=== PATIENT | male | born 1935 | race Caucasian/White ===

== ENCOUNTER 2019-01-03 20:43 | Observation (INO) ==
[2019-01-04] MEDS ORDERED: *HR* Heparin 5,000 UNIT/ML VIAL IVP PRN ×2 (02:38)
[2019-01-04] MEDS ORDERED: Heparin 25,000 UNIT/250 ML D5W 25,000 UNIT/250 ML IV.SOLN IVC SCH (02:45)
[2019-01-04 03:22] LABS: Hemoglobin 8.7 g/dL (12.9-16.9)
[2019-01-04 03:23] LABS: Hematocrit 27.2 % (37.5-50.1); Immature Platelets 5.2 % (1.1-6.1); Mean Corpuscular Hemoglobin 28.7 pg (28.0-33.3); Mean Corpuscular Volume 89.8 fL (83.0-100.0); Mean Platelet Volume 11.2 fL (9.4-12.4); Red Blood Count 3.03 M/mcL (4.19-5.50); Red Cell Distribution Width 14.5 % (11.5-14.5); White Blood Count 5.9 K/mcL (4.3-11.1)
[2019-01-04 03:29] LABS: Prothrombin Time 23.2 Seconds (9.4-12.1)
[2019-01-04 03:43] LABS: Calcium 8.5 mg/dL (8.6-10.3); Digoxin 0.6 ng/mL (0.8-2.0); Potassium 5.7 mEq/L (3.5-5.1)
[2019-01-04] MEDS ORDERED: Naloxone 0.4 MG/ML INJ IVP PRN (03:44)
[2019-01-04 03:47] LABS: Troponin I 0.08 ng/mL (< 0.04)
[2019-01-04] MEDS ORDERED: D5% in Water 1,000 ML IVC PRN (04:25)
[2019-01-04] MEDS ORDERED: *HR* Dextrose 50 % in Water (Syg) 50 ML SYRINGE IVP PRN (04:25)
[2019-01-04] MEDS ORDERED: Dextrose Gel 15 GM/37.5 ML TUBE PO PRN ×2 (04:25)
[2019-01-04] MEDS ORDERED: Albuterol 2.5 MG/3 ML NEBULIZER IH ONE (04:29)
--- NOTE | 2019-01-04 04:38 | Internal Med History&Physical ---
Date of Encounter: 01/04/19 Time of Encounter: 03:00 Internal Medicine - H&P: HPI Chief complaint: Hyperkalemia Admitted From: Hospital to Hospital Transfer Plans for Post Hospital Care: Home History of present illness: Mr. 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 He was unclear exactly which lab value was abnormal however. He figured that it was perhaps his hemoglobin. He states that he has been feeling somewhat dizzy over the last few days as well and somewhat short of breath. He denied other complaints. He had gone to see his school guard for routine checkup. [employer] vital signs: Temperature 97.8, pulse 60, respiratory rate 16, blood pressure 112/63, O2 saturation 97% on room air. [employer] [facility] lab values: CBC: white count 7.5, hemoglobin 9.4, platelets 108 BMP: Sodium 132, potassium 5.9, bicarbonate 22, chloride 104, B1 53, creatinine 1.93, glucose 252. Lactic acid 1.2 Troponin 0.07 BNP 274 INR 1.9 Urinalysis negative for infection EKG: Heart rate 70, ventricularly paced rhythm, QTC 488. Similar to previous EKG performed in June of this year. Chest x-ray showed moderate left lower lobe opacity which may represent atelectasis, pleural fluid or underlying pneumonia. There is also mild pulmonary edema and a small moderate right pleural effusion In the [facility] emergency department patient received a 500 mL bolus of IV fluids, 40 mg of Lasix and was started on heparin drip due to elevated troponin level and an INR of 1.9. He was transferred to [facility] for further management. Upon my evaluation, patient is resting comfortably in hospital bed in no acute distress. He denies chest pain, abdominal pain, nausea, vomiting, diarrhea, constipation, shortness of breath and cough. Aside from his intermittent dizziness that he has experienced over the last few weeks, he has no complaints. Upon arrival to [facility] stat labs were obtained which demonstrated an improved INR of 2.0, improved renal function with creatinine of 1.88, and a slightly improved potassium level of 5.7. Patient's troponin did increase slightly to 0.08. Digoxin level was also obtained and was 0.6. The heparin drip was stopped. Patient is a full code. Past Med Surg Social Fam HX - Past Medical History Medical history: atrial fibrillation, cancer, coronary artery disease, diabetes, hyperlipidemia, hypertension, myocardial infarction Additional medical history: pacemaker Psychiatric history: no psych history - Past Surgical History Surgical History: orthopedic, other, pacemaker/AICD Additional surgical history: left shoulder. r eye lid - Social History Smoking Status: Former smoker Smokeless Tobacco Status: No Alcohol use: none Drug use: none Internal Medicine - H&P: Meds Digoxin [Lanoxin] 0.125 mg PO DAILY 04/27/15 [History] Finasteride [Proscar] 5 mg PO DAILY 04/27/15 [History] Furosemide [Lasix] 40 mg PO DAILY 04/27/15 [History] Lisinopril [Zestril] 10 mg PO BID 04/27/15 [History] Magnesium Oxide [Magnesium] 400 mg PO BID 04/27/15 [History] Metoprolol [Lopressor] 50 mg PO BID 04/27/15 [History] Omeprazole [PriLOSEC] 20 mg PO DAILY 04/27/15 [History] Potassium Chloride [Klor-Con M15] 10 meq PO BID 04/27/15 [History] Simvastatin [Zocor] 40 mg PO HS 04/27/15 [History] Tamsulosin [Flomax] 0.4 mg PO HS 04/27/15 [History] Warfarin [Coumadin] 1 mg PO DAILY 04/27/15 [History] Insulin Glargine,Hum.rec.anlog [Lantus Solostar] 70 unit SQ DAILY 03/18/17 [History] Levothyroxine Sodium [Tirosint] 25 mcg PO DAILY 06/28/18 [History] Ergocalciferol (VITAMIN D2) [Vitamin D2] 50,000 unit PO QWEEK 01/03/19 [History] Loratadine [Claritin] 10 mg PO DAILY 01/03/19 [History] predniSONE [PredniSONE] 20 mg PO DAILY 01/03/19 [History] Allergy/AdvReac Type Severity Reaction Status Date / Time No Known Allergies Allergy Verified 03/18/17 21:11 All Systems PM: A 10-system review of systems was performed and is negative for pertinent findings except as documented above in the HPI. - Constitutional Vitals: Temp Pulse Resp BP Pulse Ox 97.9 F 62 15 110/64 98 01/04/19 03:35 01/04/19 03:35 01/04/19 03:35 01/04/19 03:35 01/04/19 03:35 General appearance: Present: cooperative, A&O X 3, pleasant, no acute distress, answers questions appropriately Exam: - - Head Head exam: Present: normal inspection - Eye Eye exam: Present: EOMI, normal appearance - Respiratory Respiratory exam: Present: decreased breath sounds, CTAB. Absent: rales, respiratory distress, rhonchi, wheezes - Cardiovascular Cardiovascular exam: Present: RRR. Absent: diastolic murmur, systolic murmur - GI/Abdominal GI/Abdominal exam: Present: normal bowel sounds, soft. Absent: tenderness - Extremities Exam Extremities exam: Present: warm, radial pulses palpable and symmetrical. Absent: calf tenderness, pedal edema, tenderness - Neurological Exam Neurological exam: Present: no focal deficits, strengths equal and symetr throughout. Absent: motor sensory deficit, facial droop, speech deficit - Skin Skin exam: Present: dry, normal color, warm Internal Med - H&P Results - Labs CBC & Chem 7: 01/04/19 03:07 01/04/19 03:07 Labs: Short CBC 01/04/19 Range/Units 03:07 WBC 5.9 (4.3-11.1) K/mcL Hgb 8.7 L (12.9-16.9) g/dL Hct 27.2 L (37.5-50.1) % Plt Count 90 L (140-400) K/mcL BMP 01/04/19 03:07 Sodium 135 L Potassium 5.7 H Chloride 103 Carbon Dioxide 21 L BUN 53 H Creatinine 1.88 H Glucose 215 H Calcium 8.5 L Cardiac Enzymes 01/04/19 Range/Units 03:07 Troponin I 0.08 H* (< 0.04) ng/mL - Assessment and Plan (1) Hyperkalemia Current Visit: No Status: Acute Assessment and plan: Potassium level 5.9, on repeat improved to 5.7. No peaked T waves on EKG. Patient takes supplemental potassium at home, as he is on Lasix. Hold potassium Giving albuterol nebulizer Kayexalate 15 g Calcium gluconate Subcutaneous insulin Cardiac telemetry Repeat BMP in 6 hours (2) Abnormal cardiac enzyme level Current Visit: No Status: Acute Assessment and plan: Patient has elevated cardiac enzymes, however a review of his prior troponins indicate he has had a chronically elevated troponin. Currently his troponin levels are lower than his previous values. He is therapeutic with his Coumadin, denies chest pain and EKG is nonischemic, and similar to his previous EKG. echocardiogram performed in June of this year: Impressions: LVEF 60%. Mild left ventricular diastolic dysfunction. Definity echo contrast was used. Normal right ventricular structure and function. Mild tricuspid regurgitation. No pulmonary hypertension by TR gradient. There is a trivial pericardial effusion present. There is no echocardiographic evidence of tamponade. Cardiac telemetry Continue to trend troponin Continue anticoagulation Limited echocardiogram (3) Abnormal chest x-ray Current Visit: Yes Status: Acute Assessment and plan: Patient's chest x-ray did demonstrate moderate left lower lobe opacity, possible underlying pneumonia or pleural fluid. Patient has not had a cough and denies shortness of breath. Patient's white count also not elevated. He does not meet sepsis criteria. Etiology unclear, could be pleural fluid or atelectasis. Patient did receive a 500 mL bolus of IV fluids at [facility] emergency department. Breath sounds clear on exam. No increased work of breathing. Blood cultures obtained Hold off on antibiotics for now Obtain urine antigens Monitor for worsening signs of infection (4) Acute kidney injury Current Visit: No Status: Acute Assessment and plan: Patient has history of chronic kidney disease stage III. Follows with nephrology. Slight improvement in creatinine from the [facility] labs. He did receive a 500 mL bolus of IV fluids. Avoid nephrotoxic medications Really dose meds Continue gentle IV fluid hydration Monitor respiratory function (5) Atrial fibrillation Current Visit: Yes Status: Acute Assessment and plan: Patient on Coumadin and metoprolol. Continue home meds Cardiac telemetry Qualifiers: Atrial fibrillation type: chronic Qualified Code(s): I48.2 - Chronic atrial fibrillation (6) Diabetes Current Visit: Yes Status: Acute Assessment and plan: Patient is an insulin dependent diabetic Monitor sugars every 6 hours Nothing by mouth Low dose insulin sliding scale as needed Hold home meds. 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 He has seen hematology/oncology for this. Will try to avoid heparin drip if poss ible, heparin drip started at [facility] has been discontinued. Patient is therapeutic on his Coumadin however. Continue to monitor (8) DVT prophylaxis Current Visit: Yes Status: Acute Assessment and plan: Continue home Coumadin, currently in therapeutic range Pharmacy to dose Monitor INRs - Time Spent With Patient Total time spent is greater than 50% in coordination of care (as documented) at patient's floor/unit and/or counseling patient:
[2019-01-04] MEDS ORDERED: Calcium Gluconate 1gm/50mL 1 GM/50 ML BAG IVPB ONE (05:00)
[2019-01-04] MEDS: 0.9 % Sodium Chloride 500 ML IVC SCH ×2 (05:09→11:01)
[2019-01-04] MEDS ORDERED: Insulin LISPRO 300 UNITS/3 ML VIAL SQ SCH (06:00)
[2019-01-04] MEDS: Insulin LISPRO 300 UNITS/3 ML VIAL SQ SCH ×3 (11:59→21:36)
[2019-01-04 12:05] LABS: Calcium 8.4 mg/dL (8.6-10.3); Potassium 5.2 mEq/L (3.5-5.1)
--- NOTE | 2019-01-04 13:35 | Cardiology Consult Note ---
<Mckenna Newton - Last Filed: 01/04/19 14:51> Date of Encounter: 01/04/19 Time of Encounter: 14:00 Assessment and Plan (1) Elevated troponin Current Visit: Yes Status: Acute Mild troponin elevation in the setting of hyperkalemia, ANNELIESE. Presentation is not consistent with ACS. No chest pain. No ECG changes present. Upon review, appears patient has chronic troponin elevation. TTE this admission shows preserved LVEF with normal wall motion. Will restart home BB at reduced dose given marginal BP. On coumadin for afib. Resume statin. Continue medical therapy. No further cardiac testing recommended at this time. (2) Atrial fibrillation Current Visit: Yes Status: Acute Hx of afib on Coumadin for AC. INR monitored by Dr. Tapia. Rate controlled upon exam, paced rhythm. Will resume home BB at reduced dose given marginal BP. Resume digoxin, if able upon d/c if renal function normalizes. HgB 8.7, PLT 90. Thrombcytopenia appears to be chronic; however H/H continues to gradually downtrend. Recommend GI consult prior to d/c given he is on full anticoagulation with coumadin. Qualifiers: Atrial fibrillation type: persistent Qualified Code(s): I48.1 - Persistent atrial fibrillation Discussion w patient/family: The assessment and plan as outlined above was discussed with the patient and/or family members who expressed understanding and agreement. All questions were answered. Thank you for involving us in the care of your patient. Please call with any questions. The patient will be discussed and reviewed with Dr. Staley; changes to be made accordingly. History of Present Illness Consult date: 01/04/19 Requesting physician: Adolfo Ann Consult reason: Elevated troponin Chief complaint: Dizziness History of present illness: Mr. Burnett is a 83 year old male with PMHx significant of afib on coumadin, tachybrady syndome s/p PPM, HTN, and HLD who presented to the ED under direction of Dr. Tapia (primary Vehicle Check In Clerk) due to abnormal labs. He is unsure which lab result was abnormal, could have been his potassium. He reports dizziness that was also present at time of admission that has since resolved. Lab results revealed SCr 1.9, K 5.9. He was given IVF in the ED and patient reports his dizziness resolved. He was sent to [facility] for further evaluation. Past Med Surg Social Fam HX - Past Medical History Attestation: Yes The following information was validated with the patient. Source: patient Medical history: atrial fibrillation, cancer, coronary artery disease, diabetes, hyperlipidemia, hypertension, myocardial infarction Additional medical history: pacemaker Psychiatric history: no psych history - Past Surgical History Surgical History: orthopedic, other, pacemaker/AICD Additional surgical history: left shoulder. r eye lid - Social History Smoking Status: Former smoker Smokeless Tobacco Status: No Alcohol use: none Drug use: none - Family History Mother History Unknown: Yes Father History Unknown: Yes Medications and Allergies Digoxin [Lanoxin] 0.125 mg PO DAILY 04/27/15 [History] Finasteride [Proscar] 5 mg PO DAILY 04/27/15 [History] Furosemide [Lasix] 40 mg PO DAILY 04/27/15 [History] Lisinopril [Zestril] 10 mg PO BID 04/27/15 [History] Magnesium Oxide [Magnesium] 400 mg PO BID 04/27/15 [History] Metoprolol [Lopressor] 50 mg PO BID 04/27/15 [History] Omeprazole [PriLOSEC] 20 mg PO DAILY 04/27/15 [History] Potassium Chloride [Klor-Con M15] 10 meq PO BID 04/27/15 [History] Simvastatin [Zocor] 40 mg PO HS 04/27/15 [History] Tamsulosin [Flomax] 0.4 mg PO HS 04/27/15 [History] Warfarin [Coumadin] 1 mg PO DAILY 04/27/15 [History] Insulin Glargine,Hum.rec.anlog [Lantus Solostar] 70 unit SQ DAILY 03/18/17 [History] Levothyroxine Sodium [Tirosint] 25 mcg PO DAILY 06/28/18 [History] Ergocalciferol (VITAMIN D2) [Vitamin D2] 50,000 unit PO QWEEK 01/03/19 [History] Loratadine [Claritin] 10 mg PO DAILY 01/03/19 [History] predniSONE [PredniSONE] 20 mg PO DAILY 01/03/19 [History] Allergy/AdvReac Type Severity Reaction Status Date / Time No Known Allergies Allergy Verified 03/18/17 21:11 All Systems Review: The remainder of the systems were reviewed and are negative - Cardiovascular Cardiovascular: as per HPI Physical Examination Vital Signs, Last 4 Hours Temp Pulse Resp BP Pulse Ox 01/04/19 10:50 97.6 F 63 17 104/61 97 General: Conversant, No Apparent Distress, Other (elderly white male) HEENT: Atraumatic, Normocephaly, Mucus Membranes Moist Cardiac: Reg Rate and Rhythm, Normal S1 and S2 Lungs: Normal Breath Sounds Neuro: Alert and responsive Abdomen: Soft Skin: No rashes noted on visualized skin Musculoskeletal: No Chest Wall Tenderness Extremities: No Edema, Normal Pulses Results 01/04/19 03:07 01/04/19 10:18 Lab Results 01/04/19 01/04/19 01/04/19 03:07 03:07 03:07 WBC 5.9 Hgb 8.7 L Hct 27.2 L Plt Count 90 L INR 2.0 Sodium 135 L Potassium 5.7 H Chloride 103 Carbon Dioxide 21 L BUN 53 H Creatinine 1.88 H Glucose 215 H Calcium 8.5 L Troponin I 0.08 H* 01/04/19 10:18 WBC Hgb Hct Plt Count INR Sodium 135 L Potassium 5.2 H Chloride 105 Carbon Dioxide 21 L BUN 48 H Creatinine 1.88 H Glucose 157 H Calcium 8.4 L Troponin I Active Medications Dextrose/Water (Dextrose 50% (Syg)) 25 ml IVP AD PRN PRN Reason: Hypoglycemia Stop: 07/06/19 04:26 Glucagon (Glucagen) 1 mg IM ONCE PRN PRN Reason: Hypoglycemia Stop: 07/06/19 04:26 Glucose (Gluctose) 15 gm PO ONCE PRN PRN Reason: Hypoglycemia Stop: 07/06/19 04:26 Glucose (Gluctose) 30 gm PO ONCE PRN PRN Reason: Hypoglycemia Stop: 07/06/19 04:26 Dextrose (Dextrose 5%) 1,000 mls @ 100 mls/hr IVC .Q10H PRN PRN Reason: HYPOGLYCEMIA Stop: 07/06/19 04:26 Insulin Human Lispro (Humalog) 0 units SQ ACHS [facility]; Protocol Stop: 07/06/19 11:31 Last Admin: 01/04/19 11:59 Dose: 4 units Documented by: Naloxone HCl (Narcan) 0.4 mg IVP Q2MPRN PRN PRN Reason: SEE COMMENTS Stop: 07/06/19 03:45 Warfarin Sodium (Coumadin Perpt) 1 each PO DAILY@1800 PRN; Protocol PRN Reason: Placeholder Stop: 07/06/19 18:01 Warfarin Sodium (Coumadin) 0.5 mg PO 1800 ONE Stop: 01/04/19 18:01 - Imaging and Cardiology Echo: report reviewed Other Results: 12 hour tele; avg HR=74 paced rhythm. - EKG Interpretation EKG results cardiology: personally reviewed Consult Discharge Plan - Plan Referrals: NONE,PCP [Primary Care Provider] - Farhad Rodas, DIRECTOR OF DATABASE MARKETING [Non-Partnered Physician] - 01/07/19 10:00 am (Please follow up as schedule...) <Miles Staleyrey - Last Filed: 01/04/19 16:23> Date of Encounter: 01/04/19 - Attending Attestation I have personally performed a face to face evaluation on this patient. I have reviewed and agree with the care plan. History and Exam by me shows: Sent to ER for abnormal labs. Had elevated potassium, creatinine and troponin. No evidence of ACS. Renal function and potassium have improved with hydration. Troponin elevation is chronic and likely secondary to renal failure. Assessment and Plan Discussion w patient/family: The assessment and plan as outlined above was discussed with the patient and/or family members who expressed understanding and agreement. All questions were answered. Thank you for involving us in the care of your patient. Please call with any questions. History of Present Illness History of present illness: Mr. Burnett is a 83 year old male All Systems Review: The remainder of the systems were reviewed and are negative Physical Examination Vital Signs, Last 4 Hours Temp Pulse Resp BP Pulse Ox 01/04/19 15:21 97.7 F 67 16 114/69 98 Results 01/04/19 03:07 01/04/19 10:18 Lab Results 01/04/19 01/04/19 01/04/19 03:07 03:07 03:07 WBC 5.9 Hgb 8.7 L Hct 27.2 L Plt Count 90 L INR 2.0 Sodium 135 L Potassium 5.7 H Chloride 103 Carbon Dioxide 21 L BUN 53 H Creatinine 1.88 H Glucose 215 H Calcium 8.5 L Troponin I 0.08 H* 01/04/19 10:18 WBC Hgb Hct Plt Count INR Sodium 135 L Potassium 5.2 H Chloride 105 Carbon Dioxide 21 L BUN 48 H Creatinine 1.88 H Glucose 157 H Calcium 8.4 L Troponin I
--- NOTE | 2019-01-04 15:37 | Event Note ---
Date of Encounter: 01/04/19 Time of Encounter: 08:00 H & P reviewed. Pt was seen at bedside. No interval events. Pt denies any acute complaints. Troponin continues to remain same and mildly elevated, no cardiac interventions planeed, echo with no new findings. Regarding drop in hgb, will consult GI for possible scope. Potassium continues to improve Will be monitored
--- NOTE | 2019-01-04 16:52 | Event Note ---
Date of Encounter: 01/04/19 Time of Encounter: 16:30 FOBT posiitve Will hold coumadin D/W Dr. Koenig, will keep the pt NPO for possible endoscopyy tomorrow
--- NOTE | 2019-01-04 17:32 | Internal Medicine Consult Note ---
Date of Encounter: 01/07/19 Time of Encounter: 17:32 - Assessment and Plan (1) Anemia Status: Chronic Assessment and plan: This gentleman has had a slight drop in his hemoglobin since admission, his INR is right around 2.0. I am not convinced there is GI bleeding, in fact looking through previous charts and diagnosis. It looks like he he has a long-standing anemia, most likely due to chronic kidney disease. I reviewed previous bone marrow aspirates Currently is not interested in providing upper endoscopy, nor my suspicion is that he requires at this time, I will try to reach out to the daughter to provide some information. I have discussed risks and benefits of upper endoscopy with him if we do have to pursue that. Qualifiers: Anemia type: unspecified type Qualified Code(s): D64.9 - Anemia, unspecified (2) Acute on chronic diastolic (congestive) heart failure Status: Acute (3) Atrial fibrillation Status: Acute Qualifiers: Atrial fibrillation type: persistent Qualified Code(s): I48.1 - Persistent atrial fibrillation (4) Diabetes Status: Chronic Qualifiers: Diabetes mellitus type: type 2 Diabetes mellitus fdc insulin use: with dedicated intermodal truck driver use Diabetes mellitus complication status: with hyperglycemia Qualified Code(s): E11.65 - Type 2 diabetes mellitus with hyperglycemia; Z79.4 - MCFP (current) use of insulin (5) Thrombocytopenia Status: Chronic Assessment and plan: 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 Internal Medicine - CN: HPI - Data of Consult Requesting Physician: Jesús Webber - Consult Narrative Reason for consult: Drop in hemoglobin History of present illness: Mr. Burnett is a 83 year old male, currently seen in the general medical floor, I was called by the hospitalist roughly an hour ago, this gentleman has had a slight trend down of less than 1 g of hemoglobin in the past 24 hours, apparently was also Hemoccult positive. This gentleman is resting in bed very comfortable, very stoic somewhat quiet. No distress noted. He reports no abdominal pain, change in his bowel movements, no nausea no vomiting or reflux symptoms. He is on PPI therapy, but cannot tell me why, he a lso takes Coumadin for chronic atrial fibrillation. He actually was a direct admit from family practice office or cardiology, due to what may have been a drop in hemoglobin. I have currently explain the possible benefits of upper endoscopy with him with risks and benefits, but is not sure he wants to be that aggressive in his care. He understands , we will have to hold the Coumadin for at least a while if not for a good long time, and risk of stroke certainly is possible. Past Med Surg Social Fam HX - Past Medical History Medical history: atrial fibrillation, cancer, coronary artery disease, diabetes, hyperlipidemia, hypertension, myocardial infarction, other (Reports a history of colon cancer sometime ago. Also reports pacemaker) Additional medical history: pacemaker Psychiatric history: no psych history - Past Surgical History Surgical History: orthopedic, other, pacemaker/AICD Additional surgical history: left shoulder. r eye lid - Social History Smoking Status: Former smoker Smokeless Tobacco Status: No Alcohol use: none Drug use: none - Family History Mother History Unknown: Yes Father History Unknown: Yes - Constitutional Constitutional: no anorexia, no fatigue, no fever(s), no malaise, no weight loss - Cardiovascular Cardiovascular ROS IM: irregular heart rhythm, no chest pain, no dyspnea, no dyspnea on exertion, no syncope - Respiratory Respiratory: no cough, no dyspnea, no chest congestion - Gastrointestinal Gastrointestinal: no abdominal pain, no diarrhea, no heartburn, no hematemesis, no hematochezia, no loose stools, no melena - Neurological Neurological ROS: no abnormal gait, no abnormal speech, no confusion Internal Medicine - CN: Meds Finasteride [Proscar] 5 mg PO DAILY 04/27/15 [History] Furosemide [Lasix] 40 mg PO DAILY 04/27/15 [History] Magnesium Oxide [Magnesium] 400 mg PO BID 04/27/15 [History] Omeprazole [PriLOSEC] 20 mg PO DAILY 04/27/15 [History] Simvastatin [Zocor] 40 mg PO HS 04/27/15 [History] Tamsulosin [Flomax] 0.8 mg PO HS 04/27/15 [History] Warfarin [Coumadin] 1 mg PO DAILY 04/27/15 [History] Insulin Glargine,Hum.rec.anlog [Lantus Solostar] 70 unit SQ DAILY 03/18/17 [History] Levothyroxine Sodium [Tirosint] 25 mcg PO QAM 06/28/18 [History] Ergocalciferol (VITAMIN D2) [Vitamin D2] 50,000 unit PO QWEEK 01/03/19 [History] Loratadine [Claritin] 10 mg PO DAILY 01/03/19 [History] Lisinopril 2.5 mg PO DAILY 01/04/19 [History] Metoprolol [Lopressor] 25 mg PO BID #0 01/05/19 [Rx] Allergy/AdvReac Type Severity Reaction Status Date / Time No Known Allergies Allergy Verified 03/18/17 21:11 Internal Med - CN: Exam - Constitutional Vitals: Temp Pulse Resp BP Pulse Ox 97.7 F 67 16 114/69 98 01/04/19 15:01/04/19 15:01/04/19 15:01/04/19 15:01/04/19 15:21 General appearance IM: Present: A&O X 3, pleasant, no acute distress, answers questions appropriately - Head Head exam: Present: atraumatic - Eye Eye exam: Present: EOMI, conjuntiva pink, sclera anicteric - Neck Neck exam general surgery: Present: full ROM, supple, trachea midline. Absent: nuchal rigidity - Respiratory Respiratory exam: Present: CTAB - Cardiovascular Cardiovascular exam IM: Present: RRR, +S1, +S2. Absent: JVD - GI/Abdominal GI/Abdominal exam IM: Present: normal bowel sounds, soft, no peritoneal signs. Absent: hepatomegaly, rebound, rigid, splenomegaly - Rectal Rectal exam: Present: deferred Internal Medicine - CN: Reslt - Labs CBC & Chem 7: 01/05/19 04:36 01/05/19 04:36 Labs: Short CBC 01/04/19 Range/Units 03:07 WBC 5.9 (4.3-11.1) K/mcL Hgb 8.7 L (12.9-16.9) g/dL Hct 27.2 L (37.5-50.1) % Plt Count 90 L (140-400) K/mcL BMP 01/04/19 01/04/19 03:07 10:18 Sodium 135 L 135 L Potassium 5.7 H 5.2 H Chloride 103 105 Carbon Dioxide 21 L 21 L BUN 53 H 48 H Creatinine 1.88 H 1.88 H Glucose 215 H 157 H Calcium 8.5 L 8.4 L Cardiac Enzymes 01/04/19 Range/Units 03:07 Troponin I 0.08 H* (< 0.04) ng/mL - ABG Interpretation ABG results: PT/INR, D-dimer PT 23.2 Seconds (9.4-12.1) H 01/04/19 03:07 - Impressions Impressions Echocardiogram Limited Views 01/04/19 11:02 Impressions: LVEF 60%. Normal LV chamber size and function. Mild concentric left ventricular hypertrophy. Atypical septal motion consistent with paced rhythm. Pleural effusion noted. Findings: Study Quality * Technically sub-optimal due to poor echocardiographic windows. ECG Findings * Paced rhythm. Left Ventricle * LVEF 60%. * Normal LV chamber size and function. * Mild concentric left ventricular hypertrophy. * Atypical septal motion consistent with paced rhythm. Aorta * Normally sized aortic root. Pericardium * There is a trivial pericardial effusion present. Pleural Effusion * Pleural effusion noted. Device lead * A device lead was visualized in the right atrium and right ventricle. Consult Discharge Plan - Plan Instructions: Upper Gastrointestinal Endoscopy (DC) Additional Instructions: Frequent small meals Avoid heavy fiber Do not take supplemental potassium Follow up with PCP in 1 week. Referrals: NONE,PCP [Primary Care Provider] - Farhad Rodas CNP [Non-Partnered Physician] - 01/07/19 10:00 am (Please follow up as schedule...) Joseph Pimentel MD [Partnered Physician] -
[2019-01-04] MEDS ORDERED: *HR* Warfarin 1 MG TABLET PO ONE (18:00)
[2019-01-04] MEDS ORDERED: Warfarin perPT PO PRN (18:00)
[2019-01-05 05:27] LABS: Eosinophils # 0.1 K/mcL (0.0-0.6); Eosinophils % 1.6 %; Immature Granulocytes % 0.4 % (0-4); Lymphocytes # 0.9 K/mcL (0.6-4.6); Lymphocytes % 11.9 %; Mean Corpuscular Hemoglobin 28.3 pg (28.0-33.3); Mean Corpuscular Volume 91.2 fL (83.0-100.0); Mean Platelet Volume 11.1 fL (9.4-12.4); Monocytes # 0.6 K/mcL (0.0-1.3); Monocytes % 7.4 %; Neutrophils # 5.9 K/mcL (1.6-8.9); Platelet Count 104 K/mcL (140-400); Red Blood Count 3.18 M/mcL (4.19-5.50); Red Cell Distribution Width 14.7 % (11.5-14.5); Segmented Neutrophils % 78.7 %; White Blood Count 7.5 K/mcL (4.3-11.1)
[2019-01-05 05:32] LABS: INR 2.4; Prothrombin Time 27.4 Seconds (9.4-12.1)
[2019-01-05 05:45] LABS: Calcium 8.4 mg/dL (8.6-10.3)
--- NOTE | 2019-01-05 08:16 | Event Note ---
Date of Encounter: 01/05/19 Time of Encounter: 08:12 I had a short visit with the patient this morning, he is still not wanting to have upper endoscopy. There is noted trend of his hemoglobin down to's morning, otherwise admits having no abdominal pain and seeing no blood in his bowels. Rectal exam this morning disclosed can stool, no melena. A benign abdominal exam, with mild firm abdomen, active bowel sounds, nonpainful to palpation. Looking back through his outpatient record, it appears 6 months ago, his hemoglobin was stable. I do believe he needs iron studies, along with B12 and folate and so we will get those ordered. Again not convinced he has had a GI bleed at this time. Still trying to reach his daughter as well to have a further discussion.
[2019-01-05] MEDS: Insulin LISPRO 300 UNITS/3 ML VIAL SQ SCH ×2 (08:45→13:32)
[2019-01-05] MEDS ORDERED: Loratadine 10 MG TABLET PO SCH (09:00)
[2019-01-05] MEDS ORDERED: Finasteride 5 MG TABLET PO SCH (09:00)
[2019-01-05] MEDS ORDERED: Furosemide 40 MG TABLET PO SCH (09:00)
[2019-01-05] MEDS ORDERED: Levothyroxine 25 MCG TABLET PO SCH (09:00)
[2019-01-05] MEDS ORDERED: Magnesium Oxide 400 MG TABLET PO SCH (09:00)
[2019-01-05 09:13] LABS: Alanine Aminotransferase 14 Units/L (7-52); Lactate Dehydrogenase 156 Units/L (140-271)
[2019-01-05 09:15] LABS: % Iron Saturation 28 % (20-55); Iron 49 mcg/dL (65-175); Transferrin 123 mg/dL (203-362)
[2019-01-05 09:28] LABS: Ferritin 683 ng/mL (20-250)
[2019-01-05 09:33] LABS: Folate 6.9 ng/mL (3.0-16.0)
[2019-01-05] MEDS ORDERED: FLU Vac QV 19-20 (6Month+)/PF 0.5 ML SYRINGE IM ONE (09:43)
[2019-01-05] MEDS ORDERED: *HR* FentaNYL (PF) 100 MCG/2 ML VIAL ONE (11:49)
[2019-01-05] MEDS ORDERED: Simethicone 40 MG/0.6 ML MLS IR ONE (11:50)
[2019-01-05] MEDS ORDERED: *HR* Midazolam HCl 5 MG/5 ML VIAL IVP ONE ×2 (11:50)
[2019-01-05] MEDS ORDERED: Tetracaine/Benzocaine/Butamben 1 SPRAY AEROSOL MM ONE (11:50)
[2019-01-05] MEDS ORDERED: *HR* FentaNYL (PF) 100 MCG/2 ML VIAL IVP ONE (11:50)
--- NOTE | 2019-01-05 11:51 | Pre-Sedation Evaluation ---
Pre-sedation evaluation - Pre-sedation checklist Date of procedure: 01/05/19 (') Procedure: EGD Recent Vitals: Last Vital Signs Temp 97.7 F 01/05/19 08:01 Pulse 65 01/05/19 08:01 Resp 16 01/05/19 08:01 BP 124/64 01/05/19 08:01 Pulse Ox 98 01/05/19 08:51 H&P (including ROS) documented in medical record: Yes Previous reaction to sedatives/anesthetics: No Dietary Status: NPO after Midnight Airway Assessment: Patient can open mouth completely, TMJ function normal Dentition: No loose teeth or bridges Possible difficult airway: No ASA Classification *see protocol: CLASS II-Mild systemic disease Plan of Care: Pt appropriate candidate for procedure/moderate/conscious sedation
--- NOTE | 2019-01-05 12:13 | Internal Med Progress Note ---
Date of Encounter: 01/07/19 Time of Encounter: 12:11 - Assessment and plan (1) Anemia Status: Chronic Assessment and plan: Other labs pending for Anemia.. does not have any source for Upper GI bleeding. Stool is not melanotic. Does have Bilroth 1 anastomosis, consistent with prior Gastric Lymphoma resection. 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 Avoid heavy fiber Qualifiers: Qualified Code(s): T18.2XXA - Foreign body in stomach, initial encounter - Constitutional Vitals: Temp Pulse Resp BP Pulse Ox 97.7 F 61 18 97/53 99 01/05/19 08:01 01/05/19 12:05 01/05/19 12:05 01/05/19 12:05 01/05/19 12:05 General appearance: Present: A&O X 3, pleasant, no acute distress, answers ques tions appropriately Internal Medicine: Result - Labs CBC & Chem 7: 01/05/19 04:36 01/05/19 04:36 Labs: Short CBC 01/05/19 Range/Units 04:36 WBC 7.5 (4.3-11.1) K/mcL Hgb 9.0 L (12.9-16.9) g/dL Hct 29.0 L (37.5-50.1) % Plt Count 104 L (140-400) K/mcL Neutrophils # 5.9 (1.6-8.9) K/mcL BMP 01/05/19 04:36 Sodium 135 L Potassium 5.0 Chloride 105 Carbon Dioxide 22 L BUN 54 H Creatinine 1.89 H Glucose 178 H Calcium 8.4 L Cardiac Enzymes 01/04/19 Range/Units 10:18 Troponin I 0.08 H* (< 0.04) ng/mL Liver Function 01/05/19 Range/Units 08:32 ALT 14 (7-52) Units/L - ABG Interpretation ABG results: PT/INR, D-dimer PT 27.4 Seconds (9.4-12.1) H 01/05/19 04:36 - Impressions Impressions Echocardiogram Limited Views 01/04/19 11:02 Impressions: LVEF 60%. Normal LV chamber size and function. Mild concentric left ventricular hypertrophy. Atypical septal motion consistent with paced rhythm. Pleural effusion noted. Findings: Study Quality * Technically sub-optimal due to poor echocardiographic windows. ECG Findings * Paced rhythm. Left Ventricle * LVEF 60%. * Normal LV chamber size and function. * Mild concentric left ventricular hypertrophy. * Atypical septal motion consistent with paced rhythm. Aorta * Normally sized aortic root. Pericardium * There is a trivial pericardial effusion present. Pleural Effusion * Pleural effusion noted. Device lead * A device lead was visualized in the right atrium and right ventricle. Consult Discharge Plan - Plan Instructions: Upper Gastrointestinal Endoscopy (DC) Additional Instructions: Frequent small meals Avoid heavy fiber Do not take supplemental potassium Follow up with PCP in 1 week. Referrals: NONE,PCP [Primary Care Provider] - Farhad Rodas CNP [Non-Partnered Physician] - 01/07/19 10:00 am (Please follow up as schedule...) Joseph Pimentel MD [Partnered Physician] -
[2019-01-05 12:46] VITALS: BP 101/63
--- NOTE | 2019-01-05 13:44 | Discharge Summary ---
- NOTES TO OUTPATIENT PROVIDER Notes to Outpatient Provider: Was brought due to abnormal labs, potassium was elevated as well as troponin. He has chronic troponin elevation, no cardiac interventions done. Stopped potassium he was taking outpatient. May need follow up with the GI as outpt. Orders not resulted at time of discharge: Pending orders 01/04/19 03:26 Blood Culture [Culture,Blood] [BC] Stat 01/05/19 08:32 MMA (VIT B12 STATUS) Routine Date of Encounter: 01/05/19 Time of Encounter: 10:15 - Discharge Diagnosis (1) Anemia Priority: Primary Status: Chronic Qualifiers: Anemia type: unspecified type Qualified Code(s): D64.9 - Anemia, unspecified (2) Atrial fibrillation Priority: Secondary Status: Acute Qualifiers: Atrial fibrillation type: persistent Qualified Code(s): I48.1 - Persistent atrial fibrillation (3) Diabetes Priority: Secondary Status: Chronic Qualifiers: Diabetes mellitus type: type 2 Diabetes mellitus fpc insulin use: with intermediate designer use Diabetes mellitus complication status: with hyperglycemia Qualified Code(s): E11.65 - Type 2 diabetes mellitus with hyperglycemia; 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 Burnett is a 83 year old male who was sent to the hospital after he was called by the attendance secretary for his abnormal labs. Patient troponin was elevated at 0.08, potassium was 5.7 and hemoglobin was 8.7. EKG did not show any new changes. Patient troponin continue to be at 0.08. On further review of the records, it was noted that the patient troponin eas always elevated. Because of the low hemoglobin, FOBT was done which was positive. GI was consulted and patient got endoscopy which showed normal esophagus, no signs of bleeding. Recommendations were to continue PPI. Patient would be started back on his home Coumadin. Regarding his elevated potassium, patient instructed to stop taking supplemental potassium. He is being discharged in stable condition. Advised the patient to stop taking potassium. Patient metoprolol dose was decreased because of low blood pressure. Advised the patient to follow with the PCP and tip cutter as outpatient for his anemia. - Time Spent with Patient Total time spent providing and/or coordinating discharge services: 35 minutes - Discharge Medications Prescriptions: Continued Warfarin [Coumadin] 1 mg PO DAILY Furosemide [Lasix] 40 mg PO DAILY Finasteride [Proscar] 5 mg PO DAILY Omeprazole [PriLOSEC] 20 mg PO DAILY Magnesium Oxide [Magnesium] 400 mg PO BID Tamsulosin [Flomax] 0.8 mg PO HS Simvastatin [Zocor] 40 mg PO HS Lisinopril 2.5 mg PO DAILY Insulin Glargine,Hum.rec.anlog [Lantus Solostar] 70 unit SQ DAILY Levothyroxine Sodium [Tirosint] 25 mcg PO QAM Loratadine [Claritin] 10 mg PO DAILY Ergocalciferol (VITAMIN D2) [Vitamin D2] 50,000 unit PO QWEEK Changed Metoprolol [Lopressor] 25 mg PO BID #0 Discontinued Potassium Chloride [Klor-Con M15] 10 meq PO BID Home Medications: Finasteride [Proscar] 5 mg PO DAILY 04/27/15 [History] Furosemide [Lasix] 40 mg PO DAILY 04/27/15 [History] Magnesium Oxide [Magnesium] 400 mg PO BID 04/27/15 [History] Omeprazole [PriLOSEC] 20 mg PO DAILY 04/27/15 [History] Simvastatin [Zocor] 40 mg PO HS 04/27/15 [History] Tamsulosin [Flomax] 0.8 mg PO HS 04/27/15 [History] Warfarin [Coumadin] 1 mg PO DAILY 04/27/15 [History] Insulin Glargine,Hum.rec.anlog [Lantus Solostar] 70 unit SQ DAILY 03/18/17 [History] Levothyroxine Sodium [Tirosint] 25 mcg PO QAM 06/28/18 [History] Ergocalciferol (VITAMIN D2) [Vitamin D2] 50,000 unit PO QWEEK 01/03/19 [History] Loratadine [Claritin] 10 mg PO DAILY 01/03/19 [History] Lisinopril 2.5 mg PO DAILY 01/04/19 [History] Metoprolol [Lopressor] 25 mg PO BID #0 01/05/19 [Rx] Allergies/Adverse Reactions: Allergy/AdvReac Type Severity Reaction Status Date / Time No Known Allergies Allergy Verified 03/18/17 21:11 Date of admission: 01/03/19 23:53 Primary care physician: PCP NONE Consults: 01/04/19 09:52 Consult to Cardiology [CONS] Routine Comment: Consulting Provider: [facility] Reason for Consult: Elevated troponin, sent by Dr. Tapia Call Completed: Yes 01/04/19 15:32 Consult to Gastroenterology [CONS] Routine Consulting Provider: [facility] Reason for Consult: Drop in hgb , currently on coumadin Call Completed: Yes 01/04/19 16:49 Consult to Physician [CONS] Routine Consulting Provider: Erasmo Koenig Reason for Consult: Endoscopy Call Completed: Yes - Constitutional Vitals: Temp Pulse Resp BP Pulse Ox 97.6 F 63 18 101/63 97 01/05/19 12:45 01/05/19 12:45 01/05/19 12:45 01/05/19 12:45 01/05/19 12:45 General appearance: Present: A&O X 3, pleasant, no acute distress, answers questions appropriately Exam: General: Alert and oriented, no physical distress, able to follow commands. Respiratory: Normal vesicular breathing, no added sounds, breathing equal in both sides. CVS: Normal heart sounds, no murmurs, regular rhthm, no edema Extremities: No peripheral edema, peripheral pulses intact. Lymph nodes: No lymphadenopathy Gastrointestinal: Soft, nontender abdomen, normal abdominal sounds. No distention noted. Genitourinary: No paravertebral tenderness. Skin: No rash, ulcers or wound. Neurological: Alert and oriented. No focal deficits. Cranial nerves II-XII intact. - Patient Status Disposition: Home, Self-Care Condition: Good - Discharge Instructions Instructions: Upper Gastrointestinal Endoscopy (DC) Follow Up With: NONE,PCP [Primary Care Provider] - Farhad Rodas CNP [Non-Partnered Physician] - 01/07/19 10:00 am (Please follow up as schedule...) Joseph Pimentel MD [Partnered Physician] - Additional Instructions: Frequent small meals Avoid heavy fiber Do not take supplemental potassium Follow up with PCP in 1 week.
== END 2019-01-05 15:45 | disposition home or self-care (01) ==
LOC: 2ANU → SUATTDRO 23:53
PROVIDERS: ADMIT Internal Medicine; ATTEND Internal Medicine

== ENCOUNTER 2019-01-10 10:46 | Inpatient (IN) ==
--- NOTE | 2019-01-10 11:24 | Emergency Department Note ---
Disposition Clinical Impression: Exertional dyspnea, Elevated troponin CHF (congestive heart failure) Qualifiers: Heart failure type: unspecified Heart failure chronicity: acute on chronic Qualified Code(s): I50.9 - Heart failure, unspecified Disposition: Admitted As Inpatient Condition: Good Referrals: Farhad Rodas, SMALL BOAT ENGINEER [Primary Care Provider] - Forms: ED Satisfaction Letter Time of Disposition: 13:01 General Adult HPI - General Chief complaint: ED Shortness of Breath/Dyspnea Stated complaint: SOB Time Seen by Provider: 01/10/19 10:53 Source: patient, family Mode of arrival: ambulatory Limitations: no limitations Nursing Notes Reviewed: Yes Vital Signs Reviewed: Yes - History of Present Illness HPI Narrative: 83-year-old male with significant past medical history of COPD and CHF presenting to the emergency department chief complaint of exertional dyspnea. According to the patient he was recently admitted. When he was discharged this weekend he was feeling okay. Throughout the week he has had worsening shortness of breath on exertion. He states when he walks a short distance he feels extremely short of breath with some chest tightness and dizziness. He is asymptomatic at rest. Denies any recent fevers or illnesses. Denies cough. Pain Scale: 0 - Related Data Home Medications Medication Instructions Recorded Confirmed Finasteride [Proscar] 5 mg PO DAILY 04/27/15 01/04/19 Furosemide [Lasix] 40 mg PO DAILY 04/27/15 01/04/19 Magnesium Oxide [Magnesium] 400 mg PO BID 04/27/15 01/04/19 Omeprazole [PriLOSEC] 20 mg PO DAILY 04/27/15 01/04/19 Simvastatin [Zocor] 40 mg PO HS 04/27/15 01/04/19 Tamsulosin [Flomax] 0.8 mg PO HS 04/27/15 01/04/19 Warfarin [Coumadin] 1 mg PO DAILY 04/27/15 01/04/19 Insulin Glargine,Hum.rec.anlog 70 unit SQ DAILY 03/18/17 01/04/19 [Lantus Solostar] Levothyroxine Sodium [Tirosint] 25 mcg PO QAM 06/28/18 01/04/19 Ergocalciferol (VITAMIN D2) 50,000 unit PO QWEEK 01/03/19 01/04/19 [Vitamin D2] Loratadine [Claritin] 10 mg PO DAILY 01/03/19 01/04/19 Lisinopril 2.5 mg PO DAILY 01/04/19 01/04/19 Previous Rx's Medication Instructions Recorded Metoprolol [Lopressor] 25 mg PO BID #0 01/05/19 Allergies Allergy/AdvReac Type Severity Reaction Status Date / Time No Known Allergies Allergy Verified 03/18/17 21:11 All systems ED: reviewed and negative except as stated. Constitutional: Denies: fever Eyes: Reports: as per HPI ENT ED: Reports: as per HPI Cardiovascular: Reports: dyspnea on exertion Respiratory: Reports: dyspnea. Denies: cough Gastrointestinal: Reports: as per HPI Genitourinary: Reports: as per HPI Musculoskeletal: Reports: as per HPI Integumentary: Reports: as per HPI Neurological: Reports: as per HPI Psychiatric: Reports: as per HPI Endocrine: Reports: as per HPI Hematological/Lymphatic: Reports: as per HPI Allergic/Immunologic: Reports: as per HPI Past Medical History - Past Medical History Attestation: Yes The following information was validated with the patient. Medical history: Reports: atrial fibrillation, cancer, coronary artery disease, diabetes, hyperlipidemia, hypertension, myocardial infarction, other (Reports a history of colon cancer sometime ago. Also reports pacemaker) Surgical history: Reports: orthopedic, other, pacemaker/AICD Psychiatric history: Reports: no psych history - Social History Smoking Status: Former smoker Smokeless Tobacco Status: No Alcohol use: Reports: none Drug use: Reports: none Physical Exam - General Limitations: no limitations General appearance: alert, in no apparent distress - Head Head exam: atraumatic, normocephalic, normal inspection - Eye Eye exam: Absent: scleral icterus - ENT ENT exam: mucous membranes moist - Neck Neck exam: Present: full ROM - Chest Chest inspection: Present: symmetric chest wall rise - Respiratory Respiratory exam: Present: other (Decreased breath sounds bilateral bases) - Cardiovascular Cardiovascular exam: Present: regular rate, normal heart sounds - Abdominal Exam Abdominal exam: Present: soft, Non-Tender. Absent: distention, guarding, rebound - Extremities Exam Extremities exam: Present: full ROM, other (3+ pitting edema bilateral lower extremities) - Neurological Exam Neurological exam: Present: alert, oriented X3 - Psychiatric Psychiatric exam: Present: normal affect, normal mood - Skin Skin exam: Present: warm, intact Course Course Narrative: 83-year-old male presenting for exertional dyspnea. In the room he is alert and oriented 3 and hemodynamically stable. Patient asymptomatic on exam. Concern for CHF exacerbation versus cardiac etiology. At this time will perform laboratory analysis, EKG, chest x-ray. Disposition pending. Patient agrees wit h this plan. - Reevaluation(s) Reevaluation #1: Patient's laboratory analysis significant for an elevated troponin at 0.08. EKG shows no acute ischemia. This troponin level unchanged from previous admission. Patient also with elevated creatinine but bettering since previous admission. Chest x-ray shows bilateral pleural effusions. At this time 1 the patient for CHF exacerbation. We will provide the patient with 40 mg of IV Lasix. I spoke with the hospitalist on-call who agrees to accept the patient. Patient remains alert and oriented 3 and hemodynamically stable. Patient agrees with this plan. Vital Signs Temperature 97.5 F L 01/10/19 10:55 Pulse Rate 62 01/10/19 10:55 Respiratory Rate 18 01/10/19 10:55 Blood Pressure 110/62 01/10/19 10:55 O2 Sat by Pulse Oximetry 99 01/10/19 10:55 Temperature 97.5 F L 01/10/19 12:59 Pulse Rate 62 01/10/19 12:59 Respiratory Rate 18 01/10/19 12:59 Blood Pressure 110/62 01/10/19 12:59 O2 Sat by Pulse Oximetry 01/10/19 12:59 Oxygen Delivery Oxygen Delivery Room Air Medical Decision Making - Lab Data Result diagrams: 01/10/19 11:48 01/10/19 11:48 Lab Results 01/10/19 01/10/19 01/10/19 Range/Units 11:48 11:48 11:48 WBC 6.6 (4.3-11.1) K/mcL RBC 3.22 L (4.19-5.50) M/mcL Hgb 9.2 L (12.9-16.9) g/dL Hct 28.4 L (37.5-50.1) % MCV 88.2 (83.0-100.0) fL MCH 28.6 (28.0-33.3) pg MCHC 32.4 (31.6-35.5) g/dL RDW 14.8 H (11.5-14.5) % Plt Count 73 L (140-400) K/mcL MPV 11.5 (9.4-12.4) fL Immature Gran % 0.5 (0-4) % Seg Neutrophils % 82.9 % Lymphocytes % 8.9 % Monocytes % 6.6 % Eosinophils % 0.9 % Basophils % 0.2 % Neutrophils # 5.5 (1.6-8.9) K/mcL Lymphocytes # 0.6 (0.6-4.6) K/mcL Monocytes # 0.4 (0.0-1.3) K/mcL Eosinophils # 0.1 (0.0-0.6) K/mcL Basophils # 0.0 (0.0-0.2) K/mcL Immature Plt Fraction 5.6 (1.1-6.1) % PT 28.0 H (9.4-12.1) Seconds INR 2.5 Sodium 134 L (136-145) mEq/L Potassium 5.1 (3.5-5.1) mEq/L Chloride 104 (98-107) mEq/L Carbon Dioxide 21 L (23-29) mEq/L BUN 48 H (8-23) mg/dL Creatinine 1.74 H (0.70-1.30) mg/dL Est GFR ( Amer) 46 L (> 60) Est GFR (Non-Af Amer) 38 L (> 60) BUN/Creatinine Ratio 28 H (6-26) Glucose 226 H (70-105) mg/dL Calculated Osmolality 298 (280-300) Calcium 8.1 L (8.6-10.3) mg/dL Troponin I 0.08 H* (< 0.04) ng/mL B-Natriuretic Peptide (Less than 100) pg/mL 01/10/19 Range/Units 11:48 WBC (4.3-11.1) K/mcL RBC (4.19-5.50) M/mcL Hgb (12.9-16.9) g/dL Hct (37.5-50.1) % MCV (83.0-100.0) fL MCH (28.0-33.3) pg MCHC (31.6-35.5) g/dL RDW (11.5-14.5) % Plt Count (140-400) K/mcL MPV (9.4-12.4) fL Immature Gran % (0-4) % Seg Neutrophils % % Lymphocytes % % Monocytes % % Eosinophils % % Basophils % % Neutrophils # (1.6-8.9) K/mcL Lymphocytes # (0.6-4.6) K/mcL Monocytes # (0.0-1.3) K/mcL Eosinophils # (0.0-0.6) K/mcL Basophils # (0.0-0.2) K/mcL Immature Plt Fraction (1.1-6.1) % PT (9.4-12.1) Seconds INR Sodium (136-145) mEq/L Potassium (3.5-5.1) mEq/L Chloride (98-107) mEq/L Carbon Dioxide (23-29) mEq/L BUN (8-23) mg/dL Creatinine (0.70-1.30) mg/dL Est GFR ( Amer) (> 60) Est GFR (Non-Af Amer) (> 60) BUN/Creatinine Ratio (6-26) Glucose (70-105) mg/dL Calculated Osmolality (280-300) Calcium (8.6-10.3) mg/dL Troponin I (< 0.04) ng/mL B-Natriuretic Peptide 253 H (Less than 100) pg/mL - Radiology Data Radiology results reviewed: Yes I reviewed the patient's radiology results. Chest X-Ray 01/10/19 12:06 IMPRESSION: 1. Cardiomegaly with pulmonary edema and pleural effusions compatible with CHF. 2. Moderate left and [id number] right pleural effusions. Dense left basilar opacity may represent a combination of atelectasis and infiltrate. Chest CT is recommended to exclude underlying neoplasm. D/ / 01/10/2019 12:10:19 Torito Belle MD / audrey Interpreting Provider: Torito Belle MD Attestation Statement - Attestation Attestation: Renee Stringer D.O., examined this patient and my medical decision-making was reviewed with the Resident Physician. I agree with the documented findings, disposition and treatment plan as described except to the extent set forth below.
--- NOTE | 2019-01-10 11:33 | Emergency Department Note ---
Disposition Clinical Impression: Exertional dyspnea, Elevated troponin CHF (congestive heart failure) Qualifiers: Heart failure type: unspecified Heart failure chronicity: acute on chronic Qualified Code(s): I50.9 - Heart failure, unspecified Disposition: Admitted As Inpatient Condition: Good Referrals: Farhad Rodas, CNC OPERATOR MACHINIST [Primary Care Provider] - Forms: ED Satisfaction Letter Time of Disposition: 13:08 General Adult HPI - General Chief complaint: ED Shortness of Breath/Dyspnea Stated complaint: SOB Time Seen by Provider: 01/10/19 10:53 Source: patient, family Mode of arrival: ambulatory Limitations: no limitations - History of Present Illness Pain Scale: 0 - Related Data Home Medications Medication Instructions Recorded Confirmed Finasteride [Proscar] 5 mg PO DAILY 04/27/15 01/04/19 Furosemide [Lasix] 40 mg PO DAILY 04/27/15 01/04/19 Magnesium Oxide [Magnesium] 400 mg PO BID 04/27/15 01/04/19 Omeprazole [PriLOSEC] 20 mg PO DAILY 04/27/15 01/04/19 Simvastatin [Zocor] 40 mg PO HS 04/27/15 01/04/19 Tamsulosin [Flomax] 0.8 mg PO HS 04/27/15 01/04/19 Warfarin [Coumadin] 1 mg PO DAILY 04/27/15 01/04/19 Insulin Glargine,Hum.rec.anlog 70 unit SQ DAILY 03/18/17 01/04/19 [Lantus Solostar] Levothyroxine Sodium [Tirosint] 25 mcg PO QAM 06/28/18 01/04/19 Ergocalciferol (VITAMIN D2) 50,000 unit PO QWEEK 01/03/19 01/04/19 [Vitamin D2] Loratadine [Claritin] 10 mg PO DAILY 01/03/19 01/04/19 Lisinopril 2.5 mg PO DAILY 01/04/19 01/04/19 Previous Rx's Medication Instructions Recorded Metoprolol [Lopressor] 25 mg PO BID #0 01/05/19 Allergies Allergy/AdvReac Type Severity Reaction Status Date / Time No Known Allergies Allergy Verified 03/18/17 21:11 Past Medical History - Past Medical History Medical history: Reports: atrial fibrillation, cancer, coronary artery disease, diabetes, hyperlipidemia, hypertension, myocardial infarction, other (Reports a history of colon cancer sometime ago. Also reports pacemaker) Surgical history: Reports: orthopedic, other, pacemaker/AICD Psychiatric history: Reports: no psych history - Social History Smoking Status: Former smoker Smokeless Tobacco Status: No Alcohol use: Reports: none Drug use: Reports: none Physical Exam - General Limitations: no limitations Course Vital Signs Temperature 97.5 F L 01/10/19 10:55 Pulse Rate 62 01/10/19 10:55 Respiratory Rate 18 01/10/19 10:55 Blood Pressure 110/62 01/10/19 10:55 O2 Sat by Pulse Oximetry 99 01/10/19 10:55 Temperature 97.5 F L 01/10/19 12:59 Pulse Rate 62 01/10/19 12:59 Respiratory Rate 18 01/10/19 12:59 Blood Pressure 110/62 01/10/19 12:59 O2 Sat by Pulse Oximetry 99 01/10/19 12:59 Oxygen Delivery Oxygen Delivery Room Air Medical Decision Making - Lab Data Result diagrams: 01/10/19 11:48 01/10/19 11:48 Lab Results 01/10/19 01/10/19 01/10/19 Range/Units 11:48 11:48 11:48 WBC 6.6 (4.3-11.1) K/mcL RBC 3.22 L (4.19-5.50) M/mcL Hgb 9.2 L (12.9-16.9) g/dL Hct 28.4 L (37.5-50.1) % MCV 88.2 (83.0-100.0) fL MCH 28.6 (28.0-33.3) pg MCHC 32.4 (31.6-35.5) g/dL RDW 14.8 H (11.5-14.5) % Plt Count 73 L (140-400) K/mcL MPV 11.5 (9.4-12.4) fL Immature Gran % 0.5 (0-4) % Seg Neutrophils % 82.9 % Lymphocytes % 8.9 % Monocytes % 6.6 % Eosinophils % 0.9 % Basophils % 0.2 % Neutrophils # 5.5 (1.6-8.9) K/mcL Lymphocytes # 0.6 (0.6-4.6) K/mcL Monocytes # 0.4 (0.0-1.3) K/mcL Eosinophils # 0.1 (0.0-0.6) K/mcL Basophils # 0.0 (0.0-0.2) K/mcL Immature Plt Fraction 5.6 (1.1-6.1) % PT 28.0 H (9.4-12.1) Seconds INR 2.5 Sodium 134 L (136-145) mEq/L Potassium 5.1 (3.5-5.1) mEq/L Chloride 104 (98-107) mEq/L Carbon Dioxide 21 L (23-29) mEq/L BUN 48 H (8-23) mg/dL Creatinine 1.74 H (0.70-1.30) mg/dL Est GFR ( Amer) 46 L (> 60) Est GFR (Non-Af Amer) 38 L (> 60) BUN/Creatinine Ratio 28 H (6-26) Glucose 226 H (70-105) mg/dL Calculated Osmolality 298 (280-300) Calcium 8.1 L (8.6-10.3) mg/dL Troponin I 0.08 H* (< 0.04) ng/mL B-Natriuretic Peptide (Less than 100) pg/mL 01/10/19 Range/Units 11:48 WBC (4.3-11.1) K/mcL RBC (4.19-5.50) M/mcL Hgb (12.9-16.9) g/dL Hct (37.5-50.1) % MCV (83.0-100.0) fL MCH (28.0-33.3) pg MCHC (31.6-35.5) g/dL RDW (11.5-14.5) % Plt Count (140-400) K/mcL MPV (9.4-12.4) fL Immature Gran % (0-4) % Seg Neutrophils % % Lymphocytes % % Monocytes % % Eosinophils % % Basophils % % Neutrophils # (1.6-8.9) K/mcL Lymphocytes # (0.6-4.6) K/mcL Monocytes # (0.0-1.3) K/mcL Eosinophils # (0.0-0.6) K/mcL Basophils # (0.0-0.2) K/mcL Immature Plt Fraction (1.1-6.1) % PT (9.4-12.1) Seconds INR Sodium (136-145) mEq/L Potassium (3.5-5.1) mEq/L Chloride (98-107) mEq/L Carbon Dioxide (23-29) mEq/L BUN (8-23) mg/dL Creatinine (0.70-1.30) mg/dL Est GFR ( Amer) (> 60) Est GFR (Non-Af Amer) (> 60) BUN/Creatinine Ratio (6-26) Glucose (70-105) mg/dL Calculated Osmolality (280-300) Calcium (8.6-10.3) mg/dL Troponin I (< 0.04) ng/mL B-Natriuretic Peptide 253 H (Less than 100) pg/mL Attestation Statement - Attestation Attestation: Renee Stringer D.O., examined this patient and my medical decision-making was reviewed with the Resident Physician. I agree with the documented findings, disposition and treatment plan as described except to the extent set forth below. 83-year-old male history of CAD, atrial fibrillation on Coumadin, CHF, renal insufficiency who presents with a complaint of shortness of breath, dizziness and lightheadedness. Patient was admitted last week for similar symptoms. States he felt better but then started developing symptoms again. He reports that he feels lightheaded and dizzy whenever he exerts himself. He also feels more short of breath with it. He is also had worsening lower extremity swelling. He only reports pain whenever he is walking around. No other complaints. General: Alert, no acute distress HENT: Normocephalic, Atraumatic Neck: No JVD Cardiovascular: Regular rate, irregular rhythm. No appreciable murmurs Respiratory: Lungs CTAB. No wheezing/rhonchi Abdominal: Soft, non tender. No peritoneal findings Extremities: 2+ bilateral lower extremity pitting edema Neuro: Alert, Mentating appropriately, No focal deficits Skin: Warm, Dry Plan: EKG, chest x-ray, labs including troponin, BNP, INR and renal function. Family tells me that his renal function worsened over the last admission and his potassium was elevated. ED Procedure Note: EKG interpretation - I agree with the resident physician's documentation and interpretation of the patient's EKG. Ventricularly paced rhythm with a rate of 74 beats per minute. LAD. Does not meet sgarbossa criteria. Imaging with bilateral effusions and cardiomegaly consistent with congestive heart failure. We will begin diuresis and admit. Patient is noted to have an elevated troponin of 0.08 without ischemic findings on his EKG. Patient will be given aspirin.
[2019-01-10 12:16] LABS: Immature Granulocytes % 0.5 % (0-4); Red Cell Distribution Width 14.8 % (11.5-14.5)
[2019-01-10 12:17] LABS: Basophils % 0.2 %; Eosinophils # 0.1 K/mcL (0.0-0.6); Eosinophils % 0.9 %; Hematocrit 28.4 % (37.5-50.1); Hemoglobin 9.2 g/dL (12.9-16.9); Immature Platelets 5.6 % (1.1-6.1); Lymphocytes # 0.6 K/mcL (0.6-4.6); Lymphocytes % 8.9 %; Mean Corpuscular HGB Conc 32.4 g/dL (31.6-35.5); Mean Corpuscular Hemoglobin 28.6 pg (28.0-33.3); Mean Corpuscular Volume 88.2 fL (83.0-100.0); Mean Platelet Volume 11.5 fL (9.4-12.4); Monocytes # 0.4 K/mcL (0.0-1.3); Monocytes % 6.6 %; Neutrophils # 5.5 K/mcL (1.6-8.9); Red Blood Count 3.22 M/mcL (4.19-5.50); Segmented Neutrophils % 82.9 %; White Blood Count 6.6 K/mcL (4.3-11.1)
[2019-01-10 12:18] LABS: Platelet Count 73 K/mcL (140-400)
[2019-01-10 12:21] LABS: INR 2.5
[2019-01-10 12:26] LABS: Calcium 8.1 mg/dL (8.6-10.3); Potassium 5.1 mEq/L (3.5-5.1)
[2019-01-10 12:43] LABS: Troponin I 0.08 ng/mL (< 0.04)
[2019-01-10] MEDS ORDERED: Furosemide 40 MG/4 ML VIAL IVP ONE (12:43)
[2019-01-10] MEDS ORDERED: Aspirin 325 MG TABLET PO ONE (12:58)
--- NOTE | 2019-01-10 14:13 | Internal Med History&Physical ---
<Giuseppe Golden - Last Filed: 01/10/19 17:05> Date of Encounter: 01/10/19 Internal Medicine - H&P: HPI History of present illness: Mr. Burnett is a 83 year old male Internal Medicine - H&P: Meds Finasteride [Proscar] 5 mg PO DAILY 04/27/15 [History] Furosemide [Lasix] 40 mg PO DAILY 04/27/15 [History] Magnesium Oxide [Magnesium] 400 mg PO BID 04/27/15 [History] Omeprazole [PriLOSEC] 20 mg PO DAILY 04/27/15 [History] Simvastatin [Zocor] 40 mg PO HS 04/27/15 [History] Tamsulosin [Flomax] 0.8 mg PO HS 04/27/15 [History] Warfarin [Coumadin] 1 mg PO DAILY 04/27/15 [History] Insulin Glargine,Hum.rec.anlog [Lantus Solostar] 70 unit SQ DAILY 03/18/17 [History] Levothyroxine Sodium [Tirosint] 25 mcg PO QAM 06/28/18 [History] Ergocalciferol (VITAMIN D2) [Vitamin D2] 50,000 unit PO QWEEK 01/03/19 [History] Loratadine [Claritin] 10 mg PO DAILY 01/03/19 [History] Lisinopril 2.5 mg PO DAILY 01/04/19 [History] Metoprolol [Lopressor] 25 mg PO BID #0 01/05/19 [Rx] Allergy/AdvReac Type Severity Reaction Status Date / Time No Known Allergies Allergy Verified 03/18/17 21:11 All Systems PM: A 10-system review of systems was performed and is negative for pertinent findings except as documented above in the HPI. - Constitutional Vitals: Temp Pulse Resp BP Pulse Ox 97.5 F L 61 18 107/68 99 01/10/19 12:59 01/10/19 13:25 01/10/19 15:32 01/10/19 15:32 01/10/19 12:59 Internal Med - H&P Results - Labs CBC & Chem 7: 01/10/19 11:48 01/10/19 11:48 Labs: Short CBC 01/10/19 Range/Units 11:48 WBC 6.6 (4.3-11.1) K/mcL Hgb 9.2 L (12.9-16.9) g/dL Hct 28.4 L (37.5-50.1) % Plt Count 73 L (140-400) K/mcL Neutrophils # 5.5 (1.6-8.9) K/mcL BMP 01/10/19 11:48 Sodium 134 L Potassium 5.1 Chloride 104 Carbon Dioxide 21 L BUN 48 H Creatinine 1.74 H Glucose 226 H Calcium 8.1 L Cardiac Enzymes 01/10/19 Range/Units 11:48 Troponin I 0.08 H* (< 0.04) ng/mL - Impressions ITS Impressions Chest X-Ray 01/10/19 12:06 IMPRESSION: 1. Cardiomegaly with pulmonary edema and pleural effusions compatible with CHF. 2. Moderate left and gwdvk-cd-eggjmoik right pleural effusions. Dense left basilar opacity may represent a combination of atelectasis and infiltrate. Chest CT is recommended to exclude underlying neoplasm. D/ / 01/10/2019 12:10:19 Torito Belle MD / [facility] Interpreting Provider: Torito Belle MD - Time Spent With Patient Total time spent is greater than 50% in coordination of care (as documented) at patient's floor/unit and/or counseling patient: - Attending Attestation I saw evaluated and examined this patient and reviewed objective data including labs and my medical decision-making was reviewed with the Resident Physician. I agree with the documented findings, disposition and treatment plan as described except to any changes set forth below. We independently had arqj-nd-evbb contact with the patient. <Selvin Ewing - Last Filed: 01/10/19 17:50> Date of Encounter: 01/10/19 Time of Encounter: 14:12 Internal Medicine - H&P: HPI Chief complaint: shortness of breath History of present illness: Mr. Burnett is a 83 year old male with a past medical history of atrial fibrillation s/p pacemaker placement on coumadin, CAD s/p IL, DM, HLD, HTN who presented to [facility] ED on 01/10 with chief complaint of exertional dyspnea. Was recently admitted with similar complaints. He states that during the week, he has developed shortness of breath with exertion. He is only able to walk a short distance before because of short of breath. Vital signs on arrival were within normal limits. EKG showed an elevated troponin at 0.08, which appears to be baseline. EKG demonstrates no side effects of ischemia. Patient has creatinine was elevated at 1.74. CXR demonstrated the presence of cardiac megaly with pulmonary edema and pleural effusions. There is also a dense left basilar opacity, infiltrate versus atelectasis. He was given a one-time dose of Lasix and a loading dose of aspirin in the emergency department. During i nterview, patient states that he is feeling somewhat better. Physical exam is significant for bibasilar crackles and +2 pitting edema in the lower extremity bilaterally. No wheezes or rhonchi. He denies active chest pain, palpitations, dizziness, lightheadedness, cough, or sputum production. We will admit for CHF exacerbation. We will start Lasix 40 mg IV daily, and we will give supplemental oxygen and DuoNeb's as needed. We will also obtain a pro-calcitonin to rule out upper respiratory infection. Past Med Surg Social Fam HX - Past Medical History Medical history: atrial fibrillation, cancer, coronary artery disease, diabetes, hyperlipidemia, hypertension, myocardial infarction, other Additional medical history: pacemaker Psychiatric history: no psych history - Past Surgical History Surgical History: orthopedic, other, pacemaker/AICD Additional surgical history: left shoulder. r eye lid - Social History Smoking Status: Former smoker Smokeless Tobacco Status: No Alcohol use: none Drug use: none All Systems PM: A 10-system review of systems was performed and is negative for pertinent findings except as documented above in the HPI. - Constitutional Vitals: Temp Pulse Resp BP Pulse Ox 97.5 F L 61 17 111/67 99 01/10/19 12:59 01/10/19 13:25 01/10/19 13:25 01/10/19 13:25 01/10/19 12:59 Exam: General: Conversant, no acute distress Head: atraumatic, normocephalic Eye: PERRL, EOMI Neck: Supple, trachea midline Respiratory: Diminished breath sounds b/l; bibasilar crackles; no rales or rhonchi Cardiovascular: Irregular rhythm, +S1, +S2; no murmurs, rubs, gallops Abdomen: Soft, nontender Extremities: +2 bilateral lower extremity pitting edema Neurological: No focal deficits Psychiatric: Normal affect, normal mood Skin: Dry, intact Internal Med - H&P Results - Labs CBC & Chem 7: 01/10/19 11:48 01/10/19 11:48 Labs: Short CBC 01/10/19 Range/Units 11:48 WBC 6.6 (4.3-11.1) K/mcL Hgb 9.2 L (12.9-16.9) g/dL Hct 28.4 L (37.5-50.1) % Plt Count 73 L (140-400) K/mcL Neutrophils # 5.5 (1.6-8.9) K/mcL BMP 01/10/19 11:48 Sodium 134 L Potassium 5.1 Chloride 104 Carbon Dioxide 21 L BUN 48 H Creatinine 1.74 H Glucose 226 H Calcium 8.1 L Cardiac Enzymes 01/10/19 Range/Units 11:48 Troponin I 0.08 H* (< 0.04) ng/mL - Impressions ITS Impressions Chest X-Ray 01/10/19 12:06 IMPRESSION: 1. Cardiomegaly with pulmonary edema and pleural effusions compatible with CHF. 2. Moderate left and xobiw-dp-glmsppnf right pleural effusions. Dense left basilar opacity may represent a combination of atelectasis and infiltrate. Chest CT is recommended to exclude underlying neoplasm. D/ / 01/10/2019 12:10:19 Torito Belle MD / [facility] Interpreting Provider: Torito Belle MD - Assessment and Plan (1) CHF exacerbation Current Visit: Yes Status: Acute Assessment and plan: - Patient has documented history of CHF; normally takes 40 mg Lasix by mouth daily at home - Ports compliance with his home medications - TTE on 01/04/19 demonstrated ejection fraction 60%, left concentric ventricular hypertrophy - CXR on arrival demonstrated cardiomegaly with pulmonary edema and pleural effusions, dense left basilar opacity; may represent atelectasis/infiltrate Plan: - We will initiate Lasix 40 mg IV daily - Daily weights, strict intake and output, fluid restriction - Will obtain pro-calcitonin - Hold off on antibiotics for the time being - Continue supplemental oxygen as necessary - DuoNebs as needed - Repeat am labs Qualifiers: Qualified Code(s): I50.9 - Heart failure, unspecified (2) Elevated troponin Current Visit: Yes Status: Acute Assessment and plan: - Presented with an elevated troponin at 0.08 - Appears to have elevated troponin at baseline per review of prior records - Chronic kidney disease may be a contributing factor - Denies chest pain, palpitations - EKG showed no ischemic changes - Received loading dose of aspirin in the emergency department - Will trend troponins 3 (3) Acute kidney injury Current Visit: Yes Status: Acute Assessment and plan: - Creatinine on arrival was 1.74 - He has a known history of chronic kidney disease stage III and follows with Dr. Mendes Plan: - Renally dose medications, avoid nephrotoxins - Holding off on fluids due to evidence of volume overload (4) Atrial fibrillation Current Visit: Yes Status: Acute Assessment and plan: - Known history of atrial fibrillation - Takes both Coumadin and metoprolol at home - Continue home medications Qualifiers: Qualified Code(s): I48.91 - Unspecified atrial fibrillation (5) Diabetes Current Visit: No Status: Chronic Assessment and plan: - Low-dose sliding scale insulin Qualifiers: Diabetes mellitus type: type 2 Diabetes mellitus moth exterminator insulin use: with moth exterminator use Diabetes mellitus complication status: with hyperglycemia Qualified Code(s): E11.65 - Type 2 diabetes mellitus with hyperglycemia; Z79.4 - moth exterminator (current) use of insulin (6) DVT prophylaxis Current Visit: No Status: Acute Assessment and plan: - Continue home Coumadin - Time Spent With Patient Total time spent is greater than 50% in coordination of care (as documented) at patient's floor/unit and/or counseling patient:
[2019-01-10] MEDS ORDERED: Naloxone 0.4 MG/ML INJ IVP PRN (15:06)
[2019-01-10] MEDS ORDERED: Dextrose Gel 15 GM/37.5 ML TUBE PO PRN ×2 (15:20)
[2019-01-10] MEDS ORDERED: *HR* Dextrose 50 % in Water (Syg) 50 ML SYRINGE IVP PRN (15:20)
[2019-01-10] MEDS ORDERED: D5% in Water 1,000 ML IVC PRN (15:20)
[2019-01-10] MEDS: Insulin LISPRO 300 UNITS/3 ML VIAL SQ SCH (18:05)
[2019-01-10] MEDS ORDERED: *HR* Metoprolol 5 MG/5 ML VIAL IVP PRN (18:21)
--- NOTE | 2019-01-10 22:02 | Electrocardiograph Report ---
[place] [id number] Test Date: 2019-01-10 Pat Name: Jass Burnett Department: EXAM2 Room: 3B46 Gender: M Collections Rep: : 1935 Requested By: Fidel Stringer Order Number: [id number] Reading MD: Zo Staley Measurements Intervals [place] Rate: 74 P: 0 AR: 120 QRS: 106 QRSD: 130 T: -86 QT: 484 QTc: 586 Interpretive Statements Ventricular-paced complexes No further analysis attempted due to paced rhythm Electronically Signed On 01-10-2019 22:00:48 EDT by Zo Staley
[2019-01-10] MEDS: *HR* Warfarin 1 MG TABLET PO SCH (23:18)
[2019-01-11 05:22] LABS: INR 2.6; Prothrombin Time 29.2 Seconds (9.4-12.1)
[2019-01-11 05:30] LABS: Basophils % 0.2 %
[2019-01-11 05:32] LABS: Eosinophils # 0.1 K/mcL (0.0-0.6); Eosinophils % 1.6 %; Hematocrit 27.8 % (37.5-50.1); Hemoglobin 8.9 g/dL (12.9-16.9); Immature Platelets 4.3 % (1.1-6.1); Lymphocytes # 0.6 K/mcL (0.6-4.6); Lymphocytes % 11.7 %; Mean Corpuscular Hemoglobin 28.6 pg (28.0-33.3); Mean Corpuscular Volume 89.4 fL (83.0-100.0); Mean Platelet Volume 10.6 fL (9.4-12.4); Monocytes # 0.4 K/mcL (0.0-1.3); Monocytes % 7.6 %; Red Blood Count 3.11 M/mcL (4.19-5.50); Segmented Neutrophils % 77.9 %; White Blood Count 5.2 K/mcL (4.3-11.1)
[2019-01-11 05:36] LABS: Neutrophils # 4.1 K/mcL (1.6-8.9); Platelet Count 74 K/mcL (140-400)
[2019-01-11 05:37] LABS: Calcium 8.3 mg/dL (8.6-10.3); Magnesium 2.8 mg/dL (1.6-2.6); Phosphorous 3.4 mg/dL (2.7-4.5); Potassium 4.8 mEq/L (3.5-5.1)
[2019-01-11] MEDS: Levothyroxine 25 MCG TABLET PO SCH (08:49)
[2019-01-11] MEDS: Insulin LISPRO 300 UNITS/3 ML VIAL SQ SCH ×3 (08:50→17:42)
[2019-01-11] MEDS ORDERED: Furosemide 40 MG/4 ML VIAL IVP SCH (09:00)
[2019-01-11] MEDS: *HR* Warfarin 1 MG TABLET PO SCH (17:43)
--- NOTE | 2019-01-11 18:11 | Internal Med Progress Note ---
Hospitalist Progress Note - Encounter Date of Encounter: 01/11/19 Time of Encounter: 18:09 - Subjective Interval History: Patient breathing better. Denies chest pain. No orthopnea. - Exam Vitals: Temp Pulse Resp BP Pulse Ox 97.8 F 67 16 131/74 97 01/11/19 11:12 01/11/19 11:12 01/11/19 11:12 01/11/19 11:12 01/11/19 11:12 Exam: General: Conversant, no acute distress Head: atraumatic, normocephalic Eye: PERRL, EOMI Neck: Supple, trachea midline Respiratory: Diminished breath sounds b/l; bibasilar crackles; no rales or rhonchi, improved air exchange since yesterday. Cardiovascular: Irregular rhythm, +S1, +S2; no murmurs, rubs, gallops Abdomen: Soft, nontender Extremities: +2 bilateral lower extremity pitting edema Neurological: No focal deficits Psychiatric: Normal affect, normal mood Skin: Dry, intact - Assessment and Plan (1) CHF exacerbation Current Visit: Yes Status: Acute Assessment and Plan: Continue Lasix, will decrease dose today and recheck renal function in AM. (2) Atrial fibrillation Current Visit: No Status: Acute (3) Diabetes Current Visit: No Status: Chronic - Time Spent with Patient Total time spent is greater than 50% in coordination of care (as documented) at patient's floor/unit and/or counseling patient: Internal Medicine: Result - Labs CBC & Chem 7: 01/11/19 03:26 01/11/19 03:26 Labs: Short CBC 01/11/19 Range/Units 03:26 WBC 5.2 (4.3-11.1) K/mcL Hgb 8.9 L (12.9-16.9) g/dL Hct 27.8 L (37.5-50.1) % Plt Count 74 L (140-400) K/mcL Neutrophils # 4.1 (1.6-8.9) K/mcL BMP 01/11/19 03:26 Sodium 135 L Potassium 4.8 Chloride 106 Carbon Dioxide 21 L BUN 52 H Creatinine 1.84 H Glucose 201 H Calcium 8.3 L Cardiac Enzymes 01/10/19 01/11/19 Range/Units 21:21 03:26 Troponin I 0.08 H* 0.09 H* (< 0.04) ng/mL - ABG Interpretation ABG results: PT/INR, D-dimer PT 29.2 Seconds (9.4-12.1) H 01/11/19 03:26 - Impressions Impressions Chest X-Ray 01/10/19 12:06 IMPRESSION: 1. Cardiomegaly with pulmonary edema and pleural effusions compatible with CHF. 2. Moderate left and darwc-zz-pvtfzmad right pleural effusions. Dense left basilar opacity may represent a combination of atelectasis and infiltrate. Chest CT is recommended to exclude underlying neoplasm. D/ / 01/10/2019 12:10:19 Torito Belle MD / [facility] Interpreting Provider: Torito Belle MD Consult Discharge Plan - Plan Referrals: Farhad Rodas, POLISH MAKER [Primary Care Provider] - (1) CHF exacerbation Qualifiers: Heart failure type: diastolic Qualified Code(s): I50.33 - Acute on chronic diastolic (congestive) heart failure (2) Atrial fibrillation Qualifiers: Atrial fibrillation type: persistent Qualified Code(s): I48.1 - Persistent atrial fibrillation (3) Diabetes Qualifiers: Diabetes mellitus type: type 2 Diabetes mellitus detention insulin use: with rat exterminator use Diabetes mellitus complication status: with hyperglycemia Qualified Code(s): E11.65 - Type 2 diabetes mellitus with hyperglycemia; Z79.4 - ferry terminal agent (current) use of insulin
[2019-01-12] MEDS: Levothyroxine 25 MCG TABLET PO SCH (06:07)
[2019-01-12 07:58] LABS: Hematocrit 28.3 % (37.5-50.1); Hemoglobin 9.2 g/dL (12.9-16.9); Mean Corpuscular HGB Conc 32.5 g/dL (31.6-35.5)
[2019-01-12 08:00] LABS: Basophils % 0.3 %; Eosinophils # 0.1 K/mcL (0.0-0.6); Eosinophils % 1.5 %; Immature Granulocytes % 0.6 % (0-4); Immature Platelets 5.1 % (1.1-6.1); Lymphocytes # 0.9 K/mcL (0.6-4.6); Lymphocytes % 12.8 %; Mean Corpuscular Hemoglobin 28.7 pg (28.0-33.3); Mean Corpuscular Volume 88.2 fL (83.0-100.0); Mean Platelet Volume 11.1 fL (9.4-12.4); Monocytes # 0.5 K/mcL (0.0-1.3); Monocytes % 7.1 %; Neutrophils # 5.2 K/mcL (1.6-8.9); Red Blood Count 3.21 M/mcL (4.19-5.50); Segmented Neutrophils % 77.7 %; White Blood Count 6.7 K/mcL (4.3-11.1)
[2019-01-12 08:01] LABS: Platelet Count 67 K/mcL (140-400)
[2019-01-12 08:19] LABS: Calcium 8.4 mg/dL (8.6-10.3); Potassium 5.1 mEq/L (3.5-5.1)
[2019-01-12] MEDS: Furosemide 20 MG/2 ML VIAL IVP SCH (09:51)
[2019-01-12] MEDS: Insulin LISPRO 300 UNITS/3 ML VIAL SQ SCH ×3 (09:52→18:26)
[2019-01-12] MEDS ORDERED: Furosemide 20 MG/2 ML VIAL IVP ONE (11:47)
--- NOTE | 2019-01-12 11:50 | Internal Med Progress Note ---
Hospitalist Progress Note - Encounter Date of Encounter: 01/12/19 Time of Encounter: 11:50 - Subjective Interval History: States edema slightly worse in lower extremities today, SOB is much improved. - Exam Vitals: Temp Pulse Resp BP Pulse Ox 97.6 F 61 14 109/65 95 01/12/19 06:52 01/12/19 06:52 01/12/19 06:52 01/12/19 06:52 01/12/19 06:52 Exam: General: Conversant, no acute distress Head: atraumatic, normocephalic Eye: PERRL, EOMI Neck: Supple, trachea midline Respiratory: Diminished breath sounds b/l; bibasilar crackles; no rales or rhonchi, improved air exchange since yesterday. Cardiovascular: Irregular rhythm, +S1, +S2; no murmurs, rubs, gallops Abdomen: Soft, nontender Extremities: +2 bilateral lower extremity pitting edema, slightly worse pitting than yesterday. Neurological: No focal deficits Psychiatric: Normal affect, normal mood Skin: Dry, intact - Assessment and Plan (1) CHF exacerbation Current Visit: Yes Status: Acute Assessment and Plan: Continue Lasix, Received 20 mg IV earlier today, but will need additional 20 mg IV now. Anticipate 1-2 more days of IV diuresis. Fluid restriction. (2) Atrial fibrillation Current Visit: No Status: Acute Assessment and Plan: Metoprolol Warfarin (3) Diabetes Current Visit: No Status: Chronic - Time Spent with Patient Total time spent is greater than 50% in coordination of care (as documented) at patient's floor/unit and/or counseling patient: Internal Medicine: Result - Labs CBC & Chem 7: 01/12/19 07:32 01/12/19 07:32 Labs: Short CBC 01/12/19 Range/Units 07:32 WBC 6.7 (4.3-11.1) K/mcL Hgb 9.2 L (12.9-16.9) g/dL Hct 28.3 L (37.5-50.1) % Plt Count 67 L (140-400) K/mcL Neutrophils # 5.2 (1.6-8.9) K/mcL BMP 01/12/19 07:32 Sodium 136 Potassium 5.1 Chloride 107 Carbon Dioxide 21 L BUN 48 H Creatinine 1.85 H Glucose 176 H Calcium 8.4 L - ABG Interpretation ABG results: PT/INR, D-dimer PT 29.2 Seconds (9.4-12.1) H 01/11/19 03:26 Consult Discharge Plan - Plan Referrals: Farhad Rodas, WAISTBAND SETTER LOCKSTITCH [Primary Care Provider] - (1) CHF exacerbation Qualifiers: Heart failure type: diastolic Qualified Code(s): I50.33 - Acute on chronic diastolic (congestive) heart failure (2) Atrial fibrillation Qualifiers: Atrial fibrillation type: persistent Qualified Code(s): I48.1 - Persistent atrial fibrillation (3) Diabetes Qualifiers: Diabetes mellitus type: type 2 Diabetes mellitus closer on insulin use: with senior living use Diabetes mellitus complication status: with hyperglycemia Qualified Code(s): E11.65 - Type 2 diabetes mellitus with hyperglycemia; Z79.4 - [facility] (current) use of insulin
[2019-01-12] MEDS: *HR* Warfarin 1 MG TABLET PO SCH (18:31)
[2019-01-13 03:56] LABS: Immature Granulocytes % 0.5 % (0-4); Red Cell Distribution Width 14.9 % (11.5-14.5)
[2019-01-13 03:58] LABS: Basophils % 0.3 %; Eosinophils # 0.1 K/mcL (0.0-0.6); Eosinophils % 1.4 %; Hematocrit 29.2 % (37.5-50.1); Hemoglobin 9.1 g/dL (12.9-16.9); Immature Platelets 4.5 % (1.1-6.1); Lymphocytes # 0.7 K/mcL (0.6-4.6); Mean Corpuscular HGB Conc 31.2 g/dL (31.6-35.5); Mean Corpuscular Hemoglobin 28.1 pg (28.0-33.3); Mean Corpuscular Volume 90.1 fL (83.0-100.0); Mean Platelet Volume 11.2 fL (9.4-12.4); Monocytes # 0.5 K/mcL (0.0-1.3); Monocytes % 7.3 %; Red Blood Count 3.24 M/mcL (4.19-5.50); Segmented Neutrophils % 79.5 %; White Blood Count 6.3 K/mcL (4.3-11.1)
[2019-01-13 04:00] LABS: Platelet Count 75 K/mcL (140-400)
[2019-01-13 04:15] LABS: Calcium 8.5 mg/dL (8.6-10.3); Potassium 4.6 mEq/L (3.5-5.1)
[2019-01-13] MEDS: Levothyroxine 25 MCG TABLET PO SCH (06:10)
[2019-01-13] MEDS: Insulin LISPRO 300 UNITS/3 ML VIAL SQ SCH ×3 (08:25→17:28)
[2019-01-13] MEDS: Furosemide 20 MG/2 ML VIAL IVP SCH ×2 (11:14→11:38)
--- NOTE | 2019-01-13 12:33 | Internal Med Progress Note ---
Hospitalist Progress Note - Encounter Date of Encounter: 01/13/19 Time of Encounter: 12:30 - Subjective Interval History: - Exam Vitals: Temp Pulse Resp BP Pulse Ox 98.0 F 60 16 95/56 98 01/13/19 11:43 01/13/19 11:43 01/13/19 11:43 01/13/19 11:43 01/13/19 11:43 Exam: General: Conversant, no acute distress Head: atraumatic, normocephalic Eye: PERRL, EOMI Neck: Supple, trachea midline Respiratory: Diminished breath sounds b/l; bibasilar crackles; no rales or rhonchi, improved air exchange since yesterday. Cardiovascular: Irregular rhythm, +S1, +S2; no murmurs, rubs, gallops Abdomen: Soft, nontender Extremities: +2 bilateral lower extremity pitting edema, slightly worse pitting than yesterday. Neurological: No focal deficits Psychiatric: Normal affect, normal mood Skin: Dry, intact - Assessment and Plan (1) CHF exacerbation Current Visit: Yes Status: Acute Assessment and Plan: Not much improvement today despite IV Lasix 20 mg earlier. Lost IV access later in the day today. Will try PO Lasix additional dose later today. Dispo: Anticipate 1-2 more days diuresis, IV ideal if IV access can be reestablished. Fluid restriction. BP lower/normal and will be monitored while being diuresed. (2) Atrial fibrillation Current Visit: No Status: Acute Assessment and Plan: Metoprolol Warfarin (3) Diabetes Current Visit: No Status: Chronic - Time Spent with Patient Total time spent is greater than 50% in coordination of care (as documented) at patient's floor/unit and/or counseling patient: Internal Medicine: Result - Labs CBC & Chem 7: 01/13/19 02:54 01/13/19 02:54 Labs: Short CBC 01/13/19 Range/Units 02:54 WBC 6.3 (4.3-11.1) K/mcL Hgb 9.1 L (12.9-16.9) g/dL Hct 29.2 L (37.5-50.1) % Plt Count 75 L (140-400) K/mcL Neutrophils # 5.0 (1.6-8.9) K/mcL BMP 01/13/19 02:54 Sodium 135 L Potassium 4.6 Chloride 105 Carbon Dioxide 23 BUN 55 H Creatinine 1.79 H Glucose 175 H Calcium 8.5 L - ABG Interpretation ABG results: PT/INR, D-dimer PT 29.2 Seconds (9.4-12.1) H 01/11/19 03:26 Consult Discharge Plan - Plan Referrals: Farhad Rodas, NUDE MODEL [Primary Care Provider] - (1) CHF exacerbation Qualifiers: Heart failure type: diastolic Qualified Code(s): I50.33 - Acute on chronic diastolic (congestive) heart failure (2) Atrial fibrillation Qualifiers: Atrial fibrillation type: persistent Qualified Code(s): I48.1 - Persistent atrial fibrillation (3) Diabetes Qualifiers: Diabetes mellitus type: type 2 Diabetes mellitus fdc insulin use: with fdc use Diabetes mellitus complication status: with hyperglycemia Qualified Code(s): E11.65 - Type 2 diabetes mellitus with hyperglycemia; Z79.4 - group home (current) use of insulin
[2019-01-13] MEDS ORDERED: Furosemide 40 MG TABLET PO ONE (14:00)
[2019-01-13] MEDS ORDERED: Furosemide 20 MG TABLET PO ONE (14:00)
[2019-01-13] MEDS ORDERED: metOLazone 2.5 MG TABLET PO ONE (14:00)
[2019-01-13] MEDS: *HR* Warfarin 1 MG TABLET PO SCH (17:28)
[2019-01-14 01:34] LABS: Hematocrit 28.5 % (37.5-50.1); Mean Platelet Volume 11.4 fL (9.4-12.4)
[2019-01-14 01:35] LABS: Basophils % 0.2 %; Eosinophils # 0.1 K/mcL (0.0-0.6); Eosinophils % 1.5 %; Hemoglobin 8.9 g/dL (12.9-16.9); Immature Granulocytes % 0.5 % (0-4); Immature Platelets 5.1 % (1.1-6.1); Lymphocytes # 0.6 K/mcL (0.6-4.6); Lymphocytes % 9.8 %; Mean Corpuscular HGB Conc 31.2 g/dL (31.6-35.5); Mean Corpuscular Hemoglobin 28.2 pg (28.0-33.3); Mean Corpuscular Volume 90.2 fL (83.0-100.0); Monocytes # 0.4 K/mcL (0.0-1.3); Monocytes % 5.9 %; Red Blood Count 3.16 M/mcL (4.19-5.50); Segmented Neutrophils % 82.1 %; White Blood Count 6.1 K/mcL (4.3-11.1)
[2019-01-14 01:40] LABS: Platelet Count 75 K/mcL (140-400)
[2019-01-14 01:52] LABS: Calcium 8.5 mg/dL (8.6-10.3); Potassium 4.5 mEq/L (3.5-5.1)
[2019-01-14 01:55] LABS: INR 3.1; Prothrombin Time 35.6 Seconds (9.4-12.1)
[2019-01-14] MEDS: Levothyroxine 25 MCG TABLET PO SCH (05:13)
--- NOTE | 2019-01-14 08:42 | Internal Med Progress Note ---
Hospitalist Progress Note - Encounter Date of Encounter: 01/14/19 - Exam Vitals: Temp Pulse Resp BP Pulse Ox 97.4 F L 63 16 100/64 96 01/14/19 07:30 01/14/19 07:30 01/14/19 07:30 01/14/19 07:30 01/14/19 07:30 Exam: GENERAL: EYES: HENT: NECK: CV: RESPIRATORY: ABDOMEN: EXTREMITIES: SKIN: - Time Spent with Patient Total time spent is greater than 50% in coordination of care (as documented) at patient's floor/unit and/or counseling patient: Internal Medicine: Result - Labs CBC & Chem 7: 01/14/19 00:14 01/14/19 00:14 Labs: Short CBC 01/14/19 Range/Units 00:14 WBC 6.1 (4.3-11.1) K/mcL Hgb 8.9 L (12.9-16.9) g/dL Hct 28.5 L (37.5-50.1) % Plt Count 75 L (140-400) K/mcL Neutrophils # 5.0 (1.6-8.9) K/mcL BMP 01/14/19 00:14 Sodium 138 Potassium 4.5 Chloride 104 Carbon Dioxide 23 BUN 58 H Creatinine 1.97 H Glucose 154 H Calcium 8.5 L - ABG Interpretation ABG results: PT/INR, D-dimer PT 35.6 Seconds (9.4-12.1) H 01/14/19 00:14 Consult Discharge Plan - Plan Instructions: Meal Planning with Diabetes Exchanges (DC), Low Sodium Diet (DC) Referrals: Farhad Rodas SLOT SUPERVISOR [Primary Care Provider] -
[2019-01-14] MEDS: Insulin LISPRO 300 UNITS/3 ML VIAL SQ SCH ×3 (09:06→18:03)
--- NOTE | 2019-01-14 10:24 | Internal Med Progress Note ---
<Nidhi Love - Last Filed: 01/14/19 10:17> Hospitalist Progress Note - Encounter Date of Encounter: 01/14/19 Time of Encounter: 10:00 - Subjective Interval History: Mr. Burnett was examined sitting in a chair in his room. He looked much improved from time of admission. He states that he is breathing much better adn able to walk around his room. The LE edema is improved but not to baseline. - Exam Vitals: Temp Pulse Resp BP Pulse Ox 97.4 F L 63 16 100/64 96 01/14/19 07:30 01/14/19 07:30 01/14/19 07:30 01/14/19 07:30 01/14/19 07:30 Exam: General: pleasant, no acute distress Head: atraumatic, normocephalic Eye: PERRLA, EOMI Neck: Supple, trachea midline Respiratory: Diminished breath sounds b/l; bibasilar crackles; no rales or rh onchi, improved air exchange since yesterday. Cardiovascular: Irregular rhythm, +S1, +S2; no murmurs, rubs, gallops Abdomen: Soft, nontender Extremities: +2 bilateral lower extremity pitting edema. Neurological: No focal deficits Psychiatric: Normal affect, normal mood Skin: Dry, intact - Assessment and Plan (1) CHF exacerbation Current Visit: Yes Status: Acute Assessment and Plan: Dyspnea much improved since admission. LE edema is more reluctant to improve. Patient started on PO lasix yesterday 40mg/ day. Anticipate 1-2 more days diuresis, IV ideal if IV access can be reestablished. Fluid restriction. BP lower/normal and will be monitored while being diuresed. (2) Atrial fibrillation Current Visit: Yes Status: Acute Assessment and Plan: Continue metoprolol and warfarin for management. Afib is stable. (3) Diabetes Current Visit: No Status: Chronic Assessment and Plan: Continue sliding scale. - Time Spent with Patient Total time spent is greater than 50% in coordination of care (as documented) at patient's floor/unit and/or counseling patient: Internal Medicine: Result - Labs CBC & Chem 7: 01/14/19 00:14 01/14/19 00:14 Labs: Short CBC 01/14/19 Range/Units 00:14 WBC 6.1 (4.3-11.1) K/mcL Hgb 8.9 L (12.9-16.9) g/dL Hct 28.5 L (37.5-50.1) % Plt Count 75 L (140-400) K/mcL Neutrophils # 5.0 (1.6-8.9) K/mcL BMP 01/14/19 00:14 Sodium 138 Potassium 4.5 Chloride 104 Carbon Dioxide 23 BUN 58 H Creatinine 1.97 H Glucose 154 H Calcium 8.5 L - ABG Interpretation ABG results: PT/INR, D-dimer PT 35.6 Seconds (9.4-12.1) H 01/14/19 00:14 Consult Discharge Plan - Plan Instructions: Meal Planning with Diabetes Exchanges (DC), Low Sodium Diet (DC) Referrals: Farhad Rodas CNP [Primary Care Provider] - <Giuseppe Golden - Last Filed: 01/14/19 19:54> Hospitalist Progress Note - Encounter Date of Encounter: 01/14/19 - Exam Vitals: Temp Pulse Resp BP Pulse Ox 97.8 F 63 16 93/61 97 01/14/19 17:04 01/14/19 17:04 01/14/19 17:04 01/14/19 17:04 01/14/19 17:04 - Assessment and Plan (1) CHF exacerbation Current Visit: Yes Status: Acute (2) Atrial fibrillation Current Visit: No Status: Acute (3) Diabetes Current Visit: No Status: Chronic - Time Spent with Patient Total time spent is greater than 50% in coordination of care (as documented) at patient's floor/unit and/or counseling patient: Internal Medicine: Result - Labs CBC & Chem 7: 01/14/19 00:14 01/14/19 00:14 Labs: Short CBC 01/14/19 Range/Units 00:14 WBC 6.1 (4.3-11.1) K/mcL Hgb 8.9 L (12.9-16.9) g/dL Hct 28.5 L (37.5-50.1) % Plt Count 75 L (140-400) K/mcL Neutrophils # 5.0 (1.6-8.9) K/mcL BMP 01/14/19 00:14 Sodium 138 Potassium 4.5 Chloride 104 Carbon Dioxide 23 BUN 58 H Creatinine 1.97 H Glucose 154 H Calcium 8.5 L - ABG Interpretation ABG results: PT/INR, D-dimer PT 35.6 Seconds (9.4-12.1) H 01/14/19 00:14 - Impressions Impressions Chest X-Ray 01/14/19 12:52 IMPRESSION: 1. Persistently enlarged cardiac silhouette with bilateral pleural effusions, left greater than right. 2. Prominence of the pulmonary vasculature with bibasilar opacification. D/ / Paulino Rocha MD / Paulino Rocha MD Interpreting Provider: Paulino Rocha MD - Attending Attestation I saw evaluated and examined this patient and reviewed objective data including labs and my medical decision-making was reviewed with the Resident Physician. I agree with the documented findings, disposition and treatment plan as described except to any changes set forth below. Patient had episode of shortness of breath with exertion, edema not improved, not at dry weight. Will need re establishing IV access and resume IV Lasix. <Nidhi Love - Last Filed: 01/14/19 10:17> (1) CHF exacerbation Qualifiers: Heart failure type: diastolic Qualified Code(s): I50.33 - Acute on chronic diastolic (congestive) heart failure (2) Atrial fibrillation Qualifiers: Qualified Code(s): I48.91 - Unspecified atrial fibrillation (3) Diabetes Qualifiers: Diabetes mellitus type: type 2 Diabetes mellitus intensive care specialist insulin use: with intensive care specialist use Diabetes mellitus complication status: with hyperglycemia Qualified Code(s): E11.65 - Type 2 diabetes mellitus with hyperglycemia; Z79.4 - managing manager (current) use of insulin <Giuseppe Golden - Last Filed: 01/14/19 19:54> (1) CHF exacerbation Qualifiers: Heart failure type: diastolic Qualified Code(s): I50.33 - Acute on chronic diastolic (congestive) heart failure (2) Atrial fibrillation Qualifiers: Atrial fibrillation type: persistent Qualified Code(s): I48.1 - Persistent atrial fibrillation (3) Diabetes Qualifiers: Diabetes mellitus type: type 2 Diabetes mellitus intensive care specialist insulin use: with intensive care specialist use Diabetes mellitus complication status: with hyperglycemia Qualified Code(s): E11.65 - Type 2 diabetes mellitus with hyperglycemia; Z79.4 - managing manager (current) use of insulin
[2019-01-14] MEDS ORDERED: Furosemide 20 MG/2 ML VIAL IVP STA (14:37)
[2019-01-14] MEDS: *HR* Warfarin 1 MG TABLET PO SCH (18:03)
[2019-01-15 05:12] LABS: Basophils % 0.2 %; Hematocrit 25.8 % (37.5-50.1); Red Cell Distribution Width 14.9 % (11.5-14.5)
[2019-01-15 05:14] LABS: Eosinophils # 0.1 K/mcL (0.0-0.6); Hemoglobin 8.4 g/dL (12.9-16.9); Immature Granulocytes % 0.5 % (0-4); Immature Platelets 4.5 % (1.1-6.1); Lymphocytes # 0.6 K/mcL (0.6-4.6); Lymphocytes % 14.2 %; Mean Corpuscular HGB Conc 32.6 g/dL (31.6-35.5); Mean Corpuscular Hemoglobin 28.9 pg (28.0-33.3); Mean Corpuscular Volume 88.7 fL (83.0-100.0); Mean Platelet Volume 11.1 fL (9.4-12.4); Monocytes # 0.3 K/mcL (0.0-1.3); Monocytes % 7.6 %; Neutrophils # 3.1 K/mcL (1.6-8.9); Red Blood Count 2.91 M/mcL (4.19-5.50); Segmented Neutrophils % 75.5 %; White Blood Count 4.1 K/mcL (4.3-11.1)
[2019-01-15 05:19] LABS: Platelet Count 60 K/mcL (140-400)
[2019-01-15 05:32] LABS: Calcium 8.3 mg/dL (8.6-10.3); Potassium 3.9 mEq/L (3.5-5.1)
[2019-01-15] MEDS: Levothyroxine 25 MCG TABLET PO SCH (05:52)
--- NOTE | 2019-01-15 08:44 | Internal Med Progress Note ---
<Nidhi Love - Last Filed: 01/15/19 16:29> Hospitalist Progress Note - Encounter Date of Encounter: 01/15/19 Time of Encounter: 08:39 - Subjective Interval History: Mr. Burnett was examined at bedside this morning. He looked much improved from time of admission. He states that he is breathing much better adn able to walk around his room. He said that he was able to walk up and down the hallway, he was a bit short of breath by the time that he returned to his room but that is normal The LE edema is improved but not gone. We tried to do a 6 minute walk trial with mr. Burnett and about five minutes in he could no longer continue and desaturated significantly and could not finish on 2L oxygen - Exam Vitals: Temp Pulse Resp BP Pulse Ox 97.5 F L 64 15 99/63 96 01/15/19 07:28 01/15/19 07:28 01/15/19 07:28 01/15/19 07:28 01/15/19 07:28 Exam: General: pleasant, no acute distress Head: atraumatic, normocephalic Eye: PERRLA, EOMI Neck: Supple, trachea midline Respiratory: Diminished breath sounds b/l; bibasilar crackles; no rales or rhonchi, improved air exchange since yesterday. Cardiovascular: Irregular rhythm, +S1, +S2; no murmurs, rubs, gallops Abdomen: Soft, nontender Extremities: +2 bilateral lower extremity pitting edema. Neurological: No focal deficits Psychiatric: Normal affect, normal mood Skin: Dry, intact - Assessment and Plan (1) CHF exacerbation Current Visit: Yes Status: Acute Assessment and Plan: Dyspnea much improved since admission. LE edema is improved. Patient started on PO lasix yesterday 40mg/ day. Anticipated discharge today BP lower/normal and will be monitored while being diuresed. (2) Atrial fibrillation Current Visit: Yes Status: Acute Assessment and Plan: Continue metoprolol and warfarin for management. Afib is stable.[facility] to [facility]. (3) Diabetes Current Visit: No Status: Chronic Assessment and Plan: Continue sliding scale - Time Spent with Patient Total time spent is greater than 50% in coordination of care (as documented) at patient's floor/unit and/or counseling patient: Internal Medicine: Result - Labs CBC & Chem 7: 10/01/19 04:58 01/15/19 04:58 Labs: Short CBC 01/15/19 Range/Units 04:58 WBC 4.1 L (4.3-11.1) K/mcL Hgb 8.4 L (12.9-16.9) g/dL Hct 25.8 L (37.5-50.1) % Plt Count 60 L (140-400) K/mcL Neutrophils # 3.1 (1.6-8.9) K/mcL BMP 01/15/19 04:58 Sodium 138 Potassium 3.9 Chloride 105 Carbon Dioxide 21 L BUN 59 H Creatinine 1.80 H Glucose 187 H Calcium 8.3 L - ABG Interpretation ABG results: PT/INR, D-dimer PT 35.6 Seconds (9.4-12.1) H 01/14/19 00:14 - Impressions Impressions Chest X-Ray 01/14/19 12:52 IMPRESSION: 1. Persistently enlarged cardiac silhouette with bilateral pleural effusions, left greater than right. 2. Prominence of the pulmonary vasculature with bibasilar opacification. D/ / Paulino Rocha MD / Paulino Rocha MD Interpreting Provider: Paulino Rocha MD Consult Discharge Plan - Plan Instructions: Meal Planning with Diabetes Exchanges (DC), Low Sodium Diet (DC) Referrals: Farhad Rodas PADDER CUSHION [Primary Care Provider] - <Giuseppe Golden - Last Filed: 01/15/19 20:48> Hospitalist Progress Note - Encounter Date of Encounter: 01/15/19 - Exam Vitals: Temp Pulse Resp BP Pulse Ox 98.9 F 63 16 99/62 100 01/15/19 18:45 01/15/19 18:45 01/15/19 18:45 01/15/19 18:45 01/15/19 18:45 - Assessment and Plan (1) CHF exacerbation Current Visit: Yes Status: Acute (2) Atrial fibrillation Current Visit: No Status: Acute (3) Diabetes Current Visit: No Status: Chronic - Time Spent with Patient Total time spent is greater than 50% in coordination of care (as documented) at patient's floor/unit and/or counseling patient: Internal Medicine: Result - Labs CBC & Chem 7: 01/15/19 04:58 01/15/19 04:58 Labs: Short CBC 01/15/19 Range/Units 04:58 WBC 4.1 L (4.3-11.1) K/mcL Hgb 8.4 L (12.9-16.9) g/dL Hct 25.8 L (37.5-50.1) % Plt Count 60 L (140-400) K/mcL Neutrophils # 3.1 (1.6-8.9) K/mcL BMP 01/15/19 04:58 Sodium 138 Potassium 3.9 Chloride 105 Carbon Dioxide 21 L BUN 59 H Creatinine 1.80 H Glucose 187 H Calcium 8.3 L - ABG Interpretation ABG results: PT/INR, D-dimer PT 44.3 Seconds (9.4-12.1) H* 01/15/19 10:06 - Attending Attestation I saw evaluated and examined this patient and reviewed objective data including labs and my medical decision-making was reviewed with the Resident Physician. I agree with the documented findings, disposition and treatment plan as described except to any changes set forth below. We independently had [id number] contact with the patient. Patient was doing well on exam at bedside. No complaints. Edema of lower extremities about the same since yesterday. Lungs: fine rales in lung keyes, fair air exchange throughout. VS: reviewed, BP on lower/normal limits. Patient was ambulating in hallway and desaturated to low 80s. He was placed on 2 L NC and was still SOB and O2 sats remained low. Patient will need additional diuresis but difficult since BP on lower end. 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 insulin use: with jail use Diabetes mellitus complication status: with hyperglycemia Qualified Code(s): E11.65 - Type 2 diabetes mellitus with hyperglycemia; Z79.4 - nursing home (current) use of insulin <Giuseppe Golden - Last Filed: 01/15/19 20:48> (1) CHF exacerbation Qualifiers: Heart failure type: diastolic Qualified Code(s): I50.33 - Acute on chronic diastolic (congestive) heart failure (2) Atrial fibrillation Qualifiers: Atrial fibrillation type: persistent (3) Diabetes Qualifiers: Diabetes mellitus type: type 2 Diabetes mellitus regional intermodal truck driver insulin use: with jail use Diabetes mellitus complication status: with hyperglycemia Qualified Code(s): E11.65 - Type 2 diabetes mellitus with hyperglycemia; Z79.4 - nursing home (current) use of insulin
[2019-01-15] MEDS: Insulin LISPRO 300 UNITS/3 ML VIAL SQ SCH ×3 (08:46→17:31)
[2019-01-15 11:07] LABS: INR 3.9
[2019-01-15 11:09] LABS: Prothrombin Time 44.3 Seconds (9.4-12.1)
[2019-01-15] MEDS ORDERED: Warfarin perPT PO PRN (18:00)
[2019-01-16 00:53] LABS: Basophils % 0.2 %; Immature Granulocytes % 0.6 % (0-4)
[2019-01-16 00:54] LABS: Eosinophils # 0.1 K/mcL (0.0-0.6); Eosinophils % 1.5 %; Hematocrit 27.3 % (37.5-50.1); Hemoglobin 8.8 g/dL (12.9-16.9); INR 4.6; Immature Platelets 5.6 % (1.1-6.1); Lymphocytes # 0.7 K/mcL (0.6-4.6); Lymphocytes % 13.2 %; Mean Corpuscular HGB Conc 32.2 g/dL (31.6-35.5); Mean Corpuscular Hemoglobin 28.6 pg (28.0-33.3); Mean Corpuscular Volume 88.6 fL (83.0-100.0); Monocytes # 0.4 K/mcL (0.0-1.3); Monocytes % 7.9 %; Neutrophils # 4.1 K/mcL (1.6-8.9); Prothrombin Time 51.9 Seconds (9.4-12.1); Red Blood Count 3.08 M/mcL (4.19-5.50); Red Cell Distribution Width 14.9 % (11.5-14.5); Segmented Neutrophils % 76.6 %; White Blood Count 5.3 K/mcL (4.3-11.1)
[2019-01-16 00:55] LABS: Platelet Count 65 K/mcL (140-400)
[2019-01-16 00:57] LABS: Calcium 8.3 mg/dL (8.6-10.3); Potassium 3.9 mEq/L (3.5-5.1)
[2019-01-16] MEDS: Levothyroxine 25 MCG TABLET PO SCH (05:49)
[2019-01-16] MEDS: Insulin LISPRO 300 UNITS/3 ML VIAL SQ SCH ×3 (08:44→18:28)
[2019-01-16] MEDS: Furosemide 40 MG/4 ML VIAL IVP SCH (13:16)
--- NOTE | 2019-01-16 13:29 | Internal Med Progress Note ---
<Ofelia Shaikh - Last Filed: 01/16/19 13:52> Hospitalist Progress Note - Encounter Date of Encounter: 01/16/19 - Exam Vitals: Temp Pulse Resp BP Pulse Ox 98.0 F 61 16 97/59 99 01/16/19 11:35 01/16/19 11:35 01/16/19 11:35 01/16/19 11:35 01/16/19 11:35 - Assessment and Plan (1) CHF exacerbation Current Visit: Yes Status: Acute (2) Atrial fibrillation Current Visit: No Status: Acute (3) Diabetes Current Visit: No Status: Chronic - Time Spent with Patient Total time spent is greater than 50% in coordination of care (as documented) at patient's floor/unit and/or counseling patient: Internal Medicine: Result - Labs CBC & Chem 7: 01/16/19 00:18 01/16/19 00:18 Labs: Short CBC 01/16/19 Range/Units 00:18 WBC 5.3 (4.3-11.1) K/mcL Hgb 8.8 L (12.9-16.9) g/dL Hct 27.3 L (37.5-50.1) % Plt Count 65 L (140-400) K/mcL Neutrophils # 4.1 (1.6-8.9) K/mcL BMP 01/16/19 00:18 Sodium 135 L Potassium 3.9 Chloride 103 Carbon Dioxide 22 L BUN 59 H Creatinine 1.77 H Glucose 101 Calcium 8.3 L - ABG Interpretation ABG results: PT/INR, D-dimer PT 51.9 Seconds (9.4-12.1) H* 01/16/19 00:18 Consult Discharge Plan - Plan Instructions: Meal Planning with Diabetes Exchanges (DC), Low Sodium Diet (DC) Referrals: Farhad Rodas, BEEKEEPER [Primary Care Provider] - - Attending Attestation I examined this patient and my medical decision-making was reviewed with the Resident Physician Dr Silva. I agree with the documented findings, disposition and treatment plan as described except to the extent set forth below. Mr Burnett is admitted with CHF exacerbation awake in chair, sob with exertion, none at rest, denies cp, pressure, presyncope. + le edema gen- alert, awake,appears stated age cv- reg rate and rhythm, normal s1,s2, 1+ pitting edema to bl knees lungs- ctabl, no wheezing, rhonchi or crackles, diminished bl bases neuro- AAOx3 Acute HFpEF as evidenced by BL pleural effusions and LE edema- he has not beein receiving lasix in recent days, creat is stable, he remains dyspnic and hypoxic w exertion and BP is at his baseline- IV lasix to be given today, strict i/os, repeat CXR in am (effusions plus bibasilar opacification on CXR previsoulsy, will reassess both) Supratherapeutic INR without bleeding- monitor for signs of bleeding, hold coumadin dispo will be to home with HHC and O2 when medically stable further dx and plan as noted by resident <Selvin Silva - Last Filed: 01/16/19 18:49> Hospitalist Progress Note - Encounter Date of Encounter: 01/16/19 Time of Encounter: 09:55 - Subjective Interval History: Patient seen and examined at bedside. He reports that he has shortness of breath when he stands up. Denies shortness of breath at rest. Also denies palpitations, chest pain, syncope, or visual disturbances. Lower extremity edema is present. Patient has diminished breath sounds bilaterally on exam. - Exam Vitals: Temp Pulse Resp BP Pulse Ox 98.0 F 61 16 97/59 99 01/16/19 11:35 01/16/19 11:35 01/16/19 11:35 01/16/19 11:35 01/16/19 11:35 Exam: General: Conversant, no acute distress Head: atraumatic, normocephalic Eye: PERRL, EOMI Neck: Supple, trachea midline Respiratory: Diminished breath sounds b/l; bibasilar crackles; no rales or rhonchi Cardiovascular: Irregular rhythm, +S1, +S2; no murmurs, rubs, gallops Abdomen: Soft, nontender Extremities: +1 b/l lower extremity pitting edema Neurological: No focal deficits Psychiatric: Normal affect, normal mood Skin: Dry, intact - Assessment and Plan (1) CHF exacerbation Current Visit: Yes Status: Acute Assessment and Plan: - Continue diuresis with Lasix 40 mg IV daily - Strict intake and output - Repeat AM labs (2) Atrial fibrillation Current Visit: Yes Status: Acute Assessment and Plan: - Continue metoprolol, hold Coumadin (3) Diabetes Current Visit: No Status: Chronic Assessment and Plan: - SSI (4) Supratherapeutic INR Current Visit: Yes Status: Acute Assessment and Plan: - No signs of overt bleeding - Hold Coumadin (5) DVT prophylaxis Current Visit: No Status: Acute - Time Spent with Patient Total time spent is greater than 50% in coordination of care (as documented) at patient's floor/unit and/or counseling patient: Internal Medicine: Result - Labs CBC & Chem 7: 01/16/19 00:18 01/16/19 00:18 Labs: Short CBC 01/16/19 Range/Units 00:18 WBC 5.3 (4.3-11.1) K/mcL Hgb 8.8 L (12.9-16.9) g/dL Hct 27.3 L (37.5-50.1) % Plt Count 65 L (140-400) K/mcL Neutrophils # 4.1 (1.6-8.9) K/mcL BMP 01/16/19 00:18 Sodium 135 L Potassium 3.9 Chloride 103 Carbon Dioxide 22 L BUN 59 H Creatinine 1.77 H Glucose 101 Calcium 8.3 L - ABG Interpretation ABG results: PT/INR, D-dimer PT 51.9 Seconds (9.4-12.1) H* 01/16/19 00:18 <Ofelia Shaikh - Last Filed: 01/16/19 13:52> (1) CHF exacerbation Qualifiers: Heart failure type: diastolic Qualified Code(s): I50.33 - Acute on chronic diastolic (congestive) heart failure (2) Atrial fibrillation Qualifiers: Atrial fibrillation type: persistent (3) Diabetes Qualifiers: Diabetes mellitus type: type 2 Diabetes mellitus jail insulin use: with jail use Diabetes mellitus complication status: with hyperglycemia Qualified Code(s): E11.65 - Type 2 diabetes mellitus with hyperglycemia; Z79.4 - snf (current) use of insulin <Selvin Silva - Last Filed: 01/16/19 18:49> (1) CHF exacerbation Qualifiers: Heart failure type: diastolic Qualified Code(s): I50.33 - Acute on chronic diastolic (congestive) heart failure (2) Atrial fibrillation Qualifiers: Qualified Code(s): I48.91 - Unspecified atrial fibrillation (3) Diabetes Qualifiers: Diabetes mellitus type: type 2 Diabetes mellitus jail insulin use: with jail use Diabetes mellitus complication status: with hyperglycemia Qualified Code(s): E11.65 - Type 2 diabetes mellitus with hyperglycemia; 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
[2019-01-16] MEDS ORDERED: Insulin DETEMIR 100 UNIT/ML X5UNITS SQ SCH (21:00)
[2019-01-17 01:56] LABS: Basophils % 0.2 %; Eosinophils % 1.5 %; Immature Granulocytes % 0.6 % (0-4); Monocytes % 6.3 %
[2019-01-17 01:58] LABS: Eosinophils # 0.1 K/mcL (0.0-0.6); Hematocrit 26.9 % (37.5-50.1); Hemoglobin 8.6 g/dL (12.9-16.9); Immature Platelets 5.5 % (1.1-6.1); Lymphocytes # 0.6 K/mcL (0.6-4.6); Lymphocytes % 10.8 %; Mean Corpuscular Hemoglobin 28.7 pg (28.0-33.3); Mean Corpuscular Volume 89.7 fL (83.0-100.0); Mean Platelet Volume 11.2 fL (9.4-12.4); Monocytes # 0.3 K/mcL (0.0-1.3); Segmented Neutrophils % 80.6 %; White Blood Count 5.3 K/mcL (4.3-11.1)
[2019-01-17 02:00] LABS: Neutrophils # 4.3 K/mcL (1.6-8.9); Platelet Count 70 K/mcL (140-400)
[2019-01-17 02:10] LABS: INR 4.3; Prothrombin Time 49.5 Seconds (9.4-12.1)
[2019-01-17 02:21] LABS: Calcium 8.3 mg/dL (8.6-10.3); Potassium 3.8 mEq/L (3.5-5.1)
[2019-01-17] MEDS: Levothyroxine 25 MCG TABLET PO SCH (05:41)
--- NOTE | 2019-01-17 07:19 | Internal Med Progress Note ---
Hospitalist Progress Note - Encounter Date of Encounter: 01/17/19 - Exam Vitals: Temp Pulse Resp BP Pulse Ox 98.2 F 62 16 93/54 99 01/17/19 03:35 01/17/19 03:35 01/17/19 03:35 01/17/19 03:35 01/17/19 03:35 - Assessment and Plan (1) Atrial fibrillation Current Visit: Yes Status: Acute (2) CHF exacerbation Current Visit: Yes Status: Acute (3) Diabetes Current Visit: No Status: Chronic - Time Spent with Patient Total time spent is greater than 50% in coordination of care (as documented) at patient's floor/unit and/or counseling patient: Internal Medicine: Result - Labs CBC & Chem 7: 01/17/19 01:37 01/17/19 01:37 Labs: Short CBC 01/17/19 Range/Units 01:37 WBC 5.3 (4.3-11.1) K/mcL Hgb 8.6 L (12.9-16.9) g/dL Hct 26.9 L (37.5-50.1) % Plt Count 70 L (140-400) K/mcL Neutrophils # 4.3 (1.6-8.9) K/mcL BMP 01/17/19 01:37 Sodium 136 Potassium 3.8 Chloride 104 Carbon Dioxide 22 L BUN 60 H Creatinine 1.89 H Glucose 112 H Calcium 8.3 L - ABG Interpretation ABG results: PT/INR, D-dimer PT 49.5 Seconds (9.4-12.1) H* 01/17/19 01:37 Consult Discharge Plan - Plan Instructions: Meal Planning with Diabetes Exchanges (DC), Low Sodium Diet (DC) Referrals: Farhad Rodas, REPRODUCTIVE SURGEON [Primary Care Provider] - (1) Atrial fibrillation Qualifiers: Qualified Code(s): I48.91 - Unspecified atrial fibrillation (2) CHF exacerbation Qualifiers: Heart failure type: diastolic Qualified Code(s): I50.33 - Acute on chronic diastolic (congestive) heart failure (3) Diabetes Qualifiers: Diabetes mellitus type: type 2 Diabetes mellitus 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
[2019-01-17] MEDS: Insulin LISPRO 300 UNITS/3 ML VIAL SQ SCH ×3 (07:36→16:24)
[2019-01-17] MEDS: Furosemide 40 MG/4 ML VIAL IVP SCH (08:02)
[2019-01-17] MEDS: Insulin DETEMIR 100 UNIT/ML X5UNITS SQ SCH (08:03)
--- NOTE | 2019-01-17 08:18 | Internal Med Progress Note ---
<NeelOfelia M - Last Filed: 01/17/19 14:49> Hospitalist Progress Note - Encounter Date of Encounter: 01/17/19 - Exam Vitals: Temp Pulse Resp BP Pulse Ox 97.6 F 60 16 103/62 99 01/17/19 07:35 01/17/19 07:35 01/17/19 07:35 01/17/19 07:35 01/17/19 07:35 - Assessment and Plan (1) CHF exacerbation Current Visit: Yes Status: Acute (2) Atrial fibrillation Current Visit: No Status: Acute (3) Diabetes Current Visit: No Status: Chronic - Time Spent with Patient Total time spent is greater than 50% in coordination of care (as documented) at patient's floor/unit and/or counseling patient: Internal Medicine: Result - Labs CBC & Chem 7: 01/17/19 01:37 01/17/19 01:37 Labs: Short CBC 01/17/19 Range/Units 01:37 WBC 5.3 (4.3-11.1) K/mcL Hgb 8.6 L (12.9-16.9) g/dL Hct 26.9 L (37.5-50.1) % Plt Count 70 L (140-400) K/mcL Neutrophils # 4.3 (1.6-8.9) K/mcL BMP 01/17/19 01:37 Sodium 136 Potassium 3.8 Chloride 104 Carbon Dioxide 22 L BUN 60 H Creatinine 1.89 H Glucose 112 H Calcium 8.3 L - ABG Interpretation ABG results: PT/INR, D-dimer PT 49.5 Seconds (9.4-12.1) H* 01/17/19 01:37 - Impressions Impressions Chest X-Ray 01/17/19 07:45 IMPRESSION: Mild pulmonary vascular congestion. Stable mild cardiomegaly. Bilateral pleural effusions, moderate to large on the left and moderate on the right, increased on the right since the prior study. Bibasilar atelectasis. D/ / Artem Funez MD / Artem Funez MD Interpreting Provider: Artem Funez MD Consult Discharge Plan - Plan Instructions: Heart Failure (DC), Thoracentesis (DC), Meal Planning with Diabetes Exchanges (DC), Low Sodium Diet (DC) Referrals: Farhad Rodas, CLERICAL STOCK INSPECTOR [Primary Care Provider] - - Attending Attestation The history, physical exam, and medical decision making was performed by the medical student Ivan either while I was physically present and actively involved or I personally re-performed the exam and medical decision making. I have verified the accuracy of the medical student's documentation with regards to the history, physical exam findings, and medical decision making. Mr Burnett is admitted with CHF exacerbation and acute hypoxic resp failure awake in chair, sob with exertion, comofrtable sitting on o2 nc, no cough, sputum or wheezing, denies cp, pressure gen- alert, awake,appears stated age cv- reg rate and rhythm, normal s1,s2, 1+ pitting edema to bl knees lungs- ctabl, no wheezing, rhonchi or crackles, diminished bl bases abd- soft, nt, nd neuro- AAOx3 Acute HFpEF as evidenced by BL pleural effusions and LE edema- cont lasix IV today, correcting INR then IR thoracenteses in am as CXR today reviewed and significant effusions Supratherapeutic INR without bleeding- monitor for signs of bleeding, hold coumadin, vit k today so can have procedure in am Chronic anemia, at baseline CKD stage unknown, with creat at his recent december baseline- close monitoring with diuresis dispo will be to home with HHC and O2 when medically stable I have discussed plan in detail with pt and his daughter, he is eager to proceed with thoracentesis <Nidhi Love - Last Filed: 01/17/19 15:48> Hospitalist Progress Note - Encounter Date of Encounter: 01/17/19 Time of Encounter: 08:40 - Subjective Interval History: Mr. Burnett was examined in hi chair this morning, he had been up moving around the room before I saw him. He reported no complaints and said that his breathing is back to [place]. HE said that he has coughed minimally since the did a scope on him a few weeks ago. HE denied ROSADO, CP, palpitations, N/V/D, sweating or chills. He admits dyspnea and dyspnea on exertion. HE says he breaths fine at rest but still need his 2L O2. - Exam Vitals: Temp Pulse Resp BP Pulse Ox 97.6 F 60 16 103/62 99 01/17/19 07:35 01/17/19 07:35 01/17/19 07:35 01/17/19 07:35 01/17/19 07:35 Exam: General: Conversant, no acute distress Head: atraumatic, normocephalic Eye: PERRL, EOMI Neck: Supple, trachea midline Respiratory: Diminished breath sounds b/l; bibasilar crackles; no rales or rhonchi Cardiovascular: Irregular rhythm, +S1, +S2; no murmurs, rubs, gallops Abdomen: Soft, nontender Extremities: +2 b/l lower extremity pitting edema Neurological: No focal deficits Psychiatric: Normal affect, normal mood Skin: Dry, intact - Assessment and Plan (1) CHF exacerbation Current Visit: Yes Status: Acute Assessment and Plan: - Continue diuresis with Lasix 40 mg IV daily - Strict intake and output - Repeat AM labs (2) Pleural effusion Current Visit: Yes Status: Acute Assessment and Plan: Bilateral pleural effusions, moderate to large on the left and moderate on the right, increased on the right since the prior study. Bibasilar atelectasis. Risks and benefits were discussed with MR burnett of undergoing a thoracentesis to drain the pleural effusions. Mr. Burnett agreed to receive a dose of vitamin K to decrease his INR below a therapeutic level so the procedure can be done more quickly. The goal is to have his INR below 2 by tomorrow so the procedure can be done. Will restart coumadin after his thoracentesis. (3) Atrial fibrillation Current Visit: Yes Status: Acute Assessment and Plan: Continue metoprolol, hold coumadin (4) Supratherapeutic INR Current Visit: Yes Status: Acute Assessment and Plan: NO Signs of bleed Hold coumadin in anticipation of Thoracentesis (5) Diabetes Current Visit: No Status: Chronic - Time Spent with Patient Total time spent is greater than 50% in coordination of care (as documented) at patient's floor/unit and/or counseling patient: Internal Medicine: Result - Labs CBC & Chem 7: 01/17/19 01:37 01/17/19 01:37 Labs: Short CBC 01/17/19 Range/Units 01:37 WBC 5.3 (4.3-11.1) K/mcL Hgb 8.6 L (12.9-16.9) g/dL Hct 26.9 L (37.5-50.1) % Plt Count 70 L (140-400) K/mcL Neutrophils # 4.3 (1.6-8.9) K/mcL BMP 01/17/19 01:37 Sodium 136 Potassium 3.8 Chloride 104 Carbon Dioxide 22 L BUN 60 H Creatinine 1.89 H Glucose 112 H Calcium 8.3 L - ABG Interpretation ABG results: PT/INR, D-dimer PT 49.5 Seconds (9.4-12.1) H* 01/17/19 01:37 - Impressions Impressions Chest X-Ray 01/17/19 07:45 IMPRESSION: Mild pulmonary vascular congestion. Stable mild cardiomegaly. Bilateral pleural effusions, moderate to large on the left and moderate on the right, increased on the right since the prior study. Bibasilar atelectasis. D/ / Artem Funez MD / Artem Funez MD Interpreting Provider: Artem Fnuez MD <Ofelia Shaikh - Last Filed: 01/17/19 14:49> (1) CHF exacerbation Qualifiers: Heart failure type: diastolic Qualified Code(s): I50.33 - Acute on chronic diastolic (congestive) heart failure (2) Atrial fibrillation Qualifiers: Atrial fibrillation type: persistent (3) Diabetes Qualifiers: Diabetes mellitus type: type 2 Diabetes mellitus residential insulin use: with termite inspector use Diabetes mellitus complication status: with hyperglycemia Qualified Code(s): E11.65 - Type 2 diabetes mellitus with hyperglycemia; Z79.4 - [facility] (current) use of insulin <Nidhi Love - Last Filed: 01/17/19 15:48> (1) CHF exacerbation Qualifiers: Heart failure type: diastolic Qualified Code(s): I50.33 - Acute on chronic diastolic (congestive) heart failure (3) Atrial fibrillation Qualifiers: Qualified Code(s): I48.91 - Unspecified atrial fibrillation (5) Diabetes Qualifiers: Diabetes mellitus type: type 2 Diabetes mellitus residential insulin use: with residential use Diabetes mellitus complication status: with hyperglycemia Qualified Code(s): E11.65 - Type 2 diabetes mellitus with hyperglycemia; Z79.4 - [facility] (current) use of insulin
[2019-01-17] MEDS ORDERED: *HR* Phytonadione 5 MG TABLET PO ONE (11:28)
[2019-01-17] MEDS ORDERED: *HR* Warfarin 1 MG TABLET PO ONE (18:00)
[2019-01-17 21:55] LABS: INR 3.8
[2019-01-17 22:05] LABS: Prothrombin Time 43.5 Seconds (9.4-12.1)
[2019-01-18 04:36] LABS: Basophils % 0.3 %; Mean Platelet Volume 11.3 fL (9.4-12.4)
[2019-01-18 04:38] LABS: Eosinophils # 0.1 K/mcL (0.0-0.6); Eosinophils % 1.8 %; Hematocrit 27.2 % (37.5-50.1); Hemoglobin 8.7 g/dL (12.9-16.9); Immature Granulocytes % 0.5 % (0-4); Immature Platelets 5.2 % (1.1-6.1); Lymphocytes # 0.6 K/mcL (0.6-4.6); Lymphocytes % 13.9 %; Mean Corpuscular Hemoglobin 28.9 pg (28.0-33.3); Mean Corpuscular Volume 90.4 fL (83.0-100.0); Monocytes # 0.3 K/mcL (0.0-1.3); Monocytes % 8.1 %; Red Blood Count 3.01 M/mcL (4.19-5.50); Segmented Neutrophils % 75.4 %
[2019-01-18 04:44] LABS: INR 2.4; Prothrombin Time 27.8 Seconds (9.4-12.1)
[2019-01-18 04:47] LABS: Platelet Count 61 K/mcL (140-400)
[2019-01-18 04:52] LABS: Calcium 8.2 mg/dL (8.6-10.3); Potassium 3.5 mEq/L (3.5-5.1)
[2019-01-18] MEDS: Levothyroxine 25 MCG TABLET PO SCH (05:44)
[2019-01-18] MEDS: Insulin LISPRO 300 UNITS/3 ML VIAL SQ SCH ×3 (07:59→17:16)
[2019-01-18] MEDS: Insulin DETEMIR 100 UNIT/ML X5UNITS SQ SCH (07:59)
[2019-01-18 09:45] LABS: Prothrombin Time 22.9 Seconds (9.4-12.1)
--- NOTE | 2019-01-18 09:56 | Internal Med Progress Note ---
<Nidhi Love - Last Filed: 01/18/19 16:28> Hospitalist Progress Note - Encounter Date of Encounter: 01/18/19 Time of Encounter: 09:54 - Subjective Interval History: Mr. Burnett was examined at bedside this morning. He reported no complaints and said that his breathing is still difficult with 2L O2. He said that he has coughed minimally since the did a scope on him a few weeks ago. HE denied ROSADO, CP, palpitations, N/V/D, sweating or chills. He admits dyspnea and dyspnea on exertion. His INR is 2.0 after 1 5mg infusion of vitamin K. IR will perform a thoracentesis this afternoon to drain the pleural effusions. Bilateral Thora centesis was performed in the afternoon and 950mL off of each lung. His BP dropped to 89/57 after the procedure and this will be monitored. - Exam Vitals: Temp Pulse Resp BP Pulse Ox 97.4 F L 64 14 116/72 99 01/18/19 07:09 01/18/19 07:09 01/18/19 07:09 01/18/19 07:09 01/18/19 07:09 Exam: General: Conversant, no acute distress Head: atraumatic, normocephalic Eye: PERRL, EOMI Neck: Supple, trachea midline Respiratory: Diminished breath sounds b/l; bibasilar crackles; no rales or rhonchi Cardiovascular: Irregular rhythm, +S1, +S2; no murmurs, rubs, gallops Abdomen: Soft, nontender Extremities: +2 b/l lower extremity pitting edema Neurological: No focal deficits Psychiatric: Normal affect, normal mood Skin: Dry, intact - Assessment and Plan (1) CHF exacerbation Current Visit: Yes Status: Acute (2) Pleural effusion Current Visit: Yes Status: Acute Assessment and Plan: Bilateral pleural effusions, moderate to large on the left and moderate on the right, increased on the right since the prior study. Bibasilar atelectasis. MR burnett is scheduled for a thoracentesis to drain the pleural effusions this afternoon. Mr. Burnett recieved 1 dose of 5mg vitamin K to decrease INR for the procedure and target INR was reached at 2.0. Will restart coumadin after his thoracentesis. (3) Atrial fibrillation Current Visit: Yes Status: Acute Assessment and Plan: Continue metoprolol, hold coumadin until after IR procedure (4) Diabetes Current Visit: No Status: Chronic Assessment and Plan: continue sliding scale insulin - Time Spent with Patient Total time spent is greater than 50% in coordination of care (as documented) at patient's floor/unit and/or counseling patient: Internal Medicine: Result - Labs CBC & Chem 7: 01/18/19 16:00 01/18/19 03:58 Labs: Short CBC 01/18/19 Range/Units 03:58 WBC 4.0 L (4.3-11.1) K/mcL Hgb 8.7 L (12.9-16.9) g/dL Hct 27.2 L (37.5-50.1) % Plt Count 61 L (140-400) K/mcL Neutrophils # 3.0 (1.6-8.9) K/mcL BMP 01/18/19 03:58 Sodium 134 L Potassium 3.5 Chloride 102 Carbon Dioxide 24 BUN 63 H Creatinine 1.78 H Glucose 164 H Calcium 8.2 L - ABG Interpretation ABG results: PT/INR, D-dimer PT 22.9 Seconds (9.4-12.1) H 01/18/19 09:15 Consult Discharge Plan - Plan Instructions: Heart Failure (DC), Thoracentesis (DC), Meal Planning with Diabetes Exchanges (DC), Low Sodium Diet (DC) Referrals: Farhad Rodas, VISUALLY IMPAIRED TEACHER [Primary Care Provider] - 01/25/19 9:20 am <Ofelia Shaikh - Last Filed: 01/18/19 17:17> Hospitalist Progress Note - Encounter Date of Encounter: 01/18/19 - Exam Vitals: Temp Pulse Resp BP Pulse Ox 97.5 F L 65 16 92/54 100 01/18/19 16:10 01/18/19 16:10 01/18/19 16:10 01/18/19 16:12 01/18/19 16:10 - Assessment and Plan (1) CHF exacerbation Current Visit: Yes Status: Acute (2) Atrial fibrillation Current Visit: No Status: Acute (3) Diabetes Current Visit: No Status: Chronic - Time Spent with Patient Total time spent is greater than 50% in coordination of care (as documented) at patient's floor/unit and/or counseling patient: Internal Medicine: Result - Labs CBC & Chem 7: 01/18/19 16:00 01/18/19 03:58 Labs: Short CBC 01/18/19 01/18/19 Range/Units 03:58 16:00 WBC 4.0 L (4.3-11.1) K/mcL Hgb 8.7 L 9.2 L (12.9-16.9) g/dL Hct 27.2 L 28.2 L (37.5-50.1) % Plt Count 61 L (140-400) K/mcL Neutrophils # 3.0 (1.6-8.9) K/mcL BMP 01/18/19 03:58 Sodium 134 L Potassium 3.5 Chloride 102 Carbon Dioxide 24 BUN 63 H Creatinine 1.78 H Glucose 164 H Calcium 8.2 L - ABG Interpretation ABG results: PT/INR, D-dimer PT 22.9 Seconds (9.4-12.1) H 01/18/19 09:15 - Impressions Impressions Chest X-Ray 01/18/19 15:12 IMPRESSION: No pneumothorax. Residual trace right and small left pleural effusions. D/ / Volodymyr Choudhary / Volodymyr Choudhary Interpreting Provider: Volodymyr Choudhary Thoracentesis 01/18/19 15:32 IMPRESSION: Successful ultrasound guided thoracentesis. D/ / Freida Cristina MD / Freida Cristina MD Interpreting Provider: Freida Cristina MD Thoracentesis 01/18/19 15:33 IMPRESSION: Successful ultrasound guided thoracentesis. D/ / Freida Cristina MD / Freida Cristina MD Interpreting Provider: Freida Cristina MD - Attending Attestation The history, physical exam, and medical decision making was performed by the medical student Love either while I was physically present and actively involved or I personally re-performed the exam and medical decision making. I have ve rified the accuracy of the medical student's documentation with regards to the history, physical exam findings, and medical decision making. Mr Burnett is admitted with CHF exacerbation and acute hypoxic resp failure awake, awaiting thoracentesis, sob stable on o2 nc, no complaints gen- alert, awake,appears stated age cv- reg rate and rhythm, normal s1,s2, 1+ pitting edema to bl knees unchanged lungs- ctabl, , diminished bl bases neuro- AAOx3 Acute HFpEF as evidenced by BL pleural effusions and LE edema- last echo end of december 2018, trop at admit 0.09 and his baseline -cont lasix IV , IR thoracentesis with nearly 1L out of both lungs Supratherapeutic INR without bleeding- monitor for signs of bleeding, hold coumadin, vit k today so can have procedure in am Chronic anemia, at baseline CKD stage unknown, with creat at his recent december baseline- close monitoring with diuresis dispo will be to home with HHC and O2 when medically stable <Nidhi Love - Last Filed: 01/18/19 16:28> (1) CHF exacerbation Qualifiers: Heart failure type: diastolic Qualified Code(s): I50.33 - Acute on chronic diastolic (congestive) heart failure (3) Atrial fibrillation Qualifiers: Qualified Code(s): I48.91 - Unspecified atrial fibrillation (4) Diabetes Qualifiers: Diabetes mellitus type: type 2 Diabetes mellitus terminal manager insulin use: with terminal manager use Diabetes mellitus complication status: with hyperglycemia Qual ified Code(s): E11.65 - Type 2 diabetes mellitus with hyperglycemia; Z79.4 - senior living (current) use of insulin <Ofelia Shaikh - Last Filed: 10/04/19 17:17> (1) CHF exacerbation Qualifiers: Heart failure type: diastolic Qualified Code(s): I50.33 - Acute on chronic diastolic (congestive) heart failure (2) Atrial fibrillation Qualifiers: Atrial fibrillation type: persistent (3) Diabetes Qualifiers: Diabetes mellitus type: type 2 Diabetes mellitus terminal manager insulin use: with fci use Diabetes mellitus complication status: with hyperglycemia Qualified Code(s): E11.65 - Type 2 diabetes mellitus with hyperglycemia; Z79.4 - senior living (current) use of insulin
[2019-01-18] MEDS: Furosemide 40 MG/4 ML VIAL IVP SCH (10:02)
[2019-01-18] MEDS ORDERED: *HR* Phytonadione 5 MG TABLET PO ONE (11:44)
--- NOTE | 2019-01-18 14:39 | IR Procedure Note ---
Date of procedure: 01/18/19 Consent Obtained: Written consent Timeout: Correct patient and procedure verified, Correct site verified, Time out performed, Skin prep completed Local anesthetic: Lidocaine 1% Was there an volunteer assistant present: Yes Preschool Substitute Teacher: Anaid Pearl Estimated blood loss (cc): 0 Complications: None; Tolerated procedure well Indications: bilateral plural effusion Procedure Performed: bilateral thoracentesis Site/Technique: bilateral lower lungs Results/Findings (any specimens removed): 950 cc from left , 950 cc from right Post Procedure Treatment Plan: back to floor Specimen: sample sent
[2019-01-18 16:15] LABS: Hematocrit 28.2 % (37.5-50.1); Hemoglobin 9.2 g/dL (12.9-16.9)
[2019-01-18] MEDS ORDERED: *HR* Warfarin 1 MG TABLET PO ONE (18:00)
[2019-01-18] MEDS ORDERED: Warfarin perPT PO PRN (18:00)
[2019-01-19 04:08] LABS: Basophils % 0.2 %; Hemoglobin 9.1 g/dL (12.9-16.9); Immature Granulocytes % 0.4 % (0-4); Monocytes % 7.9 %
[2019-01-19 04:10] LABS: Eosinophils # 0.1 K/mcL (0.0-0.6); Eosinophils % 1.1 %; Hematocrit 28.2 % (37.5-50.1); Immature Platelets 4.2 % (1.1-6.1); Lymphocytes # 0.6 K/mcL (0.6-4.6); Lymphocytes % 11.3 %; Mean Corpuscular HGB Conc 32.3 g/dL (31.6-35.5); Mean Corpuscular Hemoglobin 28.8 pg (28.0-33.3); Mean Corpuscular Volume 89.2 fL (83.0-100.0); Mean Platelet Volume 11.3 fL (9.4-12.4); Monocytes # 0.4 K/mcL (0.0-1.3); Neutrophils # 4.4 K/mcL (1.6-8.9); Red Blood Count 3.16 M/mcL (4.19-5.50); Red Cell Distribution Width 14.8 % (11.5-14.5); Segmented Neutrophils % 79.1 %; White Blood Count 5.6 K/mcL (4.3-11.1)
[2019-01-19 04:17] LABS: Platelet Count 65 K/mcL (140-400)
[2019-01-19 04:28] LABS: Calcium 8.2 mg/dL (8.6-10.3); Potassium 3.5 mEq/L (3.5-5.1)
[2019-01-19] MEDS: Levothyroxine 25 MCG TABLET PO SCH (05:36)
[2019-01-19 05:59] LABS: INR 1.5; Prothrombin Time 17.2 Seconds (9.4-12.1)
--- NOTE | 2019-01-19 07:42 | Internal Med Progress Note ---
<Ofelia Shaikh - Last Filed: 01/19/19 12:56> Hospitalist Progress Note - Encounter Date of Encounter: 01/19/19 - Exam Vitals: Temp Pulse Resp BP Pulse Ox 97.8 F 74 14 94/58 97 01/19/19 11:03 01/19/19 11:03 01/19/19 11:03 01/19/19 11:03 01/19/19 11:03 - Assessment and Plan (1) CHF exacerbation Current Visit: Yes Status: Acute (2) Atrial fibrillation Current Visit: No Status: Acute (3) Diabetes Current Visit: No Status: Chronic - Time Spent with Patient Total time spent is greater than 50% in coordination of care (as documented) at patient's floor/unit and/or counseling patient: Internal Medicine: Result - Labs CBC & Chem 7: 01/19/19 03:53 01/19/19 03:53 Labs: Short CBC 01/18/19 01/19/19 Range/Units 16:00 03:53 WBC 5.6 (4.3-11.1) K/mcL Hgb 9.2 L 9.1 L (12.9-16.9) g/dL Hct 28.2 L 28.2 L (37.5-50.1) % Plt Count 65 L (140-400) K/mcL Neutrophils # 4.4 (1.6-8.9) K/mcL BMP 01/19/19 03:53 Sodium 132 L Potassium 3.5 Chloride 102 Carbon Dioxide 24 BUN 64 H Creatinine 1.86 H Glucose 138 H Calcium 8.2 L - ABG Interpretation ABG results: PT/INR, D-dimer PT 17.2 Seconds (9.4-12.1) H 01/19/19 04:50 - Impressions Impressions Chest X-Ray 01/18/19 15:12 IMPRESSION: No pneumothorax. Residual trace right and small left pleural effusions. D/ / Volodymyr Choudhary / Volodymyr Choudhary Interpreting Provider: Volodymyr Choudhary Thoracentesis 01/18/19 15:32 IMPRESSION: Successful ultrasound guided thoracentesis. D/ / Freida Cristina MD / Freida Cristina MD Interpreting Provider: Freida Cristina MD Thoracentesis 01/18/19 15:33 IMPRESSION: Successful ultrasound guided thoracentesis. D/ / Freida Cristina MD / Freida Cristina MD Interpreting Provider: Freida Cristina MD Consult Discharge Plan - Plan Instructions: Heart Failure (DC), Thoracentesis (DC), Meal Planning with Diabetes Exchanges (DC), Low Sodium Diet (DC) Referrals: Farhad Rodas, INFECTION PREVENTIONIST [Primary Care Provider] - 01/25/19 9:20 am - Attending Attestation I examined this patient and my medical decision-making was reviewed with the Resident Physician Dr Ewing. I agree with the documented findings, disposition and treatment plan as described except to the extent set forth below. Mr Burnett is admitted with CHF exacerbation and acute hypoxic resp failure awake, sob greatly improved s/p thoracentesis, no complaints today, le edema improved as well today, aware he is awaiting inr increase prior to dc and continued IV lasix gen- alert, awake,appears stated age cv- reg rate and rhythm, normal s1,s2, 1+ pitting edema to bl shins lungs- ctabl, , diminished bl bases but improved aeration, no crackles neuro- AAOx3 Acute HFpEF- last echo end of december 2018, trop at admit 0.09 and his baseline -cont lasix IV today, will need higher dose than prior home on dc, refer to nephro on dc for management of HCF in setting of kidney disease Supratherapeutic INR without bleeding, required reversal for IR thoracentesis- pharm dosing coumadin, no bridge as not in Afib here, but monitoring for dose adjustments by pharmacy inpt is still required CKD stage unknown, with creat at his recent december baseline- close monitoring with diuresis, outpt nephro follow up Chronic anemia and thrombocytopenia- fu outpt with pcp dispo will be to home with HHC and O2 when medically stable, repeat 6 min walk today vte ppx sq hep <Selvin Ewing - Last Filed: 01/19/19 20:04> Hospitalist Progress Note - Encounter Date of Encounter: 01/19/19 Time of Encounter: 09:56 - Subjective Interval History: Patient was seen and examined at bedside. He states that he is feeling well today. He states that his breathing has improved after his pleural effusions were drained. Patient will be sent home soon with HHC and O2 when medically stable. We will order a 6 minute walk test today. We will increase patients Lasix to 40 mg twice a day. - Exam Vitals: Temp Pulse Resp BP Pulse Ox 97.7 F 60 16 104/55 98 01/19/19 07:08 01/19/19 07:08 01/19/19 07:08 01/19/19 07:08 01/19/19 07:08 Exam: General: Conversant, no acute distress Head: atraumatic, normocephalic Eye: PERRL, EOMI Neck: Supple, trachea midline Respiratory: Diminished breath sounds b/l; bibasilar crackles; no rales or rhonchi Cardiovascular: RRR, +S1, +S2; no murmurs, rubs, gallops Abdomen: Soft, nontender Extremities: +1 b/l lower extremity pitting edema Neurological: No focal deficits Psychiatric: Normal affect, normal mood Skin: Dry, intact - Assessment and Plan (1) CHF exacerbation Current Visit: Yes Status: Acute Assessment and Plan: - Continue diuresis with Lasix 40 mg IV daily - Patients home dose of Lasix will be increased to 40 mg by mouth twice a day - Strict intake and output - Repeat AM labs - Patient will likely benefit from nephrology referral in the outpatient setting for management of diuresis (2) Atrial fibrillation Current Visit: Yes Status: Acute Assessment and Plan: - Coumadin being dosed by pharmacy (3) Diabetes Current Visit: No Status: Chronic Assessment and Plan: - SSI (4) DVT prophylaxis Current Visit: No Status: Acute Assessment and Plan: - Heparin SQ - Time Spent with Patient Total time spent is greater than 50% in coordination of care (as documented) at patient's floor/unit and/or counseling patient: Internal Medicine: Result - Labs CBC & Chem 7: 01/19/19 03:53 01/19/19 03:53 Labs: Short CBC 01/18/19 01/19/19 Range/Units 16:00 03:53 WBC 5.6 (4.3-11.1) K/mcL Hgb 9.2 L 9.1 L (12.9-16.9) g/dL Hct 28.2 L 28.2 L (37.5-50.1) % Plt Count 65 L (140-400) K/mcL Neutrophils # 4.4 (1.6-8.9) K/mcL BMP 01/19/19 03:53 Sodium 132 L Potassium 3.5 Chloride 102 Carbon Dioxide 24 BUN 64 H Creatinine 1.86 H Glucose 138 H Calcium 8.2 L - ABG Interpretation ABG results: PT/INR, D-dimer PT 17.2 Seconds (9.4-12.1) H 01/19/19 04:50 - Impressions Impressions Chest X-Ray 01/18/19 15:12 IMPRESSION: No pneumothorax. Residual trace right and small left pleural effusions. D/ / Volodymyr Choudhary / Volodymyr Choudhary Interpreting Provider: Volodymyr Choudhary Thoracentesis 01/18/19 15:32 IMPRESSION: Successful ultrasound guided thoracentesis. D/ / Freida Cristina MD / Freida Cristina MD Interpreting Provider: Freida Cristina MD Thoracentesis 01/18/19 15:33 IMPRESSION: Successful ultrasound guided thoracentesis. D/ / Freida Cristina MD / Freida Cristina MD Interpreting Provider: Freida Cristina MD <Ofelia Shaikh - Last Filed: 01/19/19 12:56> (1) CHF exacerbation Qualifiers: Heart failure type: diastolic Qualified Code(s): I50.33 - Acute on chronic diastolic (congestive) heart failure (2) Atrial fibrillation Qualifiers: Atrial fibrillation type: persistent (3) Diabetes Qualifiers: Diabetes mellitus type: type 2 Diabetes mellitus jail insulin use: with middle or intermediate school principal use Diabetes mellitus complication status: with hyperglycemia Qualified Code(s): E11.65 - Type 2 diabetes mellitus with hyperglycemia; Z79.4 - skilled nursing (current) use of insulin <Selvin Ewing - Last Filed: 01/19/19 20:04> (1) CHF exacerbation Qualifiers: Heart failure type: diastolic Qualified Code(s): I50.33 - Acute on chronic diastolic (congestive) heart failure (2) Atrial fibrillation Qualifiers: Qualified Code(s): I48.91 - Unspecified atrial fibrillation (3) Diabetes Qualifiers: Diabetes mellitus type: type 2 Diabetes mellitus middle or intermediate school principal insulin use: with jail use Diabetes mellitus complication status: with hyperglycemia Qualified Code(s): E11.65 - Type 2 diabetes mellitus with hyperglycemia; Z79.4 - skilled nursing (current) use of insulin
[2019-01-19] MEDS: Insulin LISPRO 300 UNITS/3 ML VIAL SQ SCH ×3 (10:22→16:46)
[2019-01-19] MEDS: Furosemide 40 MG/4 ML VIAL IVP SCH (10:23)
[2019-01-19] MEDS: Insulin DETEMIR 100 UNIT/ML X5UNITS SQ SCH (10:23)
[2019-01-19] MEDS: *HR* Heparin 5,000 UNIT/ML VIAL SQ SCH ×3 (10:23→20:54)
[2019-01-19] MEDS ORDERED: *HR* Warfarin 1 MG TABLET PO ONE (18:00)
[2019-01-20 02:16] LABS: Basophils % 0.2 %; Immature Granulocytes % 0.4 % (0-4); Mean Corpuscular HGB Conc 32.7 g/dL (31.6-35.5)
[2019-01-20 02:18] LABS: Eosinophils # 0.1 K/mcL (0.0-0.6); Eosinophils % 1.5 %; Hematocrit 25.4 % (37.5-50.1); Hemoglobin 8.3 g/dL (12.9-16.9); Immature Platelets 5.1 % (1.1-6.1); Lymphocytes # 0.6 K/mcL (0.6-4.6); Lymphocytes % 12.9 %; Mean Corpuscular Hemoglobin 28.9 pg (28.0-33.3); Mean Corpuscular Volume 88.5 fL (83.0-100.0); Mean Platelet Volume 11.3 fL (9.4-12.4); Monocytes # 0.5 K/mcL (0.0-1.3); Monocytes % 9.8 %; Neutrophils # 3.6 K/mcL (1.6-8.9); Platelet Count 62 K/mcL (140-400); Red Blood Count 2.87 M/mcL (4.19-5.50); Red Cell Distribution Width 15.1 % (11.5-14.5); Segmented Neutrophils % 75.2 %; White Blood Count 4.8 K/mcL (4.3-11.1)
[2019-01-20 02:22] LABS: INR 1.6; Prothrombin Time 18.1 Seconds (9.4-12.1)
[2019-01-20 02:40] LABS: Potassium 3.3 mEq/L (3.5-5.1)
[2019-01-20] MEDS: *HR* Heparin 5,000 UNIT/ML VIAL SQ SCH ×3 (05:49→20:26)
[2019-01-20] MEDS: Levothyroxine 25 MCG TABLET PO SCH (05:49)
--- NOTE | 2019-01-20 08:14 | Internal Med Progress Note ---
<NeelOfelia M - Last Filed: 01/20/19 12:24> Hospitalist Progress Note - Encounter Date of Encounter: 01/20/19 - Exam Vitals: Temp Pulse Resp BP Pulse Ox 97.5 F L 87 16 104/67 100 01/20/19 11:45 01/20/19 11:45 01/20/19 11:45 01/20/19 11:45 01/20/19 11:45 - Assessment and Plan (1) CHF exacerbation Current Visit: Yes Status: Acute (2) Atrial fibrillation Current Visit: No Status: Acute (3) Diabetes Current Visit: No Status: Chronic - Time Spent with Patient Total time spent is greater than 50% in coordination of care (as documented) at patient's floor/unit and/or counseling patient: Internal Medicine: Result - Labs CBC & Chem 7: 01/20/19 01:25 01/20/19 01:25 Labs: Short CBC 01/20/19 Range/Units 01:25 WBC 4.8 (4.3-11.1) K/mcL Hgb 8.3 L (12.9-16.9) g/dL Hct 25.4 L (37.5-50.1) % Plt Count 62 L (140-400) K/mcL Neutrophils # 3.6 (1.6-8.9) K/mcL BMP 01/20/19 01:25 Sodium 134 L Potassium 3.3 L Chloride 101 Carbon Dioxide 25 BUN 66 H Creatinine 2.06 H Glucose 138 H Calcium 8.0 L - ABG Interpretation ABG results: PT/INR, D-dimer PT 18.1 Seconds (9.4-12.1) H 01/20/19 01:25 Consult Discharge Plan - Plan Instructions: Heart Failure (DC), Thoracentesis (DC), Meal Planning with Diabetes Exchanges (DC), Low Sodium Diet (DC) Referrals: Farhad Rodas, [employer] [Primary Care Provider] - 01/25/19 9:20 am - Attending Attestation I examined this patient and my medical decision-making was reviewed with the Resident Physician Dr Ewing. I agree with the documented findings, disposition and treatment plan as described except to the extent set forth below. Mr Burnett is admitted with CHF exacerbation and acute hypoxic resp failure awake, sob continues to improve as does le edema, aware that INR is not to goal and outpt arrangements need made for close monitoring, which he agrees with. no cp, pressure or cough gen- alert, awake,appears stated age cv- reg rate and rhythm, normal s1,s2, trace pitting edema to bl shins lungs- ctabl, , diminished bl bases no crackles neuro- AAOx3 Acute HFpEF- last echo end of december 2018, trop at admit 0.09 and his b aseline -cont lasix IV today and transition to oral in am in prep for dc tomorrow morning, will need higher dose than prior home on dc, refer to nephro on dc for management of HCF in setting of kidney disease Supratherapeutic INR without bleeding, required reversal for IR thoracentesis/ now subtherapeutic- pharm dosing coumadin, no bridge as not in Afib here, but monitoring for dose adjustments by pharmacy inpt is still required, will coordinate for close pcp fu and inr check in am when office opens with plan to dc if NR cont to increase toward goal CKD stage unknown, with creat at his recent december baseline- close monitoring with diuresis, outpt nephro follow up Chronic anemia and thrombocytopenia- fu outpt with pcp dispo will be to home with [facility] , repeat 6 min walk today in prep for dc to home in am, will need pcp appt set up and outpt inr check in 2 days, will determine dc couamdin dosing in am pending inr result in am further dx and plan as noted by resident <Selvin Ewing - Last Filed: 01/20/19 15:39> Hospitalist Progress Note - Encounter Date of Encounter: 01/20/19 Time of Encounter: 08:54 - Subjective Interval History: Patient was seen and examined at bedside. Reports that he is feeling well today. Shortness of breath is improving. INR is not to goal today; currently 1.6. We are continuing Coumadin, which is being dosed by pharmacy. O2 qualification test was performed today; patient did not qualify for oxygen. Patient will be transitioned to oral Lasix tomorrow. He will be discharged to home with [facility], likely tomorrow morning. He will require close follow-up in the outpatient setting with primary care provider, as well as an outpatient INR check in 2 days. - Exam Vitals: Temp Pulse Resp BP Pulse Ox 97.6 F 61 14 93/59 99 01/20/19 07:05 01/20/19 07:05 01/20/19 07:05 01/20/19 07:05 01/20/19 07:05 Exam: General: Conversant, no acute distress Head: atraumatic, normocephalic Eye: PERRL, EOMI Neck: Supple, trachea midline Respiratory: Diminished breath sounds b/l; bibasilar crackles; no rales or rho nchi Cardiovascular: RRR, +S1, +S2; no murmurs, rubs, gallops Abdomen: Soft, nontender Extremities: Trace b/l lower extremity edema Neurological: No focal deficits Psychiatric: Normal affect, normal mood Skin: Dry, intact - Assessment and Plan (1) CHF exacerbation Current Visit: Yes Status: Acute Assessment and Plan: - Continue diuresis with Lasix 40 mg IV daily - Patients home dose of Lasix will be increased to 40 mg by mouth twice a day; oral Lasix will be started tomorrow - Strict intake and output - Repeat AM labs - Patient will likely benefit from nephrology referral in the outpatient setting for management of diuresis in the setting of underlying chronic kidney disease (2) CKD (chronic kidney disease) Current Visit: Yes Status: Acute Assessment and Plan: - Stage unknown; will continue to closely monitor creatinine while diuresing - Patient may benefit from establishing with outpatient nephrology after discharge (3) Atrial fibrillation Current Visit: Yes Status: Acute Assessment and Plan: - Coumadin being dosed by pharmacy (4) Anemia Current Visit: No Status: Chronic Assessment and Plan: - Chronic; patient will follow-up with PCP in the outpatient setting for further workup (5) Diabetes Current Visit: No Status: Chronic Assessment and Plan: - SSI (6) DVT prophylaxis Current Visit: No Status: Acute Assessment and Plan: - Continue home coumadin - Time Spent with Patient Total time spent is greater than 50% in coordination of care (as documented) at patient's floor/unit and/or counseling patient: Internal Medicine: Result - Labs CBC & Chem 7: 01/20/19 01:25 01/20/19 01:25 Labs: Short CBC 01/20/19 Range/Units 01:25 WBC 4.8 (4.3-11.1) K/mcL Hgb 8.3 L (12.9-16.9) g/dL Hct 25.4 L (37.5-50.1) % Plt Count 62 L (140-400) K/mcL Neutrophils # 3.6 (1.6-8.9) K/mcL BMP 01/20/19 01:25 Sodium 134 L Potassium 3.3 L Chloride 101 Carbon Dioxide 25 BUN 66 H Creatinine 2.06 H Glucose 138 H Calcium 8.0 L - ABG Interpretation ABG results: PT/INR, D-dimer PT 18.1 Seconds (9.4-12.1) H 01/20/19 01:25 <Ofelia Shaikh - Last Filed: 01/20/19 12:24> (1) CHF exacerbation Qualifiers: Heart failure type: diastolic Qualified Code(s): I50.33 - Acute on chronic diastolic (congestive) heart failure (2) Atrial fibrillation Qualifiers: Atrial fibrillation type: persistent (3) Diabetes Qualifiers: Diabetes mellitus type: type 2 Diabetes mellitus residential insulin use: with intermediate project manager use Diabetes mellitus complication status: with hyperglycemia Qualified Code(s): E11.65 - Type 2 diabetes mellitus with hyperglycemia; Z79.4 - group home (current) use of insulin <Selvin Ewing - Last Filed: 01/20/19 15:39> (1) CHF exacerbation Qualifiers: Heart failure type: diastolic Qualified Code(s): I50.33 - Acute on chronic diastolic (congestive) heart failure (3) Atrial fibrillation Qualifiers: Qualified Code(s): I48.91 - Unspecified atrial fibrillation (4) Anemia Qualifiers: Anemia type: unspecified type Qualified Code(s): D64.9 - Anemia, unspecified (5) Diabetes Qualifiers: Diabetes mellitus type: type 2 Diabetes mellitus residential insulin use: with residential use Diabetes mellitus complication status: with hyperglycemia Qualified Code(s): E11.65 - Type 2 diabetes mellitus with hyperglycemia; Z79.4 - group home (current) use of insulin
[2019-01-20] MEDS: Furosemide 40 MG/4 ML VIAL IVP SCH (08:39)
[2019-01-20] MEDS: Insulin LISPRO 300 UNITS/3 ML VIAL SQ SCH ×3 (08:40→15:53)
[2019-01-20] MEDS: Insulin DETEMIR 100 UNIT/ML X5UNITS SQ SCH (08:40)
[2019-01-20] MEDS ORDERED: Potassium Chloride Elixir 20 MEQ/15 ML UDC PO ONE (15:28)
[2019-01-20] MEDS ORDERED: *HR* Warfarin 1 MG TABLET PO ONE (18:00)
[2019-01-21 02:23] LABS: INR 1.7; Prothrombin Time 19.3 Seconds (9.4-12.1)
[2019-01-21] MEDS: *HR* Heparin 5,000 UNIT/ML VIAL SQ SCH (06:49)
[2019-01-21] MEDS: Levothyroxine 25 MCG TABLET PO SCH (06:50)
[2019-01-21 07:30] VITALS: BP 108/65
--- NOTE | 2019-01-21 08:06 | Physician Discharge Referral ---
Home Health/Hosp Referral Info Transfer to: Home Health Provider in Charge Post Discharge: PCP - Diagnosis (1) CHF exacerbation Priority: Primary Status: Resolved (2) Atrial fibrillation Priority: Secondary Status: Chronic (3) Diabetes Priority: Secondary Status: Chronic (4) CAD (coronary artery disease) Status: Acute (5) CKD (chronic kidney disease) Priority: Secondary Status: Chronic (6) Iron (Fe) deficiency anemia Priority: Secondary Status: Chronic (7) Thrombocytopenia Priority: Secondary Status: Chronic - Respiratory Orders None Smoking Cessation: Smoking cessation has been advised. For more information, call the [place] Tobacco Quit Line at 9-249-KKLE-NOW. - Diet/Nutrition Diet/Nutrition Orders: No Added Salt (RONALD), Cardiac, No Concentrated Sweets - Activity Activity Orders: Up ad kylah - Services Needed Following services are medically necessary services: Nursing, Home Health Aide Home Care Orders: in 2 days obtain CBC, BMP and INR. Results to be forwarded to Farhad Rodas CNP and Dr Patric Tapia [facility] glucose level checks and pt to record numbers for PCP - Transfer Medications Home Medications: Finasteride [Proscar] 5 mg PO DAILY 04/27/15 [History] Furosemide [Lasix] 40 mg PO DAILY 04/27/15 [History] Magnesium Oxide [Magnesium] 400 mg PO BID 04/27/15 [History] Omeprazole [PriLOSEC] 20 mg PO DAILY 04/27/15 [History] Simvastatin [Zocor] 40 mg PO HS 04/27/15 [History] Tamsulosin [Flomax] 0.8 mg PO HS 04/27/15 [History] Warfarin [Coumadin] 1 mg PO DAILY 04/27/15 [History] Levothyroxine Sodium [Tirosint] 25 mcg PO QAM 06/28/18 [History] Ergocalciferol (VITAMIN D2) [Vitamin D2] 50,000 unit PO MO 01/03/19 [History] Loratadine [Claritin] 10 mg PO DAILY 01/03/19 [History] Metoprolol [Lopressor] 25 mg PO BID #0 01/05/19 [Rx] Insulin Glargine,Hum.rec.anlog [Lantus Solostar] 10 unit SQ DAILY #0 01/21/19 [Rx] Allergies/Adverse Reactions: Allergy/AdvReac Type Severity Reaction Status Date / Time No Known Allergies Allergy Verified 01/10/19 22:32 Certification: Further, I certify that my clinical findings support that this patient is homebound (i.e. absences from home require considerable and taxing effort and are for medical reasons or mandaeism services or infrequently or short duration when for other reasons) because: Homebound Reason: Leaving home requires considerable and taxing effort due to condition Attestation: My signature below is to certify that this patient is under my care and that I, or nurse practitioner, or a physician's pastry assistant working with me, has a [id number] encounter with this patient.
[2019-01-21 08:10] LABS: Hematocrit 28.4 % (37.5-50.1); Hemoglobin 9.2 g/dL (12.9-16.9)
[2019-01-21 08:31] LABS: Calcium 8.4 mg/dL (8.6-10.3); Potassium 3.7 mEq/L (3.5-5.1)
[2019-01-21] MEDS: Insulin LISPRO 300 UNITS/3 ML VIAL SQ SCH (08:59)
[2019-01-21] MEDS ORDERED: Furosemide 40 MG TABLET PO SCH ×2 (09:00)
[2019-01-21] MEDS: Insulin DETEMIR 100 UNIT/ML X5UNITS SQ SCH (09:01)
--- NOTE | 2019-01-21 10:12 | Event Note ---
<Nidhi Love - Last Filed: 01/21/19 15:06> Date of Encounter: 01/21/19 Time of Encounter: 09:30 Subjective: Mr. Burnett was doing well this morning, he was up and walking when I entered the room. He mentioned his breathing was much improved and that he felt ready to go home after completing his 6 minute walk test. He denied cough, CP, palpitation, lightheadedness, dizziness, N,V,D. Patient is ready for discharge. Objective: T- 98.0 BP-108/65 HR- 64 RR-16 O2 95 Exam: General: Conversant, no acute distress Head: atraumatic, normocephalic Eye: PERRL, EOMI Neck: Supple, trachea midline Respiratory: Diminished breath sounds b/l; mild bibasilar crackles, much improved from last week ; no rales or rhonchi Cardiovascular: RRR, +S1, +S2; no murmurs, rubs, gallops Abdomen: Soft, nontender Extremities:b/l lower extremity trace edema Neurological: No focal deficits Psychiatric: Normal affect, normal mood Skin: Dry, intact - Assessment and Plan (1) CHF exacerbation Current Visit: Yes Status: Acute - Patients home dose of Lasix will be increased to 40 mg PO BID - Patient will likely benefit from nephrology referral in the outpatient setting for management of diuresis in the setting of underlying chronic kidney disease (2) CKD (chronic kidney disease) Current Visit: Yes Status: Acute Assessment and Plan: - Stage unknown; creatinine will be checked in the outpatient setting by PCP (3) Atrial fibrillation Current Visit: Yes Status: Acute Assessment and Plan: - Coumadin will be sent home - home health to recheck INR 2 days post discharge - Dose to be adjusted by PCP or trimming cutter machine (4) Anemia Current Visit: No Status: Chronic Assessment and Plan: - Chronic; patient will follow-up with PCP in the outpatient setting for further workup (5) Diabetes Current Visit: No Status: Chronic Assessment and Plan: - SSI - Nighttime insulin has been decreased for discharge; patient instructed to keep a close log of his blood glucose levels for follow up visit with PCP (6) DVT prophylaxis Current Visit: No Status: Acute Assessment and Plan: - Continue home coumadin <Ofelia Shaikh - Last Filed: 01/21/19 15:24> Date of Encounter: 01/21/19 The history, physical exam, and medical decision making was performed by the medical student Ivan either while I was physically present and actively involved or I personally re-performed the exam and medical decision making. I have verified the accuracy of the medical student's documentation with regards to the history, physical exam findings, and medical decision making. Mr Burnett is admitted with CHF exacerbation and acute hypoxic resp failure awake, feeling well, no sob on room air discussed dc plan in detail gen- alert, awake,appears stated age cv- reg rate and rhythm, normal s1,s2, trace pitting edema lungs- ctabl, , diminished bl bases no crackles, norm resp effort on room air neuro- AAOx3 Acute HFpEF ( last echo end of december 2018, trop at admit 0.09 and his baseline) -po lasix 40 mg daily given looking near euvolemic and with kidney disease, refer to nephro on dc for management of HCF in setting of kidney disease Supratherapeutic INR without bleeding, required reversal for IR thoracentesis/ now subtherapeutic-INR 1.7, cont home couamdin on dc and NR check in 2 days ordered w home helath and noted to be sent to Farhad Rodas CNP and Dr Tapia CKD stage unknown, with creat at his recent december baseline- outpt nephro follow up Chronic anemia and thrombocytopenia- fu outpt with pcp CAD hx- holding home acei as bps were running low normotensive this admit, he will fu with his trimming cutter machine for initiation likely at lower dose DM- home insulin noted to be 70 units, he states he wasn't taking it all the time bc he thought it was too high a dose, here he required only 5 units + some ssi, discussed with pt in detail, 10 units lantus qhs upon dc and he will records bs and take to pcp visit this week dispo will be to home with [facility] , he did not require oxygen on dc time spent on dc 45 min
--- NOTE | 2019-01-21 14:17 | Discharge Summary ---
<Selvin Ewing - Last Filed: 01/21/19 14:52> - NOTES TO OUTPATIENT PROVIDER Notes to Outpatient Provider: Patient will require outpatient follow-up 2-4 weeks posthospitalization. Patient will also benefit from outpatient referral to nephrology in the setting of declining GFR and rising creatinine. Date of Encounter: 01/21/19 Time of Encounter: 09:48 - Discharge Diagnosis (1) CHF exacerbation Priority: Primary Status: Resolved Qualifiers: Heart failure type: diastolic Qualified Code(s): I50.33 - Acute on chronic diastolic (congestive) heart failure (2) CKD (chronic kidney disease) Priority: Secondary Status: Chronic Qualifiers: Qualified Code(s): N18.9 - Chronic kidney disease, unspecified (3) Atrial fibrillation Priority: Secondary Status: Acute Qualifiers: Qualified Code(s): I48.91 - Unspecified atrial fibrillation (4) Anemia Priority: Secondary Status: Chronic Qualifiers: Anemia type: unspecified type Qualified Code(s): D64.9 - Anemia, unspecified (5) Diabetes Priority: Secondary Status: Chronic Qualifiers: Diabetes mellitus type: type 2 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 Burnett is a 83 year old male with a PMH of atrial fibrillation s/p pacemaker placement on coumadin, CAD s/p MO, DM, HLD, HTN who presented to [facility] ED on 01/10 with chief complaint of exertional dyspnea. He was only able to walk a short distance before because of short of breath. Vital signs on arrival were WNL. Labs showed elevated troponin at 0.08, which appears to be baseline. EKG showed no signs of ischemia. Creatinine was elevated at 1.74. CXR showed cardiomegaly with pulmonary edema and pleural effusions and a dense L basilar opacity. He was given a one-time dose of Lasix and a loading dose of ASA in the ED. On exam, he had bibasilar crackles and +2 pitting edema in the LEs b/l. He was admitted for CHF exacerbation. He was started on Lasix 40 mg IV daily, supplemental O2, and PRN Duonebs. Despite the use of IV diuresis, patient still had persistent shortness of breath after admission. His lower extremity edema improved, but he was still requiring supplemental O2. Due to declining respiratory status, a CXR was performed on 01/17/19, which demonstrate mild pulmonary vascular congestion, stable mild cardiomegaly, and bilateral pleural effusions, moderate to large on the left, and moderate on the right, both of which were increased in size compared to prior study. Decision was made to perform thoracentesis. In preparation for his thoracentesis, patients supratherapeutic INR needed to be reversed with vitamin K. Procedure was performed on 01/18/19. 950 mL were drained from both the left and the right. After this, his respiratory status significantly improved. During the course of his hospitalization, his lower extremity edema and respiratory status began to improve. A 6 minute walk test on 01/21 showed that he did not qualify for oxygen; patient did not desaturate. Due to patients underlying kidney disease with an increased dose of diuretics, patient will likely benefit from outpatient referral to nephrology. Per chart review, his GFR has been steadily declining over the past year. Disposition will be to [facility]. He will be discharged on 40 mg Lasix by mouth twice a day. Lisinopril is being held due to elevated creatinine. His coumadin has been resumed. Home health agency will perform an INR check in 2 days. The results of this will be forwarded to nurse practitioner Clark and Dr. Tapia. He is also being discharged with a lower dose of bedtime insulin. He is instructed to only take 10 units at bedtime insulin until his appointment in the outpatient setting. - Time Spent with Patient Total time spent providing and/or coordinating discharge services: - Discharge Medications Prescriptions: Continued Warfarin [Coumadin] 1 mg PO DAILY Furosemide [Lasix] 40 mg PO DAILY Finasteride [Proscar] 5 mg PO DAILY Omeprazole [PriLOSEC] 20 mg PO DAILY Magnesium Oxide [Magnesium] 400 mg PO BID Tamsulosin [Flomax] 0.8 mg PO HS Simvastatin [Zocor] 40 mg PO HS Metoprolol [Lopressor] 25 mg PO BID #0 Levothyroxine Sodium [Tirosint] 25 mcg PO QAM Loratadine [Claritin] 10 mg PO DAILY Ergocalciferol (VITAMIN D2) [Vitamin D2] 50,000 unit PO MO Changed Insulin Glargine,Hum.rec.anlog [Lantus Solostar] 10 unit SQ DAILY #0 Discontinued Lisinopril [Zestril] 10 mg PO BID Home Medications: Finasteride [Proscar] 5 mg PO DAILY 04/27/15 [History] Furosemide [Lasix] 40 mg PO DAILY 04/27/15 [History] Magnesium Oxide [Magnesium] 400 mg PO BID 04/27/15 [History] Omeprazole [PriLOSEC] 20 mg PO DAILY 04/27/15 [History] Simvastatin [Zocor] 40 mg PO HS 04/27/15 [History] Tamsulosin [Flomax] 0.8 mg PO HS 04/27/15 [History] Warfarin [Coumadin] 1 mg PO DAILY 04/27/15 [History] Levothyroxine Sodium [Tirosint] 25 mcg PO QAM 06/28/18 [History] Ergocalciferol (VITAMIN D2) [Vitamin D2] 50,000 unit PO MO 01/03/19 [History] Loratadine [Claritin] 10 mg PO DAILY 01/03/19 [History] Metoprolol [Lopressor] 25 mg PO BID #0 01/05/19 [Rx] Insulin Glargine,Hum.rec.anlog [Lantus Solostar] 10 unit SQ DAILY #0 01/21/19 [Rx] Allergies/Adverse Reactions: Allergy/AdvReac Type Severity Reaction Status Date / Time No Known Allergies Allergy Verified 01/10/19 22:32 Date of admission: 01/12/19 17:06 Primary care physician: Farhad Rodas CNP Consults: 01/11/19 08:41 Consult to Nurse Navigator [CONS] Routine Comment: CHF 01/13/19 12:42 Consult to Occupational Therapy [CONS] Routine Comment: Evaluate, develop and implement POC Reason for Consult: Evaluate, develop and implement POC Does patient have active BEDREST order?: No Is patient medically & hemodynamically stable?: Yes Consult to Physical Therapy [CONS] Routine Comment: Evaluate, develop and implement POC Reason for Consult: dispo planning Does patient have active BEDREST order?: No Is patient medically & hemodynamically stable?: Yes 01/14/19 12:02 Consult to Sports Manager [CONS] Routine Reason for SW Consult: oxygen 01/18/19 07:00 Consult to Interventional Radiology [CONS] Routine Consulting Provider: Radiology Interventional Cols Reason for Consult: evaluation for bilateral thoracentesis Time Notified: 11:56 Call Completed: Yes Discharging clinician: Selvin Ewing Anticipated date of discharge: 01/21/19 - Constitutional Vitals: Temp Pulse Resp BP Pulse Ox 98.0 F 64 16 108/65 95 01/21/19 07:29 01/21/19 07:29 01/21/19 07:29 01/21/19 07:29 01/21/19 07:29 Exam: General: Conversant, no acute distress Head: atraumatic, normocephalic Eye: PERRL, EOMI Neck: Supple, trachea midline Respiratory: Diminished breath sounds b/l; bibasilar crackles; no rales or rhonc hi Cardiovascular: RRR, +S1, +S2; no murmurs, rubs, gallops Abdomen: Soft, nontender Extremities: Trace b/l lower extremity edema Neurological: No focal deficits Psychiatric: Normal affect, normal mood Skin: Dry, intact - Patient Status Disposition: Home Health Service Condition: Good - Discharge Instructions Instructions: Heart Failure (DC), Thoracentesis (DC), Meal Planning with Diabetes Exchanges (DC), Low Sodium Diet (DC) Follow Up With: [facility] [Provider Group] Farhad Rodas CNP [Primary Care Provider] - 01/25/19 9:20 am Additional Instructions: YOU WERE TREATED FOR FLUID OVERLOAD IN THE LEGS AND LUNGS THAT IS MOST LIKELY DUE TO YOUR HEART DISEASE You were treated with Lasix to help remove fluid, as well as had fluid drained from the lungs. CONTINUE LASIX 40 MG DAILY BY MOUTH AT HOME. LASIX CAN INJURE THE KIDNEYS AND YOUR KIDNEYS NEED CLOSELY MONITORED. WE RECOMMEND THAT YOU FOLLOW UP WITH THE KIDNEY DOCTOR FOR EVAL OF YOUR PRIOR EVIDENCE OF POSSIBLE KIDNEY DISEASE. A referral has been made as we discussed and they should call you with appointment date and time. -in the meantime, we will have the home health agency collect a repeat renal function test this week and forward results to INTELLECTUAL PROPERTY LEGAL ASSISTANT Clark -hold lisinopril 10 mg 2x daily until you see INTELLECTUAL PROPERTY LEGAL ASSISTANT Clark. it too can affect the kidneys and your blood pressure would be too low with it currently. Wait for Dr Rodas to instruct you if you should take it or not Your coumadin level was high and needed reversed with Vitamin K so that you could have fluid drained from your lungs Your INR at discharge is near goal (currently 1.7, goal is 2) CONTINUE COUMADIN 1MG DAILY IN THE EVENING -we will have home health agency check an INR in 2 days and forward to JOCE Rodas and Dr Tapia. They will also check your blood counts due to your chronic anemia while being on blood thinner. YOUR INSULIN DOSE HAS CHANGED YOU REQUIRED VERY LOW DOSES OF YOUR HOME INSULIN WHILE YOU WERE HERE STOP LANTUS 70 UNITS AT BEDTIME TAKE ONLY10 UNITS AT BEDTIME UNTIL YOU SEE JOCE RODAS Check your blood sugar 3 times a day before meals and record numbers. Take this to your appointment with JOCE Rodas later this week - Diet and Activity Activity: increase activity as tolerated Diet: advance to your usual diet, diabetic diet, low salt diet <Ofelia Shaikh - Last Filed: 01/21/19 15:30> Date of Encounter: 01/21/19 - Discharge Diagnosis (1) CHF exacerbation Status: Resolved Qualifiers: Heart failure type: diastolic Qualified Code(s): I50.33 - Acute on chronic diastolic (congestive) heart failure (2) Atrial fibrillation Status: Chronic Qualifiers: Atrial fibrillation type: persistent (3) Diabetes Status: Chronic Qualifiers: Diabetes mellitus type: type 2 Diabetes mellitus intermediate insulin use: with intermediate use Diabetes mellitus complication status: with hyperglycemia Qualified Code(s): E11.65 - Type 2 diabetes mellitus with hyperglycemia; Z79.4 - long term (current) use of insulin (4) CAD (coronary artery disease) Status: Acute (5) CKD (chronic kidney disease) Status: Chronic Qualifiers: Qualified Code(s): N18.9 - Chronic kidney disease, unspecified (6) Iron (Fe) deficiency anemia Status: Chronic (7) Thrombocytopenia Status: Chronic Hospital course: Mr. Burnett is a 83 year old male - Time Spent with Patient Total time spent providing and/or coordinating discharge services: Date of admission: 01/12/19 17:06 Primary care physician: Farhad Rodas, TIMOTHY Consults: 01/11/19 08:41 Consult to Nurse Navigator [CONS] Routine Comment: CHF 01/13/19 12:42 Consult to Occupational Therapy [CONS] Routine Comment: Evaluate, develop and implement POC Reason for Consult: Evaluate, develop and implement POC Does patient have active BEDREST order?: No Is patient medically & hemodynamically stable?: Yes Consult to Physical Therapy [CONS] Routine Comment: Evaluate, develop and implement POC Reason for Consult: dispo planning Does patient have active BEDREST order?: No Is patient medically & hemodynamically stable?: Yes 01/14/19 12:02 Consult to Sports Manager [CONS] Routine Reason for SW Consult: oxygen 01/18/19 07:00 Consult to Interventional Radiology [CONS] Routine Consulting Provider: Radiology Interventional Cols Reason for Consult: evaluation for bilateral thoracentesis Time Notified: 11:56 Call Completed: Yes - Constitutional Vitals: Temp Pulse Resp BP Pulse Ox 98.0 F 64 16 108/65 95 01/21/19 07:29 01/21/19 07:29 01/21/19 07:29 01/21/19 07:29 01/21/19 07:29 - Attending Attestation I examined this patient and my medical decision-making was reviewed with the Resident Physician Selvin. I agree with the documented findings, disposition and treatment plan as described except to the extent set forth below. Mr Burnett is admitted with CHF exacerbation and acute hypoxic resp failure awake,feeling well, no sob on room air gen- alert, awake,appears stated age cv- reg rate and rhythm, normal s1,s2, trace pitting edema lungs- ctabl, , diminished bl bases no crackles, norm resp effort on room air neuro- AAOx3 Acute HFpEF ( last echo end of december 2018, trop at admit 0.09 and his baseline) -po lasix 40 mg daily given looking near euvolemic and with kidney disease, refer to nephro on dc for management of HCF in setting of kidney disease Supratherapeutic INR without bleeding, required reversal for IR thoracentesis/ now subtherapeutic-INR 1.7, cont home couamdin on dc and NR check in 2 days ordered w home helath and noted to be sent to Farhad Rodas CNP and Dr Tapia CKD stage unknown, with creat at his recent december baseline- outpt nephro follow up Chronic anemia and thrombocytopenia- fu outpt with pcp CAD hx- holding home acei as bps were running low normotensive this admit, 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
[2019-01-21] MEDS ORDERED: *HR* Warfarin 1 MG TABLET PO ONE (18:00)
== END 2019-01-21 13:33 | disposition home health service (06) | DRG 291 ==
LOC: 3BNU 10:46 → EMEROOARM 10:46 → SUATTDRO 15:05 → 3BNU 16:10 → SUATTDRO 01-12 17:06
PROVIDERS: ADMIT Pharmacist; ATTEND Internal Medicine

== ENCOUNTER 2019-01-29 12:06 | Inpatient (IN) ==
[2019-01-29 14:38] LABS: Basophils % 0.4 %; Eosinophils # 0.1 K/mcL (0.0-0.6); Eosinophils % 1.3 %; Hematocrit 29.1 % (37.5-50.1); Hemoglobin 9.4 g/dL (12.9-16.9); Immature Granulocytes % 0.5 % (0-4); Lymphocytes # 0.8 K/mcL (0.6-4.6); Lymphocytes % 13.4 %; Mean Corpuscular HGB Conc 32.3 g/dL (31.6-35.5); Mean Corpuscular Hemoglobin 28.5 pg (28.0-33.3); Mean Corpuscular Volume 88.2 fL (83.0-100.0); Monocytes # 0.5 K/mcL (0.0-1.3); Monocytes % 8.8 %; Neutrophils # 4.2 K/mcL (1.6-8.9); Platelet Count 104 K/mcL (140-400); Red Cell Distribution Width 15.7 % (11.5-14.5); Segmented Neutrophils % 75.6 %; White Blood Count 5.6 K/mcL (4.3-11.1)
[2019-01-29 15:05] LABS: Calcium 8.2 mg/dL (8.6-10.3); Potassium 3.9 mEq/L (3.5-5.1); Troponin I 0.13 ng/mL (< 0.04)
[2019-01-29] MEDS ORDERED: Aspirin 325 MG TABLET PO ONE (15:14)
[2019-01-29] MEDS ORDERED: Furosemide 40 MG/4 ML VIAL IVP ONE (15:14)
[2019-01-29 15:37] LABS: INR 4.1
[2019-01-29 15:46] LABS: Prothrombin Time 46.3 Seconds (9.4-12.1)
[2019-01-29] MEDS ORDERED: Naloxone 0.4 MG/ML INJ IVP PRN (17:41)
[2019-01-29] MEDS ORDERED: D5% in Water 1,000 ML IVC PRN (18:33)
[2019-01-29] MEDS ORDERED: Dextrose Gel 15 GM/37.5 ML TUBE PO PRN ×2 (18:33)
[2019-01-29] MEDS ORDERED: *HR* Dextrose 50 % in Water (Syg) 50 ML SYRINGE IVP PRN (18:33)
[2019-01-29] MEDS: Magnesium Oxide 400 MG TABLET PO SCH (19:47)
[2019-01-29] MEDS: Insulin LISPRO 300 UNITS/3 ML VIAL SQ SCH ×2 (19:49→19:53)
[2019-01-30 00:07] LABS: Bilirubin,Urine Negative (Negative); Blood,Urine Negative (Negative); Clarity,Urine Clear (Clear); Color,Urine Yellow (Yellow); Glucose,Urine (UA) Normal (Normal); Ketones,Urine Negative (Negative); Leukocyte Esterase,Urine Negative (Negative); Nitrite,Urine Negative (Negative); PH,Urine 5.5 pH Units (5.0-8.0); Protein,Urine Negative (Neg-Trace); Specific Gravity,Urine 1.016 (1.010-1.025); Urobilinogen,Urine Normal (Normal)
[2019-01-30 01:25] LABS: Troponin I 0.14 ng/mL (< 0.04)
[2019-01-30 05:04] LABS: Basophils % 0.4 %; Eosinophils # 0.1 K/mcL (0.0-0.6); Eosinophils % 1.9 %; Hematocrit 31.9 % (37.5-50.1); Immature Granulocytes % 0.2 % (0-4); Lymphocytes % 18.8 %; Mean Corpuscular HGB Conc 31.3 g/dL (31.6-35.5); Mean Corpuscular Hemoglobin 28.4 pg (28.0-33.3); Mean Corpuscular Volume 90.6 fL (83.0-100.0); Mean Platelet Volume 10.7 fL (9.4-12.4); Monocytes # 0.5 K/mcL (0.0-1.3); Monocytes % 8.7 %; Neutrophils # 3.6 K/mcL (1.6-8.9); Platelet Count 108 K/mcL (140-400); Red Blood Count 3.52 M/mcL (4.19-5.50); Red Cell Distribution Width 15.9 % (11.5-14.5); White Blood Count 5.2 K/mcL (4.3-11.1)
[2019-01-30 05:10] LABS: INR 4.1
[2019-01-30 05:18] LABS: Prothrombin Time 46.7 Seconds (9.4-12.1)
[2019-01-30 05:39] LABS: Calcium 8.4 mg/dL (8.6-10.3); Potassium 3.9 mEq/L (3.5-5.1)
[2019-01-30] MEDS ORDERED: Levothyroxine 25 MCG TABLET PO SCH (06:30)
[2019-01-30 07:11] LABS: Troponin I 0.13 ng/mL (< 0.04)
[2019-01-30] MEDS ORDERED: Insulin DETEMIR 100 UNIT/ML X5UNITS SQ SCH (09:00)
[2019-01-30] MEDS ORDERED: Furosemide 40 MG/4 ML VIAL IVP SCH (09:00)
[2019-01-30 09:34] LABS: Albumin 3.1 g/dL (3.5-5.7); Albumin/Globulin Ratio 1.1 (1.1-2.2); Bilirubin,Direct 0.2 mg/dL (0.0-0.2); Bilirubin,Indirect 0.5 mg/dL (0.0-1.2); Bilirubin,Total 0.7 mg/dL (0.3-1.0); Globulin 2.8 g/dL (2.4-3.5); Total Protein 5.9 g/dL (6.4-8.9)
[2019-01-30] MEDS: Finasteride 5 MG TABLET PO SCH (09:36)
[2019-01-30] MEDS: Loratadine 10 MG TABLET PO SCH (09:37)
[2019-01-30] MEDS: Magnesium Oxide 400 MG TABLET PO SCH ×2 (09:37→20:20)
[2019-01-30] MEDS: Insulin LISPRO 300 UNITS/3 ML VIAL SQ SCH ×4 (09:41→20:15)
[2019-01-30] MEDS ORDERED: Warfarin perPT PO PRN (18:00)
[2019-01-31] MEDS: Levothyroxine 25 MCG TABLET PO SCH (06:18)
[2019-01-31 06:26] LABS: INR 4.3
[2019-01-31 06:41] LABS: Prothrombin Time 48.5 Seconds (9.4-12.1)
[2019-01-31 07:30] LABS: Calcium 8.1 mg/dL (8.6-10.3); Potassium 3.9 mEq/L (3.5-5.1)
[2019-01-31] MEDS ORDERED: Insulin DETEMIR 100 UNIT/ML X5UNITS SQ SCH (09:00)
[2019-01-31] MEDS: Insulin LISPRO 300 UNITS/3 ML VIAL SQ SCH ×4 (09:30→20:37)
[2019-01-31] MEDS: Aspirin Enteric Coated 81 MG Tablet PO SCH (09:31)
[2019-01-31] MEDS: Loratadine 10 MG TABLET PO SCH (09:31)
[2019-01-31] MEDS: Magnesium Oxide 400 MG TABLET PO SCH ×2 (09:32→20:36)
[2019-01-31] MEDS: Finasteride 5 MG TABLET PO SCH (09:32)
[2019-01-31 10:04] LABS: Bilirubin,Urine Negative (Negative); Blood,Urine Negative (Negative); Clarity,Urine Clear (Clear); Color,Urine Yellow (Yellow); Glucose,Urine (UA) Normal (Normal); Ketones,Urine Negative (Negative); Leukocyte Esterase,Urine Negative (Negative); Nitrite,Urine Negative (Negative); PH,Urine 5.5 pH Units (5.0-8.0); Protein,Urine 30 mg/dL (Neg-Trace); Specific Gravity,Urine 1.015 (1.010-1.025); Urobilinogen,Urine Normal (Normal)
[2019-01-31 10:06] LABS: Bacteria,Urine None Seen per hpf (None-Few); Squamous Epithelial Cell,Urine Few per lpf (None-Few); WBC,Urine 0-3 per hpf (0-3)
[2019-01-31] MEDS: Furosemide 40 MG TABLET PO SCH (11:25)
[2019-02-01 04:49] LABS: Eosinophils % 1.8 %; Red Cell Distribution Width 15.7 % (11.5-14.5)
[2019-02-01 04:51] LABS: Basophils % 0.4 %; Eosinophils # 0.1 K/mcL (0.0-0.6); Hematocrit 28.9 % (37.5-50.1); Hemoglobin 9.4 g/dL (12.9-16.9); Immature Granulocytes % 0.4 % (0-4); Immature Platelets 5.7 % (1.1-6.1); Lymphocytes # 0.6 K/mcL (0.6-4.6); Lymphocytes % 13.1 %; Mean Corpuscular HGB Conc 32.5 g/dL (31.6-35.5); Mean Corpuscular Hemoglobin 29.1 pg (28.0-33.3); Mean Corpuscular Volume 89.5 fL (83.0-100.0); Mean Platelet Volume 10.9 fL (9.4-12.4); Monocytes # 0.4 K/mcL (0.0-1.3); Monocytes % 9.6 %; Neutrophils # 3.4 K/mcL (1.6-8.9); Red Blood Count 3.23 M/mcL (4.19-5.50); Segmented Neutrophils % 74.7 %; White Blood Count 4.5 K/mcL (4.3-11.1)
[2019-02-01 04:53] LABS: Platelet Count 86 K/mcL (140-400)
[2019-02-01 05:00] LABS: Calcium 8.1 mg/dL (8.6-10.3); Potassium 4.3 mEq/L (3.5-5.1); Prothrombin Time 50.3 Seconds (9.4-12.1)
[2019-02-01 05:01] LABS: INR 4.4
[2019-02-01] MEDS: Aspirin Enteric Coated 81 MG Tablet PO SCH (08:53)
[2019-02-01] MEDS: Magnesium Oxide 400 MG TABLET PO SCH ×2 (08:53→21:06)
[2019-02-01] MEDS: Loratadine 10 MG TABLET PO SCH (08:53)
[2019-02-01] MEDS: Furosemide 40 MG TABLET PO SCH (08:53)
[2019-02-01] MEDS: Levothyroxine 25 MCG TABLET PO SCH (08:53)
[2019-02-01] MEDS: Finasteride 5 MG TABLET PO SCH (08:53)
[2019-02-01] MEDS: Insulin LISPRO 300 UNITS/3 ML VIAL SQ SCH ×4 (08:55→21:06)
[2019-02-01] MEDS ORDERED: Insulin DETEMIR 100 UNIT/ML X5UNITS SQ SCH (21:00)
[2019-02-02 02:22] LABS: INR 3.1; Prothrombin Time 35.6 Seconds (9.4-12.1)
[2019-02-02 02:25] LABS: Calcium 8.3 mg/dL (8.6-10.3); Potassium 4.1 mEq/L (3.5-5.1)
[2019-02-02] MEDS: Levothyroxine 25 MCG TABLET PO SCH (05:59)
[2019-02-02] MEDS: Finasteride 5 MG TABLET PO SCH (09:14)
[2019-02-02] MEDS: Magnesium Oxide 400 MG TABLET PO SCH (09:14)
[2019-02-02] MEDS: Insulin LISPRO 300 UNITS/3 ML VIAL SQ SCH ×2 (09:14→12:13)
[2019-02-02] MEDS: Loratadine 10 MG TABLET PO SCH (09:15)
[2019-02-02] MEDS: Furosemide 40 MG TABLET PO SCH (09:15)
[2019-02-02] MEDS: Aspirin Enteric Coated 81 MG Tablet PO SCH (09:15)
[2019-02-02] MEDS ORDERED: Metoprolol XL (24 HR) Succ 50 MG TAB.ER.24H PO SCH (10:30)
[2019-02-02 11:52] VITALS: BP 100/60
[2019-02-02] MEDS ORDERED: *HR* Warfarin 1 MG TABLET PO ONE (18:00)
[2019-02-04] MEDS ORDERED: Ergocalciferol (VIT D2) 50,000 UNIT (1.25MG) CAP PO SCH (09:00)
== END 2019-02-02 15:21 | disposition home health service (06) | DRG 291 ==
LOC: EMEROOARM 12:06 → 3BNU 12:06 → SUATTDRO 16:52 → 3BNU 17:19
PROVIDERS: ADMIT Internal Medicine; ATTEND Internal Medicine

== ENCOUNTER 2019-02-04 21:58 | Inpatient (IN) ==
[2019-02-04 23:21] LABS: Hematocrit 31.9 % (37.5-50.1); Hemoglobin 10.8 g/dL (12.9-16.9); Immature Granulocytes % 0.4 % (0-4); Lymphocytes % 12.9 %; Mean Corpuscular HGB Conc 33.9 g/dL (31.6-35.5); Mean Corpuscular Hemoglobin 29.4 pg (28.0-33.3); Mean Corpuscular Volume 86.9 fL (83.0-100.0); Mean Platelet Volume 10.6 fL (9.4-12.4); Platelet Count 121 K/mcL (140-400); Red Blood Count 3.67 M/mcL (4.19-5.50); Red Cell Distribution Width 15.6 % (11.5-14.5); Segmented Neutrophils % 77.3 %; White Blood Count 5.5 K/mcL (4.3-11.1)
[2019-02-04 23:22] LABS: Basophils % 0.4 %; Eosinophils # 0.1 K/mcL (0.0-0.6); Eosinophils % 1.6 %; Lymphocytes # 0.7 K/mcL (0.6-4.6); Monocytes # 0.4 K/mcL (0.0-1.3); Monocytes % 7.4 %; Neutrophils # 4.3 K/mcL (1.6-8.9)
[2019-02-04 23:33] LABS: INR 2.4; Prothrombin Time 27.1 Seconds (9.4-12.1)
[2019-02-04 23:40] LABS: Calcium 8.4 mg/dL (8.6-10.3); Potassium 3.9 mEq/L (3.5-5.1)
[2019-02-04 23:46] LABS: Troponin I 0.14 ng/mL (< 0.04)
[2019-02-04] MEDS ORDERED: Furosemide 40 MG/4 ML VIAL IVP STA (23:59)
[2019-02-05] MEDS ORDERED: Naloxone 0.4 MG/ML INJ IVP PRN (04:36)
[2019-02-05 06:51] LABS: Protein/Creatinine Ratio,Urine 0.27 mg/mg (0.00-0.20)
[2019-02-05 06:56] LABS: Bilirubin,Urine Negative (Negative); Blood,Urine Moderate (Negative); Clarity,Urine Clear (Clear); Color,Urine Yellow (Yellow); Glucose,Urine (UA) Normal (Normal); Ketones,Urine Negative (Negative); Leukocyte Esterase,Urine Small (Negative); Nitrite,Urine Negative (Negative); PH,Urine 5.5 pH Units (5.0-8.0); Protein,Urine Trace mg/dL (Neg-Trace); Specific Gravity,Urine 1.017 (1.010-1.025); Urobilinogen,Urine Normal (Normal)
[2019-02-05 06:59] LABS: Bacteria,Urine None Seen per hpf (None-Few); Hyaline Casts,Urine Few per lpf (None-Few); RBC,Urine 30-50 per hpf (0-3); Squamous Epithelial Cell,Urine Many per lpf (None-Few); WBC,Urine 0-3 per hpf (0-3)
[2019-02-05] MEDS: Metoprolol XL (24 HR) Succ 50 MG TAB.ER.24H PO SCH (08:53)
[2019-02-05] MEDS: Aspirin Enteric Coated 81 MG Tablet PO SCH (08:53)
[2019-02-05] MEDS: Finasteride 5 MG TABLET PO SCH (08:53)
[2019-02-05] MEDS ORDERED: Furosemide 40 MG TABLET PO SCH (09:00)
[2019-02-05 09:42] LABS: INR 2.2; Prothrombin Time 25.3 Seconds (9.4-12.1)
[2019-02-05 13:55] LABS: Albumin 3.2 g/dL (3.5-5.7); Albumin/Globulin Ratio 1.1 (1.1-2.2); Bilirubin,Direct 0.2 mg/dL (0.0-0.2); Bilirubin,Indirect 0.5 mg/dL (0.0-1.0); Bilirubin,Total 0.7 mg/dL (0.3-1.0); Globulin 2.9 g/dL (2.4-3.5); Total Protein 6.1 g/dL (6.4-8.9)
[2019-02-05] MEDS ORDERED: D5% in Water 1,000 ML IVC PRN (15:57)
[2019-02-05] MEDS ORDERED: Dextrose Gel 15 GM/37.5 ML TUBE PO PRN ×2 (15:57)
[2019-02-05] MEDS ORDERED: *HR* Dextrose 50 % in Water (Syg) 50 ML SYRINGE IVP PRN (15:57)
[2019-02-05] MEDS: Insulin LISPRO 300 UNITS/3 ML VIAL SQ SCH (16:55)
[2019-02-05] MEDS: Furosemide 40 MG/4 ML VIAL IVP SCH (17:24)
[2019-02-05] MEDS ORDERED: *HR* Warfarin 1 MG TABLET PO ONE (18:00)
[2019-02-05] MEDS ORDERED: Warfarin perPT PO PRN (18:00)
[2019-02-05] MEDS: Insulin DETEMIR 100 UNIT/ML X5UNITS SQ SCH (18:26)
[2019-02-06 08:09] LABS: Basophils % 0.5 %; Eosinophils # 0.1 K/mcL (0.0-0.6); Eosinophils % 1.6 %; Hematocrit 29.9 % (37.5-50.1); Hemoglobin 10.1 g/dL (12.9-16.9); Immature Granulocytes % 0.5 % (0-4); Immature Platelets 3.6 % (1.1-6.1); Lymphocytes # 0.6 K/mcL (0.6-4.6); Lymphocytes % 12.4 %; Mean Corpuscular HGB Conc 33.8 g/dL (31.6-35.5); Mean Corpuscular Hemoglobin 29.6 pg (28.0-33.3); Mean Corpuscular Volume 87.7 fL (83.0-100.0); Mean Platelet Volume 10.1 fL (9.4-12.4); Monocytes # 0.3 K/mcL (0.0-1.3); Monocytes % 7.7 %; Neutrophils # 3.4 K/mcL (1.6-8.9); Red Blood Count 3.41 M/mcL (4.19-5.50); Red Cell Distribution Width 15.6 % (11.5-14.5); Segmented Neutrophils % 77.3 %; White Blood Count 4.4 K/mcL (4.3-11.1)
[2019-02-06 08:12] LABS: Platelet Count 80 K/mcL (140-400)
[2019-02-06] MEDS: Insulin LISPRO 300 UNITS/3 ML VIAL SQ SCH ×3 (08:19→17:11)
[2019-02-06 08:20] LABS: INR 2.5; Prothrombin Time 28.7 Seconds (9.4-12.1)
[2019-02-06 08:24] LABS: Estimated Average Glucose 151 mg/dl
[2019-02-06] MEDS: Furosemide 40 MG/4 ML VIAL IVP SCH ×2 (08:24→17:18)
[2019-02-06] MEDS: Finasteride 5 MG TABLET PO SCH (08:24)
[2019-02-06] MEDS: Aspirin Enteric Coated 81 MG Tablet PO SCH (08:24)
[2019-02-06] MEDS: Metoprolol XL (24 HR) Succ 50 MG TAB.ER.24H PO SCH (08:24)
[2019-02-06 08:26] LABS: Albumin/Globulin Ratio 1.1 (1.1-2.2); Bilirubin,Total 0.7 mg/dL (0.3-1.0); Calcium 8.2 mg/dL (8.6-10.3); Chol/HDL Ratio 1.9 (0-4.9); Globulin 2.8 g/dL (2.4-3.5); Magnesium 2.4 mg/dL (1.6-2.6); Phosphorous 3.2 mg/dL (2.7-4.5); Potassium 3.9 mEq/L (3.5-5.1); Total Protein 5.8 g/dL (6.4-8.9)
[2019-02-06] MEDS ORDERED: Albumin 25% 25gram/100mL 25 GM/100 ML IV.SOLN IVPB SCH (15:00)
[2019-02-06] MEDS: Albumin 25% 25gram/100mL 25 GM/100 ML IV.SOLN IVPB SCH (15:30)
[2019-02-06] MEDS: Insulin DETEMIR 100 UNIT/ML X5UNITS SQ SCH (17:18)
[2019-02-06] MEDS ORDERED: *HR* Warfarin 1 MG TABLET PO ONE (18:00)
[2019-02-07 05:23] LABS: INR 2.5; Prothrombin Time 28.4 Seconds (9.4-12.1)
[2019-02-07 05:36] LABS: Calcium 8.4 mg/dL (8.6-10.3); Potassium 3.7 mEq/L (3.5-5.1)
[2019-02-07] MEDS: Albumin 25% 25gram/100mL 25 GM/100 ML IV.SOLN IVPB SCH ×2 (05:52→15:33)
[2019-02-07] MEDS: Insulin LISPRO 300 UNITS/3 ML VIAL SQ SCH ×3 (08:24→16:09)
[2019-02-07] MEDS: Aspirin Enteric Coated 81 MG Tablet PO SCH (08:29)
[2019-02-07] MEDS: Finasteride 5 MG TABLET PO SCH (08:29)
[2019-02-07] MEDS: Furosemide 40 MG/4 ML VIAL IVP SCH ×2 (08:30→17:35)
[2019-02-07] MEDS: Metoprolol XL (24 HR) Succ 50 MG TAB.ER.24H PO SCH (08:30)
[2019-02-07] MEDS: Insulin DETEMIR 100 UNIT/ML X5UNITS SQ SCH (17:35)
[2019-02-07] MEDS ORDERED: *HR* Warfarin 1 MG TABLET PO ONE (18:00)
[2019-02-08 05:37] LABS: INR 2.7; Prothrombin Time 31.2 Seconds (9.4-12.1)
[2019-02-08 07:25] LABS: Calcium 8.4 mg/dL (8.6-10.3); Potassium 3.6 mEq/L (3.5-5.1)
[2019-02-08] MEDS: Finasteride 5 MG TABLET PO SCH (09:42)
[2019-02-08] MEDS: Bumetanide 1 MG/4 ML VIAL IVP SCH ×2 (09:42→17:24)
[2019-02-08] MEDS: Insulin LISPRO 300 UNITS/3 ML VIAL SQ SCH ×3 (09:42→17:25)
[2019-02-08] MEDS: Aspirin Enteric Coated 81 MG Tablet PO SCH (09:42)
[2019-02-08] MEDS: Metoprolol XL (24 HR) Succ 50 MG TAB.ER.24H PO SCH (09:42)
[2019-02-08] MEDS: Insulin DETEMIR 100 UNIT/ML X5UNITS SQ SCH (17:25)
[2019-02-08] MEDS ORDERED: *HR* Warfarin 1 MG TABLET PO ONE (18:00)
[2019-02-09 07:01] LABS: Hemoglobin 10.2 g/dL (12.9-16.9); Mean Corpuscular Hemoglobin 29.8 pg (28.0-33.3); Mean Corpuscular Volume 87.7 fL (83.0-100.0); Red Blood Count 3.42 M/mcL (4.19-5.50); Red Cell Distribution Width 15.5 % (11.5-14.5)
[2019-02-09 07:02] LABS: Platelet Count 85 K/mcL (140-400)
[2019-02-09 07:09] LABS: INR 2.7; Prothrombin Time 30.9 Seconds (9.4-12.1)
[2019-02-09] MEDS ORDERED: Albumin 25% 25gram/100mL 25 GM/100 ML IV.SOLN ONE (17:31)
[2019-02-09] MEDS ORDERED: *HR* Warfarin 1 MG TABLET ONE (17:35)
[2019-02-09 20:12] LABS: Albumin 3.5 g/dL (3.5-5.7); Albumin/Globulin Ratio 1.5 (1.1-2.2); Bilirubin,Total 0.7 mg/dL (0.3-1.0); Calcium 8.4 mg/dL (8.6-10.3); Globulin 2.4 g/dL (2.4-3.5); Potassium 3.9 mEq/L (3.5-5.1); Total Protein 5.9 g/dL (6.4-8.9)
[2019-02-10] MEDS: Insulin LISPRO 300 UNITS/3 ML VIAL SQ SCH ×6 (00:05→17:14)
[2019-02-10] MEDS: Aspirin Enteric Coated 81 MG Tablet PO SCH ×2 (00:08→09:58)
[2019-02-10] MEDS: Bumetanide 1 MG/4 ML VIAL IVP SCH ×2 (00:08→09:58)
[2019-02-10] MEDS: Finasteride 5 MG TABLET PO SCH ×2 (00:08→09:58)
[2019-02-10] MEDS: Metoprolol XL (24 HR) Succ 50 MG TAB.ER.24H PO SCH ×2 (00:09→09:58)
[2019-02-10] MEDS: Insulin DETEMIR 100 UNIT/ML X5UNITS SQ SCH ×2 (00:09→17:14)
[2019-02-10 03:54] LABS: INR 2.8; Prothrombin Time 31.9 Seconds (9.4-12.1)
[2019-02-10 08:19] LABS: Calcium 8.4 mg/dL (8.6-10.3); Potassium 3.9 mEq/L (3.5-5.1)
[2019-02-10] MEDS: Furosemide 40 MG/4 ML VIAL IVP SCH (10:07)
[2019-02-10] MEDS ORDERED: *HR* Warfarin 1 MG TABLET PO SCH (18:00)
[2019-02-10] MEDS: Sennosides/Docusate Sodium TABLET PO SCH (23:49)
[2019-02-11 06:54] LABS: INR 2.5; Prothrombin Time 28.4 Seconds (9.4-12.1)
[2019-02-11 06:56] LABS: Red Cell Distribution Width 15.6 % (11.5-14.5)
[2019-02-11 06:58] LABS: Hematocrit 30.6 % (37.5-50.1); Hemoglobin 10.3 g/dL (12.9-16.9); Immature Platelets 5.1 % (1.1-6.1); Mean Corpuscular HGB Conc 33.7 g/dL (31.6-35.5); Mean Corpuscular Hemoglobin 29.5 pg (28.0-33.3); Mean Corpuscular Volume 87.7 fL (83.0-100.0); Mean Platelet Volume 10.7 fL (9.4-12.4); Red Blood Count 3.49 M/mcL (4.19-5.50); White Blood Count 5.7 K/mcL (4.3-11.1)
[2019-02-11 07:21] LABS: Calcium 8.5 mg/dL (8.6-10.3); Magnesium 2.3 mg/dL (1.6-2.6); Potassium 4.1 mEq/L (3.5-5.1)
[2019-02-11] MEDS: Aspirin Enteric Coated 81 MG Tablet PO SCH (09:53)
[2019-02-11] MEDS: Sennosides/Docusate Sodium TABLET PO SCH ×2 (09:53→20:01)
[2019-02-11] MEDS: Bumetanide 1 MG/4 ML VIAL IVP SCH (09:53)
[2019-02-11] MEDS: Finasteride 5 MG TABLET PO SCH (09:53)
[2019-02-11] MEDS: Metoprolol XL (24 HR) Succ 50 MG TAB.ER.24H PO SCH (09:53)
[2019-02-11] MEDS: Insulin LISPRO 300 UNITS/3 ML VIAL SQ SCH ×3 (09:54→16:28)
[2019-02-11 17:23] LABS: Bilirubin,Urine Small (Negative); Blood,Urine Large (Negative); Clarity,Urine Turbid (Clear); Color,Urine Red (Yellow); Glucose,Urine (UA) Normal (Normal); Ketones,Urine Trace mg/dL (Negative); Leukocyte Esterase,Urine Moderate (Negative); Nitrite,Urine Negative (Negative); Protein,Urine >=300 mg/dL (Neg-Trace); Specific Gravity,Urine 1.016 (1.010-1.025); Urobilinogen,Urine Normal (Normal)
[2019-02-11 17:24] LABS: Bacteria,Urine Many per hpf (None-Few); Squamous Epithelial Cell,Urine Many per lpf (None-Few); WBC,Urine TNTC per hpf (0-3)
[2019-02-11] MEDS: Insulin DETEMIR 100 UNIT/ML X5UNITS SQ SCH (17:32)
[2019-02-11 17:42] LABS: RBC,Urine 50-100 per hpf (0-3)
[2019-02-11 17:43] LABS: Triple Phosphate Crystal,Urine Present
[2019-02-11 17:52] LABS: Protein/Creatinine Ratio,Urine 2.63 mg/mg (0.00-0.20)
[2019-02-11] MEDS ORDERED: *HR* Warfarin 1 MG TABLET PO ONE (18:00)
[2019-02-11] MEDS ORDERED: cefTRIAXone 1,000 MG in Water for inj. (sterile) 10 ML IVP SCH (19:00)
[2019-02-12 05:16] LABS: Hemoglobin 9.9 g/dL (12.9-16.9); INR 2.6; Prothrombin Time 29.7 Seconds (9.4-12.1)
[2019-02-12 05:18] LABS: Hematocrit 29.1 % (37.5-50.1); Immature Platelets 4.8 % (1.1-6.1); Mean Corpuscular Hemoglobin 29.1 pg (28.0-33.3); Mean Corpuscular Volume 85.6 fL (83.0-100.0); Mean Platelet Volume 10.7 fL (9.4-12.4); Red Blood Count 3.4 M/mcL (4.19-5.50); Red Cell Distribution Width 15.4 % (11.5-14.5); White Blood Count 4.7 K/mcL (4.3-11.1)
[2019-02-12 05:32] LABS: Calcium 8.5 mg/dL (8.6-10.3); Potassium 3.8 mEq/L (3.5-5.1)
[2019-02-12] MEDS: Bumetanide 1 MG/4 ML VIAL IVP SCH (09:10)
[2019-02-12] MEDS: Metoprolol XL (24 HR) Succ 50 MG TAB.ER.24H PO SCH (09:10)
[2019-02-12] MEDS: Finasteride 5 MG TABLET PO SCH (09:10)
[2019-02-12] MEDS: Sennosides/Docusate Sodium TABLET PO SCH ×2 (09:10→21:31)
[2019-02-12] MEDS: Insulin LISPRO 300 UNITS/3 ML VIAL SQ SCH ×4 (09:10→21:32)
[2019-02-12] MEDS: Aspirin Enteric Coated 81 MG Tablet PO SCH (09:10)
[2019-02-12] MEDS: cefTRIAXone 1,000 MG in 0.9 % Sodium Chloride Mini Bag 100 ML IVPB SCH (11:25)
[2019-02-12 15:41] LABS: Bilirubin,Urine Negative (Negative); Blood,Urine Large (Negative); Clarity,Urine Cloudy (Clear); Color,Urine Yellow (Yellow); Glucose,Urine (UA) Normal (Normal); Ketones,Urine Negative (Negative); Leukocyte Esterase,Urine Large (Negative); Nitrite,Urine Negative (Negative); Protein,Urine 100 mg/dL (Neg-Trace); Specific Gravity,Urine 1.016 (1.010-1.025); Urobilinogen,Urine Normal (Normal)
[2019-02-12 15:43] LABS: Bacteria,Urine Few per hpf (None-Few); Hyaline Casts,Urine None Seen per lpf (None-Few); Squamous Epithelial Cell,Urine Moderate per lpf (None-Few); WBC,Urine 50-100 per hpf (0-3)
[2019-02-12 15:45] LABS: RBC,Urine 15-30 per hpf (0-3)
[2019-02-12] MEDS ORDERED: *HR* Warfarin 1 MG TABLET PO ONE (18:00)
[2019-02-13 05:26] LABS: Hematocrit 32.5 % (37.5-50.1); Hemoglobin 10.2 g/dL (12.9-16.9); Immature Platelets 5.6 % (1.1-6.1); Mean Corpuscular HGB Conc 31.4 g/dL (31.6-35.5); Mean Corpuscular Hemoglobin 28.9 pg (28.0-33.3); Mean Corpuscular Volume 92.1 fL (83.0-100.0); Mean Platelet Volume 11.5 fL (9.4-12.4); Red Blood Count 3.53 M/mcL (4.19-5.50); Red Cell Distribution Width 15.8 % (11.5-14.5); White Blood Count 5.8 K/mcL (4.3-11.1)
[2019-02-13 05:32] LABS: INR 2.3; Prothrombin Time 26.4 Seconds (9.4-12.1)
[2019-02-13 05:38] LABS: Calcium 8.5 mg/dL (8.6-10.3); Potassium 4.2 mEq/L (3.5-5.1)
[2019-02-13] MEDS: Insulin LISPRO 300 UNITS/3 ML VIAL SQ SCH ×4 (08:09→20:20)
[2019-02-13] MEDS: Bumetanide 1 MG/4 ML VIAL IVP SCH (08:11)
[2019-02-13] MEDS: cefTRIAXone 1,000 MG in 0.9 % Sodium Chloride Mini Bag 100 ML IVPB SCH (08:20)
[2019-02-13] MEDS: Aspirin Enteric Coated 81 MG Tablet PO SCH (08:26)
[2019-02-13] MEDS: Finasteride 5 MG TABLET PO SCH (08:28)
[2019-02-13] MEDS: Sennosides/Docusate Sodium TABLET PO SCH ×2 (08:31→21:03)
[2019-02-13] MEDS: Metoprolol XL (24 HR) Succ 50 MG TAB.ER.24H PO SCH (08:37)
[2019-02-13] MEDS: Ampicillin 2 GM in 0.9 % Sodium Chloride Mini Bag 100 ML IVPB SCH (17:56)
[2019-02-13] MEDS ORDERED: *HR* Warfarin 1 MG TABLET PO ONE (18:00)
[2019-02-14] MEDS: Ampicillin 2 GM in 0.9 % Sodium Chloride Mini Bag 100 ML IVPB SCH ×5 (00:46→23:33)
[2019-02-14 05:27] LABS: Hematocrit 29.9 % (37.5-50.1); Hemoglobin 10.2 g/dL (12.9-16.9); Immature Platelets 3.5 % (1.1-6.1); Mean Corpuscular HGB Conc 34.1 g/dL (31.6-35.5); Mean Corpuscular Volume 87.9 fL (83.0-100.0); Mean Platelet Volume 10.2 fL (9.4-12.4); Prothrombin Time 22.7 Seconds (9.4-12.1); Red Blood Count 3.4 M/mcL (4.19-5.50); Red Cell Distribution Width 15.5 % (11.5-14.5); White Blood Count 5.6 K/mcL (4.3-11.1)
[2019-02-14 06:02] LABS: Potassium 3.6 mEq/L (3.5-5.1)
[2019-02-14 06:03] LABS: Calcium 8.4 mg/dL (8.6-10.3)
[2019-02-14] MEDS: Insulin LISPRO 300 UNITS/3 ML VIAL SQ SCH ×4 (07:56→20:58)
[2019-02-14] MEDS: Finasteride 5 MG TABLET PO SCH (10:25)
[2019-02-14] MEDS: Sennosides/Docusate Sodium TABLET PO SCH ×2 (10:26→20:57)
[2019-02-14] MEDS: Aspirin Enteric Coated 81 MG Tablet PO SCH (10:26)
[2019-02-14] MEDS: Metoprolol XL (24 HR) Succ 50 MG TAB.ER.24H PO SCH (10:26)
[2019-02-14] MEDS: Bumetanide 1 MG/4 ML VIAL IVP SCH ×2 (11:05→16:25)
[2019-02-14] MEDS ORDERED: *HR* Warfarin 1 MG TABLET PO ONE (18:00)
[2019-02-15 04:47] LABS: Prothrombin Time 22.7 Seconds (9.4-12.1)
[2019-02-15 04:58] LABS: Mean Platelet Volume 10.5 fL (9.4-12.4)
[2019-02-15 05:00] LABS: Hematocrit 28.6 % (37.5-50.1); Hemoglobin 9.4 g/dL (12.9-16.9); Immature Platelets 4.2 % (1.1-6.1); Mean Corpuscular HGB Conc 32.9 g/dL (31.6-35.5); Mean Corpuscular Hemoglobin 29.8 pg (28.0-33.3); Mean Corpuscular Volume 90.8 fL (83.0-100.0); Red Blood Count 3.15 M/mcL (4.19-5.50); Red Cell Distribution Width 15.3 % (11.5-14.5)
[2019-02-15 05:03] LABS: Calcium 8.3 mg/dL (8.6-10.3); Potassium 3.6 mEq/L (3.5-5.1)
[2019-02-15] MEDS: Ampicillin 2 GM in 0.9 % Sodium Chloride Mini Bag 100 ML IVPB SCH ×4 (05:30→23:33)
[2019-02-15] MEDS: Insulin LISPRO 300 UNITS/3 ML VIAL SQ SCH ×4 (07:46→21:24)
[2019-02-15] MEDS: Bumetanide 1 MG/4 ML VIAL IVP SCH ×2 (07:46→17:43)
[2019-02-15] MEDS: Finasteride 5 MG TABLET PO SCH (07:47)
[2019-02-15] MEDS: Sennosides/Docusate Sodium TABLET PO SCH ×2 (07:47→21:24)
[2019-02-15] MEDS: Aspirin Enteric Coated 81 MG Tablet PO SCH (07:47)
[2019-02-15] MEDS: Metoprolol XL (24 HR) Succ 50 MG TAB.ER.24H PO SCH (07:47)
[2019-02-15] MEDS ORDERED: Vancomycin Oral Soln 125 MG/2.5 ML UDC PO SCH (13:00)
[2019-02-15] MEDS ORDERED: *HR* Warfarin 1 MG TABLET PO ONE (18:00)
[2019-02-16 05:04] LABS: Mean Platelet Volume 10.4 fL (9.4-12.4); Red Cell Distribution Width 15.3 % (11.5-14.5)
[2019-02-16 05:06] LABS: Hematocrit 29.3 % (37.5-50.1); Hemoglobin 9.7 g/dL (12.9-16.9); INR 2.4; Immature Platelets 3.7 % (1.1-6.1); Mean Corpuscular HGB Conc 33.1 g/dL (31.6-35.5); Mean Corpuscular Hemoglobin 29.2 pg (28.0-33.3); Mean Corpuscular Volume 88.3 fL (83.0-100.0); Prothrombin Time 26.9 Seconds (9.4-12.1); Red Blood Count 3.32 M/mcL (4.19-5.50); White Blood Count 4.3 K/mcL (4.3-11.1)
[2019-02-16 05:21] LABS: Calcium 8.3 mg/dL (8.6-10.3); Potassium 3.8 mEq/L (3.5-5.1)
[2019-02-16] MEDS: Ampicillin 2 GM in 0.9 % Sodium Chloride Mini Bag 100 ML IVPB SCH ×3 (05:43→17:47)
[2019-02-16] MEDS: Insulin LISPRO 300 UNITS/3 ML VIAL SQ SCH ×6 (07:49→22:10)
[2019-02-16] MEDS: Finasteride 5 MG TABLET PO SCH (07:58)
[2019-02-16] MEDS: Metoprolol XL (24 HR) Succ 50 MG TAB.ER.24H PO SCH (07:59)
[2019-02-16] MEDS: Sennosides/Docusate Sodium TABLET PO SCH ×2 (07:59→22:05)
[2019-02-16] MEDS: Aspirin Enteric Coated 81 MG Tablet PO SCH (07:59)
[2019-02-16] MEDS: Bumetanide 1 MG/4 ML VIAL IVP SCH (08:00)
[2019-02-16] MEDS: Furosemide 240 MG in 0.9 % Sodium Chloride 96 ML IVC SCH (11:40)
[2019-02-16] MEDS ORDERED: *HR* Warfarin 1 MG TABLET PO ONE (18:00)
[2019-02-17] MEDS: Ampicillin 2 GM in 0.9 % Sodium Chloride Mini Bag 100 ML IVPB SCH ×4 (00:52→17:57)
[2019-02-17] MEDS: Insulin LISPRO 300 UNITS/3 ML VIAL SQ SCH ×5 (02:22→21:49)
[2019-02-17 04:49] LABS: INR 2.4; Prothrombin Time 27.5 Seconds (9.4-12.1)
[2019-02-17 04:50] LABS: Hematocrit 29.3 % (37.5-50.1); Hemoglobin 9.5 g/dL (12.9-16.9); Immature Platelets 3.8 % (1.1-6.1); Mean Corpuscular HGB Conc 32.4 g/dL (31.6-35.5); Mean Corpuscular Hemoglobin 28.7 pg (28.0-33.3); Mean Corpuscular Volume 88.5 fL (83.0-100.0); Mean Platelet Volume 10.4 fL (9.4-12.4); Red Blood Count 3.31 M/mcL (4.19-5.50); Red Cell Distribution Width 15.4 % (11.5-14.5); White Blood Count 4.6 K/mcL (4.3-11.1)
[2019-02-17 06:02] LABS: Calcium 8.3 mg/dL (8.6-10.3); Potassium 3.8 mEq/L (3.5-5.1)
[2019-02-17] MEDS: Aspirin Enteric Coated 81 MG Tablet PO SCH (08:18)
[2019-02-17] MEDS: Finasteride 5 MG TABLET PO SCH (08:18)
[2019-02-17] MEDS: Sennosides/Docusate Sodium TABLET PO SCH ×2 (08:18→21:49)
[2019-02-17] MEDS: Metoprolol XL (24 HR) Succ 50 MG TAB.ER.24H PO SCH (08:18)
[2019-02-17] MEDS: Furosemide 240 MG in 0.9 % Sodium Chloride 96 ML IVC SCH (11:05)
[2019-02-17] MEDS: Albumin 25% 25gram/100mL 25 GM/100 ML IV.SOLN IVPB SCH ×2 (11:38→18:42)
[2019-02-17] MEDS: Furosemide 40 MG/4 ML VIAL IVP SCH ×2 (13:49→21:49)
[2019-02-17] MEDS ORDERED: *HR* Warfarin 1 MG TABLET PO ONE (18:00)
[2019-02-18] MEDS: Ampicillin 2 GM in 0.9 % Sodium Chloride Mini Bag 100 ML IVPB SCH ×3 (02:49→21:45)
[2019-02-18] MEDS: Albumin 25% 25gram/100mL 25 GM/100 ML IV.SOLN IVPB SCH ×3 (03:56→19:31)
[2019-02-18 05:55] LABS: INR 2.4; Prothrombin Time 27.7 Seconds (9.4-12.1)
[2019-02-18 06:08] LABS: Hematocrit 31.5 % (37.5-50.1)
[2019-02-18 06:09] LABS: Hemoglobin 10.3 g/dL (12.9-16.9); Immature Platelets 4.5 % (1.1-6.1); Mean Corpuscular HGB Conc 32.7 g/dL (31.6-35.5); Mean Corpuscular Hemoglobin 29.6 pg (28.0-33.3); Mean Corpuscular Volume 90.5 fL (83.0-100.0); Mean Platelet Volume 10.6 fL (9.4-12.4); Red Blood Count 3.48 M/mcL (4.19-5.50); Red Cell Distribution Width 15.7 % (11.5-14.5); White Blood Count 5.5 K/mcL (4.3-11.1)
[2019-02-18] MEDS: Furosemide 40 MG/4 ML VIAL IVP SCH ×3 (06:20→20:13)
[2019-02-18 06:26] LABS: Albumin 4.2 g/dL (3.5-5.7); Phosphorous 4.4 mg/dL (2.7-4.5); Potassium 4.1 mEq/L (3.5-5.1)
[2019-02-18] MEDS: Insulin LISPRO 300 UNITS/3 ML VIAL SQ SCH ×4 (09:12→20:19)
[2019-02-18] MEDS: Finasteride 5 MG TABLET PO SCH (09:26)
[2019-02-18] MEDS: Aspirin Enteric Coated 81 MG Tablet PO SCH (09:26)
[2019-02-18] MEDS: Metoprolol XL (24 HR) Succ 50 MG TAB.ER.24H PO SCH (09:27)
[2019-02-18] MEDS: Sennosides/Docusate Sodium TABLET PO SCH ×2 (09:27→20:13)
[2019-02-18] MEDS ORDERED: *HR* Warfarin 1 MG TABLET PO ONE (18:00)
[2019-02-19] MEDS ORDERED: Melatonin 3 MG TABLET PO ONE (01:23)
[2019-02-19] MEDS: Albumin 25% 25gram/100mL 25 GM/100 ML IV.SOLN IVPB SCH ×3 (03:30→23:26)
[2019-02-19 03:51] LABS: Red Cell Distribution Width 15.7 % (11.5-14.5)
[2019-02-19 03:53] LABS: Hematocrit 32.1 % (37.5-50.1); Hemoglobin 10.6 g/dL (12.9-16.9); Immature Platelets 6.1 % (1.1-6.1); Mean Corpuscular Hemoglobin 29.5 pg (28.0-33.3); Mean Corpuscular Volume 89.4 fL (83.0-100.0); Mean Platelet Volume 10.7 fL (9.4-12.4); Red Blood Count 3.59 M/mcL (4.19-5.50); White Blood Count 7.9 K/mcL (4.3-11.1)
[2019-02-19 03:57] LABS: INR 2.5; Prothrombin Time 28.1 Seconds (9.4-12.1)
[2019-02-19] MEDS: Furosemide 40 MG/4 ML VIAL IVP SCH (04:14)
[2019-02-19 04:48] LABS: Calcium 9.3 mg/dL (8.6-10.3); Potassium 4.5 mEq/L (3.5-5.1)
[2019-02-19] MEDS: Insulin LISPRO 300 UNITS/3 ML VIAL SQ SCH ×4 (07:58→21:23)
[2019-02-19] MEDS: Finasteride 5 MG TABLET PO SCH (08:08)
[2019-02-19] MEDS: Aspirin Enteric Coated 81 MG Tablet PO SCH (08:08)
[2019-02-19] MEDS: Sennosides/Docusate Sodium TABLET PO SCH ×2 (08:09→21:22)
[2019-02-19] MEDS: Metoprolol XL (24 HR) Succ 50 MG TAB.ER.24H PO SCH (08:09)
[2019-02-19] MEDS ORDERED: Ipratropium/Albuterol Neb 3 ML IH PRN (08:25)
[2019-02-19] MEDS: Ampicillin 2 GM in 0.9 % Sodium Chloride Mini Bag 100 ML IVPB SCH ×2 (09:42→21:24)
[2019-02-19 10:20] LABS: Sodium, Urine 22.3 mEq/L
[2019-02-19] MEDS: hydrOXYzine pamoate 25 MG CAPSULE PO PRN ×2 (14:50→21:27)
[2019-02-19] MEDS ORDERED: *HR* Warfarin 1 MG TABLET PO ONE (18:00)
[2019-02-20 03:36] LABS: ABG Base Excess -5 mEq/L (-2 to 3); ABG HCO3 21 mEq/L (21-27); ABG Oxygen Saturation 99 % (95-98); ABG PCO2 45 mmHg (35-45); ABG PH 7.28 pH Units (7.32-7.45); ABG PO2 167 mmHg (85-104); ABG TCO2 23 mEq/L (20-26)
[2019-02-20 03:51] LABS: INR 3.3; Prothrombin Time 37.9 Seconds (9.4-12.1)
[2019-02-20 04:06] LABS: Calcium 9.2 mg/dL (8.6-10.3); Potassium 5.3 mEq/L (3.5-5.1)
[2019-02-20 04:32] LABS: Troponin I 0.31 ng/mL (< 0.04)
[2019-02-20] MEDS: Metoprolol XL (24 HR) Succ 50 MG TAB.ER.24H PO SCH (08:18)
[2019-02-20] MEDS: Aspirin Enteric Coated 81 MG Tablet PO SCH (08:24)
[2019-02-20] MEDS: Sennosides/Docusate Sodium TABLET PO SCH ×2 (08:24→21:18)
[2019-02-20] MEDS: Insulin LISPRO 300 UNITS/3 ML VIAL SQ SCH ×4 (08:25→21:19)
[2019-02-20] MEDS: Finasteride 5 MG TABLET PO SCH (08:25)
[2019-02-20] MEDS: hydrOXYzine pamoate 25 MG CAPSULE PO PRN (09:44)
[2019-02-20] MEDS: Albumin 25% 25gram/100mL 25 GM/100 ML IV.SOLN IVPB SCH ×2 (09:44→15:34)
[2019-02-20] MEDS: Ampicillin 2 GM in 0.9 % Sodium Chloride Mini Bag 100 ML IVPB SCH ×2 (09:45→21:19)
[2019-02-20 11:36] LABS: Hepatitis B Surface Antibody 16.32 mIU/mL
[2019-02-20 11:47] LABS: Hepatitis B Surface Antigen Nonreactive (Nonreactive)
[2019-02-20 12:16] LABS: Hepatitis B Core IgM Nonreactive (Nonreactive)
[2019-02-20] MEDS ORDERED: 0.9 % Sodium Chloride 250 ML IVC PRN (12:26)
[2019-02-20] MEDS ORDERED: *HR* Heparin 10,000 UNIT/10 ML VIAL IV PRN ×2 (12:26)
[2019-02-20] MEDS ORDERED: 0.9 % Sodium Chloride 1,000 ML PRIME SCH (12:30)
[2019-02-20] MEDS ORDERED: Ondansetron ODT 4 MG TAB.RAPDIS SL PRN (13:51)
[2019-02-20] MEDS ORDERED: 0.9 % Sodium Chloride 250 ML ONE ×2 (13:55→14:25)
[2019-02-20] MEDS ORDERED: *HR* Heparin 5,000 UNIT/ML VIAL ONE (14:42)
[2019-02-20 18:39] LABS: INR 2.8; Prothrombin Time 32.1 Seconds (9.4-12.1)
[2019-02-21 03:16] LABS: INR 3.2; Prothrombin Time 36.4 Seconds (9.4-12.1)
[2019-02-21 03:31] LABS: Potassium 5.1 mEq/L (3.5-5.1)
[2019-02-21] MEDS: Metoprolol XL (24 HR) Succ 50 MG TAB.ER.24H PO SCH (08:13)
[2019-02-21] MEDS: Aspirin Enteric Coated 81 MG Tablet PO SCH (08:13)
[2019-02-21] MEDS: Insulin LISPRO 300 UNITS/3 ML VIAL SQ SCH ×2 (08:13→11:05)
[2019-02-21] MEDS: Sennosides/Docusate Sodium TABLET PO SCH (08:13)
[2019-02-21] MEDS: Finasteride 5 MG TABLET PO SCH (08:13)
[2019-02-21] MEDS ORDERED: Albumin 25% 25gram/100mL 25 GM/100 ML IV.SOLN IVPB PRN (08:18)
[2019-02-21] MEDS ORDERED: *HR* Heparin 10,000 UNIT/10 ML VIAL IV PRN ×2 (08:18)
[2019-02-21] MEDS ORDERED: 0.9 % Sodium Chloride 250 ML IVC PRN (08:18)
[2019-02-21 08:21] VITALS: BP 72/46
[2019-02-21 09:00] LABS: ABG Base Excess -6 mEq/L (-2 to 3); ABG HCO3 24 mEq/L (21-27); ABG Oxygen Saturation 92 % (95-98); ABG PCO2 72 mmHg (35-45); ABG PH 7.12 pH Units (7.32-7.45); ABG PO2 85 mmHg (85-104); ABG TCO2 26 mEq/L (20-26)
[2019-02-21] MEDS ORDERED: *HR* FentaNYL (PF) 100 MCG/2 ML VIAL IVP PRN (10:00)
[2019-02-21] MEDS ORDERED: Glycopyrrolate 0.2 MG/ML VIAL IVP ONE (10:02)
[2019-02-21] MEDS ORDERED: Atropine Sulfate 1% 40 DROP/2 ML BOTTLE SL PRN (10:02)
[2019-02-21] MEDS ORDERED: Ampicillin 2 GM in 0.9 % Sodium Chloride Mini Bag 100 ML IVPB SCH (16:00)
== END 2019-02-21 11:53 | disposition expired | DRG 291 ==
LOC: EMEROOARM 21:58 → 2ANU 21:58 → SUATTDRO 02-05 03:19 → 2ANU 02-05 03:49 → SUATTDRO 02-06 15:29 → 2ANU 02-10 21:46
PROVIDERS: ADMIT Family Medicine; ATTEND Internal Medicine